=== PATIENT | female | born 1990 | race Caucasian/White ===

== ENCOUNTER 2018-02-03 13:56 | Emergency (ER) | payer SELFPAY ==
--- NOTE | 2018-02-03 15:24 | ER ---
Nurse's Notes [facility] Name: Teetee Hannah Age: 27 yrs Sex: Female : 1990 Arrival Date: 02/03/2018 Time: 13:58 Bed Waiting Private MD: Diagnosis: Presentation: 02/03 14:40 Presenting complaint: Patient states: Sent by PCP for BGL >400. Pt reports "I feel hb fine, I just need clearance to go back to work.". Transition of care: patient was not received from another setting of care. Onset of symptoms was February 03, 2018. Risk Assessment: Do you want to hurt yourself or someone else? Patient reports no desire to harm self or others. 14:40 Method Of Arrival: Ambulatory hb 14:40 Acuity: LO 3 hb Historical: - Allergies: 14:42 Humalog; hb - Home Meds: 14:42 Latuda 40 mg Oral tab 1 tab once daily for Depression associated with Bipolar Disorder hb [Active]; Trintellix oral oral [Active]; Novolog 100 unit/mL Sub-Q soln [Active]; - PMHx: 14:42 Bipolar disorder; Depression; Diabetes - IDDM; hb - PSHx: 14:42 None; hb - Immunization history:: Adult Immunizations up to date. - Social history:: Smoking status: Patient/guardian denies using tobacco. - Ebola Screening: : No symptoms or risks identified at this time. Vital Signs: 14:40 BP 123 / 88; Pulse 105; Resp 16; Temp 98.4; Pulse Ox 100% on R/A; Weight 91.63 kg; hb Height 5 ft. 9 in. (175.26 cm); Pain 0/10; 14:40 Body Mass Index 29.83 (91.63 kg, 175.26 cm) hb ED Course: 13:58 Patient arrived in ED. sb2 14:41 Triage completed. hb 14:42 Arm band placed on right wrist. hb Administered Medications: No medications were administered Point of Care Testing: Blood Glucose: 14:40 Blood Glucose: 73 mg/dL; hb Ranges: Outcome: 15:23 Patient left the ED. hb Signatures: Naila Chavarria RN RN Marybeth Magaña sb2
[2018-02-03 16:35] VITALS: BP 123/88; TEMP 98.4; O2SAT 100
== END 2018-02-03 15:23 | disposition left against medical advice (07) ==
LOC: ER 13:56
DX: Z53.21 Procedure and treatment not carried out due to patient leaving prior to being seen by health care provider (principal)
CPT/HCPCS: 82962; 99281

== ENCOUNTER 2018-03-03 07:02 | Emergency (ER) | payer OTHER, SELFPAY ==
[2018-03-03] MEDS ORDERED: NA CHLORIDE 0.9% 1,000 ML ONE ×2 (07:27→09:53)
[2018-03-03] MEDS ORDERED: ONDANSETRON 4 MG/2 ML VIAL ONE (07:27)
[2018-03-03 07:31] LABS: Urine Blood NEGATIVE (NEG); Urine Glucose 2+ (NEG); Urine Protein NEGATIVE (NEG); Urine Specific Gravity 1.025 (1.005-1.030); Urine pH 5.5 (5.0-7.0)
[2018-03-03 07:56] LABS: Absolute Lymphocytes (CBC) 0.8 K/uL (0.7-4.9); Absolute Monocytes 0.5 K/uL (0.1-1.3); Absolute Neutrophil 5.3 K/uL (1.8-8.0); Basophils % 0.2 % (0-1.3); Eosinophils % 0.3 % (0-4.4); Hematocrit 40.3 % (36.0-45.0); Lymphocytes % 12.3 % (15.3-44.8); MPV 9.9 fL (7.6-11.3); RBC Red Blood Cell Count 4.25 M/uL (3.86-4.86)
[2018-03-03 08:03] LABS: Urine Bacteria <20 /HPF (<20); Urine Culture Reflex Order NOT NEEDED; Urine RBC <5 /HPF (NONE SEEN)
[2018-03-03 08:11] LABS: Albumin 3.1 g/dL (3.4-5.0); Bilirubin Direct 0.3 mg/dL (0-0.2); Bilirubin Total 1.1 mg/dL (0.2-1.0); Potassium 4.7 mmol/L (3.5-5.1)
[2018-03-03] MEDS ORDERED: INSULIN -REGULAR HUMAN 50 UNIT/0.5 ML ML ONE (08:52)
[2018-03-03 10:12] LABS: Potassium 4.7 mmol/L (3.5-5.1)
--- NOTE | 2018-03-03 11:20 | EDPHYS ---
Physician Documentation [facility] Name: Teetee Hannah Age: 27 yrs Sex: Female : 1990 Arrival Date: 03/03/2018 Time: 07:03 Bed 7 Private MD: Yaakov Goins H ED Physician Keshawn Sousa HPI: 03/03 07:21 This 27 yrs old Female presents to ER via EMS with complaints of High Blood kdr Sugar. 07:21 This 27 yrs old Female presents to ER via EMS with complaints of High Blood kdr Sugar \T\ vomiting. 07:21 The patient states that she changed her insulin site last night and then this morning, kdr she began to have vomiting. She took her BS and noted it to be 416. She feels like she may be becoming debhydrated.. Onset: The symptoms/episode began/occurred gradually, just prior to arrival, this morning. Severity of symptoms: At their worst the symptoms were mild in the emergency department the symptoms have improved mildly. The patient has experienced similar episodes in the past, a few times. The patient has not recently seen a physician. Historical: - Allergies: 07:06 Humalog; ak1 - Home Meds: 07:06 Latuda 40 mg Oral tab 1 tab once daily for Depression associated with Bipolar Disorder ak1 [Active]; Novolog 100 unit/mL Sub-Q soln [Active]; Trintellix Oral [Active]; Wellbutrin XL 80mg Oral 1 tab once daily for Depression associated with Bipolar Disorder [Active]; - PMHx: 07:06 Bipolar disorder; Depression; Diabetes - IDDM; ak1 - PSHx: 07:06 None; ak1 - Immunization history:: Adult Immunizations unknown. - Social history:: Smoking status: unknown. - Ebola Screening: : No symptoms or risks identified at this time. ROS: 07:21 Constitutional: Negative for fever, chills, and weight loss, Eyes: Negative for injury, kdr pain, redness, and discharge, ENT: Negative for injury, pain, and discharge, Neck: Negative for injury, pain, and swelling, Cardiovascular: Negative for palpitations, and edema - she did have chest pain when she was vomiting Respiratory: Negative for shortness of breath, cough, wheezing, and pleuritic chest pain, Abdomen/GI: Negative for abdominal pain, nausea, vomiting, diarrhea, and constipation, Back: Negative for injury and pain, : Negative for injury, bleeding, discharge, and swelling, MS/Extremity: Negative for injury and deformity, Skin: Negative for injury, rash, and discoloration, Neuro: Negative for headache, weakness, numbness, tingling, and seizure activity. Psych: Negative for depression, anxiety, suicide ideation, homicidal ideation, and hallucinations, Allergy/Immunology: Negative for hives, rash, and allergies, Hematologic/Lymphatic: Negative for swollen nodes, abnormal bleeding, and unusual bruising. 07:21 Endocrine: Positive for Increased vomiting and feeling of dehydration. Exam: 07:21 Constitutional: This is a well developed, well nourished patient who is awake, alert, kdr and in no acute distress. Head/Face: Normocephalic, atraumatic. Eyes: Pupils equal round and reactive to light, extra-ocular motions intact. Lids and lashes normal. Conjunctiva and sclera are non-icteric and not injected. Cornea within normal limits. Periorbital areas with no swelling, redness, or edema. Neck: Trachea midline, no thyromegaly or masses palpated, and no cervical lymphadenopathy. Supple, full range of motion without nuchal rigidity, or vertebral point tenderness. No Meningismus. Chest/axilla: Normal chest wall appearance and motion. Nontender with no deformity. No lesions are appreciated. Cardiovascular: Regular rate and rhythm with a normal S1 and S2. No gallops, murmurs, or rubs. Normal PMI, no JVD. No pulse deficits. Respiratory: Lungs have equal breath sounds bilaterally, clear to auscultation and percussion. No rales, rhonchi or wheezes noted. No increased work of breathing, no retractions or nasal flaring. Abdomen/GI: Soft, non-tender, with normal bowel sounds. No distension or tympany. No guarding or rebound. No evidence of tenderness throughout - Insulin oump location LLQ Back: No spinal tenderness. No costovertebral tenderness. Full range of motion. Skin: Warm, dry with normal turgor. Normal color with no rashes, no lesions, and no evidence of cellulitis. MS/ Extremity: Pulses equal, no cyanosis. Neurovascular intact. Full, normal range of motion. Neuro: Awake and alert, GCS 15, oriented to person, place, time, and situation. Cranial nerves II-XII grossly intact. Motor strength 5/5 in all extremities. Sensory grossly intact. Cerebellar exam normal. Normal gait. Psych: Awake, alert, with orientation to person, place and time. Behavior, mood, and affect are within normal limits. Vital Signs: 07:03 BP 123 / 82; Pulse 83; Resp 18; Temp 97.6(O); Pulse Ox 100% on R/A; Weight 90.72 kg ak1 (R); Height 5 ft. 9 in. (175.26 cm) (R); Pain 2/10; 08:00 BP 112 / 62; Pulse 70; Resp 17; Pulse Ox 99% on R/A; Pain 0/10; sg 09:00 BP 115 / 64; Pulse 72; Resp 17; Pulse Ox 100% on R/A; Pain 0/10; sg 07:03 Body Mass Index 29.53 (90.72 kg, 175.26 cm) ak1 MDM: 11:19 Patient medically screened. kdr 15:34 Data reviewed: vital signs, lab test result(s), EKG, radiologic studies. Counseling: I kdr had a detailed discussion with the patient and/or guardian regarding: the historical points, exam findings, and any diagnostic results supporting the discharge/admit diagnosis, lab results, radiology results, the need for outpatient follow up. Special discussion: I discussed with the patient/guardian in detail that at this point there is no indication for admission to the hospital. It is understood, however, that if the symptoms persist or worsen the patient needs to return immediately for re-evaluation. 03/03 07:10 Order name: FSBG - FOR PT WITH NO ID 03/03 07:13 Order name: Urine Dipstick--Ancillary (enter results); Complete Time: 07:56 eb 03/03 07:13 Order name: Urine --Ancillary (enter results); Complete Time: 07:56 eb 03/03 07:21 Order name: Basic Metabolic Panel; Complete Time: 08:52 kdr 03/03 07:21 Order name: CBC with Diff; Complete Time: 08:52 kdr 03/03 07:21 Order name: Creatinine for Radiology; Complete Time: 08:52 kdr 03/03 07:21 Order name: Hepatic Function; Complete Time: 08:52 kdr 03/03 07:21 Order name: Lipase; Complete Time: 08:52 kdr 07 07:21 Order name: Urine Microscopic Only; Complete Time: 08:52 kdr 03/03 08:09 Order name: Glucose, Ancillary Testing; Complete Time: 08:52 EDMS 03/03 09:44 Order name: Chem 7 kdr 03/03 07:21 Order name: Misc. Order: Ice Chips; Complete Time: 09:14 kdr 03/03 07:21 Order name: IV Saline Lock; Complete Time: 07:41 kdr 03/03 07:21 Order name: Labs collected and sent; Complete Time: 07:41 kdr 03/03 07:21 Order name: Urine Dipstick-Ancillary (obtain specimen); Complete Time: :41 kdr Administered Medications: 07:30 Drug: NS 0.9% 1000 ml Route: IV; Rate: 1 bolus; Site: right antecubital; sg 08:00 Follow up: Response: No adverse reaction; IV Status: Completed infusion; IV Intake: sg 990ml 07:30 Drug: Zofran 4 mg Route: IVP; Site: right antecubital; sg 09:00 Follow up: Response: No adverse reaction; Nausea is decreased sg 08:40 Drug: Insulin Regular Human 4 units {Co-Signature: hb (Naila Chavarria RN).} Route: IVP; sg Site: right antecubital; 09:35 Follow up: Response: No adverse reaction; Blood sugar is lowered sg 10:05 Drug: NS 0.9% 1000 ml Route: IV; Rate: 1 bolus; Site: right antecubital; Point of Care Testing: Blood Glucose: 09:38 Blood Glucose: 199 mg/dL; sg 10:01 Blood Glucose: 187 mg/dL; hb Ranges: Critical Glucose Levels:Adult <50 mg/dl or >400 mg/dl <40 mg/dl or >180 mg/dl Disposition: 03/03/18 11:19 Discharged to Home. Impression: Hyperglycemia, unspecified, Mild/early DKA. - Condition is Stable. - Discharge Instructions: Hyperglycemia, [id number]. - Work release form, Medication Reconciliation Form, Thank You Letter form. - Follow up: Yaakov Goins DO; When: 2 - 3 days; Reason: If symptoms return, Further diagnostic work-up, Recheck today's complaints, Continuance of care, Re-evaluation by your physician. - Problem is an acute exacerbation. - Symptoms have improved. Signatures: Dispatcher [employer] EDDaren Kerr, RN RN sg Keshawn Sousa MD MD [facility] Yokasta Hernandez RN RN Savannah Quinones RN RN ak1 Naila Chavarria RN Corrections: (The following items were deleted from the chart) 11:28 11:19 03/03/2018 11:19 Discharged to Home. Impression: Hyperglycemia, unspecified; sg Mild/early DKA. Condition is Stable. Forms are Work release form, Medication Reconciliation Form, Thank You Letter, Antibiotic Education, Prescription Opioid Use. Follow up: Yaakov Goins; When: 2 - 3 days; Reason: If symptoms return, Further diagnostic work-up, Recheck today's complaints, Continuance of care, Re-evaluation by your physician. Problem is an acute exacerbation. Symptoms have improved. kdr
--- NOTE | 2018-03-03 11:20 | ER ---
Nurse's Notes [facility] Name: Teetee Hannah Age: 27 yrs Sex: Female : 1990 Arrival Date: 03/03/2018 Time: 07:03 Bed 7 Private MD: Yaakov Goins H Diagnosis: Hyperglycemia, unspecified;Mild/early DKA Presentation: 03/03 07:04 Presenting complaint: EMS states: pt with FSBG 443 due to insulin pump fail. pt changed ak1 her pump site this morning and bolused insulin. pt c/o "slight chest discomfort.". Transition of care: patient was not received from another setting of care. Onset of symptoms was March 03, 2018. Risk Assessment: Do you want to hurt yourself or someone else? Patient reports no desire to harm self or others. Initial Sepsis Screen: Does the patient meet any 2 criteria? No. Patient's initial sepsis screen is negative. Does the patient have a suspected source of infection? No. Patient's initial sepsis screen is negative. Care prior to arrival: None. 07:04 Method Of Arrival: EMS: [facility] ak1 07:04 Acuity: LO 3 ak1 Historical: - Allergies: 07:06 Humalog; ak1 - Home Meds: 07:06 Latuda 40 mg Oral tab 1 tab once daily for Depression associated with Bipolar Disorder ak1 [Active]; Novolog 100 unit/mL Sub-Q soln [Active]; Trintellix Oral [Active]; Wellbutrin XL 80mg Oral 1 tab once daily for Depression associated with Bipolar Disorder [Active]; - PMHx: 07:06 Bipolar disorder; Depression; Diabetes - IDDM; ak1 - PSHx: 07:06 None; ak1 - Immunization history:: Adult Immunizations unknown. - Social history:: Smoking status: unknown. - Ebola Screening: : No symptoms or risks identified at this time. Screenin:07 Abuse screen: Denies threats or abuse. Denies injuries from another. Nutritional ak1 screening: No deficits noted. Tuberculosis screening: No symptoms or risk factors identified. Fall Risk None identified. Assessment: 07:12 General: Appears in no apparent distress. comfortable, well groomed, well developed, sg well nourished, Behavior is calm, cooperative, appropriate for age. Pain: Complains of pain in chest and abdomen Quality of pain is described as aching, "discomfort". Neuro: Level of Consciousness is awake, alert, obeys commands, Oriented to person, place, time, situation, Negotiations Director are equal bilaterally Moves all extremities. Full function Gait is steady, Speech is normal, Facial symmetry appears normal. Cardiovascular: Heart tones S1 S2 present Capillary refill is brisk in bilateral fingers Patient's skin is warm and dry. Chest pain quality is "discomfort, aching.". Respiratory: Airway is patent Respiratory effort is even, unlabored, Respiratory pattern is regular, symmetrical. GI: Abdomen is flat, non-distended, Reports vomiting, Patient currently denies constipation, diarrhea, nausea. : No signs and/or symptoms were reported regarding the genitourinary system. EENT: No signs and/or symptoms were reported regarding the EENT system. Derm: Skin is intact, is healthy with good turgor, Skin is dry, Skin is pink, warm \\T\\ dry. Skin temperature is warm. Musculoskeletal: No signs and/or symptoms reported regarding the musculoskeletal system. 07:15 Reassessment: at bedside evaluating pt at this time, awaiting orders. sg 09:38 Reassessment: Patient appears in no apparent distress at this time. Patient and/or sg family updated on plan of care and expected duration. Pain level reassessed. Patient is alert, oriented x 3, equal unlabored respirations, skin warm/dry/pink. reports ready to be d/c, notified of pt status and request to go home, no new orders received at this time, will continue to monitor Patient denies pain at this time. Patient states feeling better. Vital Signs: 07:03 BP 123 / 82; Pulse 83; Resp 18; Temp 97.6(O); Pulse Ox 100% on R/A; Weight 90.72 kg ak1 (R); Height 5 ft. 9 in. (175.26 cm) (R); Pain 2/10; 08:00 BP 112 / 62; Pulse 70; Resp 17; Pulse Ox 99% on R/A; Pain 0/10; sg 09:00 BP 115 / 64; Pulse 72; Resp 17; Pulse Ox 100% on R/A; Pain 0/10; sg 07:03 Body Mass Index 29.53 (90.72 kg, 175.26 cm) ak1 ED Course: 07:03 Patient arrived in ED. ak1 07:03 Keshawn Sousa MD is Attending Physician. kdr 07:03 Arm band placed on Patient placed in an exam room, on a stretcher, Patient notified of ak1 wait time. 07:05 Triage completed. ak1 07:07 Patient has correct armband on for positive identification. Bed in low position. Call ak1 light in reach. Side rails up X 1. Pulse ox on. NIBP on. 07:09 Daren Dinh, JOSE is Primary Nurse. sg 07:11 Yaakov Goins DO is Private Physician. sg 07:30 Initial lab(s) drawn, by ks, sent to lab. Urine collected: clean catch specimen. sg Inserted saline lock: 20 gauge in right antecubital area, using aseptic technique. Blood collected. 08:21 Notified primary nurse of glucose-441. sv 08:30 Diet: Patient given ice chips. sg 09:15 Diet: Tolerated well. sg 11:17 Yaakov Goins DO is Referral Physician. kdr Administered Medications: 07:30 Drug: NS 0.9% 1000 ml Route: IV; Rate: 1 bolus; Site: right antecubital; sg 08:00 Follow up: Response: No adverse reaction; IV Status: Completed infusion; IV Intake: sg 990ml 07:30 Drug: Zofran 4 mg Route: IVP; Site: right antecubital; sg 09:00 Follow up: Response: No adverse reaction; Nausea is decreased sg 08:40 Drug: Insulin Regular Human 4 units {Co-Signature: hb (Naila Chavarria RN).} Route: IVP; sg Site: right antecubital; 09:35 Follow up: Response: No adverse reaction; Blood sugar is lowered sg 10:05 Drug: NS 0.9% 1000 ml Route: IV; Rate: 1 bolus; Site: right antecubital; Point of Care Testing: Blood Glucose: 09:38 Blood Glucose: 199 mg/dL; sg 10:01 Blood Glucose: 187 mg/dL; hb Ranges: Intake: 08:00 IV: 990ml; Total: 990ml. sg Outcome: 11:19 Discharge ordered by . kdr 11:28 Patient left the ED. sg Signatures: Negrita Jacome, RN RN sv Daren Dinh, RN RN sg Keshawn Sousa MD MD [facility] Yokasta Hernandez RN RN iw Savannah Quinones RN RN ak1 Naila Chavarria RN RN hb Naila Chavarria RN hb Corrections: (The following items were deleted from the chart) 09:13 09:10 Insulin Regular Human 4 units IVP in right antecubital [facility]
[2018-03-03 11:31] VITALS: TEMP 97.6
[2018-03-03 11:34] VITALS: BP 115/64; O2SAT 100
== END 2018-03-03 11:28 | disposition home or self-care (01) ==
LOC: ER 07:02
DX: E10.10 Type 1 diabetes mellitus with ketoacidosis without coma (principal); F31.9 Bipolar disorder, unspecified; Z96.41 Presence of insulin pump (external) (internal)
CPT/HCPCS: 36415; 80048; 80076; 81003; 81015; 81025; 82962; 83690; 85025; 96374; 96375; 99284; J2405; J7030

== ENCOUNTER 2018-03-12 13:18 | Inpatient (IN) | payer OTHER ==
[2018-03-12] MEDS ORDERED: NA CHLORIDE 0.9% 2,000 ML ONE (14:10)
[2018-03-12 14:41] LABS: Absolute Lymphocytes (CBC) 1.1 K/uL (0.7-4.9); Absolute Monocytes 0.7 K/uL (0.1-1.3); Absolute Neutrophil 7.2 K/uL (1.8-8.0); Basophils % 0.6 % (0-1.3); Hematocrit 45.2 % (36.0-45.0); Lymphocytes % 12.5 % (15.3-44.8); MCH 30.7 pg (27.0-35.0); MCV 92.1 fL (80-100); MPV 9.7 fL (7.6-11.3); Monocytes % 7.8 % (3.3-12.3); RBC Red Blood Cell Count 4.91 M/uL (3.86-4.86)
--- NOTE | 2018-03-12 15:12 | RAD REPORT ---
EXAM DESCRIPTION: RAD - Chest Single View - 03/12/2018 2:20 pm CLINICAL HISTORY: Chest pain COMPARISON: September 10 TECHNIQUE: AP portable chest image was obtained 1416 hours . FINDINGS: Lungs are clear. Heart and vasculature are normal. No measurable pleural effusion and no p neumothorax. No gross bony abnormality seen. No acute aortic findings suspected. IMPRESSION: No acute cardiopulmonary process. No significant interval change.
[2018-03-12 15:44] LABS: BUN Blood Urea Nitrogen 11 mg/dL (7-18); Glucose Level 159 mg/dL (74-106); Potassium 4.9 mmol/L (3.5-5.1); Sodium Level 136 mmol/L (136-145)
[2018-03-12 15:46] LABS: Bicarbonate 14 mmol/L (21-32)
[2018-03-12 16:49] LABS: Potassium 4.9 mmol/L (3.5-5.1)
[2018-03-12] MEDS ORDERED: NA BICARB IV SCH (17:00)
[2018-03-12] MEDS ORDERED: D5W IV SCH (17:00)
[2018-03-12 17:12] LABS: Arterial Blood Carboxyhemoglob 1.1 % (0-1.5); Blood Gas Oxyhemoglobin 95.7 % (94-97); Blood O2 Saturation 97.8 % (92-98.5)
[2018-03-12 17:27] LABS: Urine Blood 1+ (NEG); Urine Glucose NEGATIVE (NEG); Urine Protein 2+ (NEG); Urine Specific Gravity >1.030 (1.005-1.030)
--- NOTE | 2018-03-12 17:37 | ER ---
Nurse's Notes [facility] Name: Teetee Hannah Age: 27 yrs Sex: Female : 1990 Arrival Date: 03/12/2018 Time: 13:20 Bed 5 Private MD: Out, [facility] Diagnosis: Type 1 diabetes mellitus with ketoacidosis Presentation: 03/12 13:47 Presenting complaint: Patient states: " I want to make sure I'm not in DKA, I checked ph my sugar this morning and it was 433, I checked my ketones and they were "large" and I've been throwing up acidic stuff." Pt reports taking 8 units of Novolog, last BGL 214, denies pain, fever, SOB or diarrhea. Transition of care: patient was not received from another setting of care. Onset of symptoms was March 12, 2018. Risk Assessment: Do you want to hurt yourself or someone else? Patient reports no desire to harm self or others. Initial Sepsis Screen: Does the patient meet any 2 criteria? No. Patient's initial sepsis screen is negative. Does the patient have a suspected source of infection? No. Patient's initial sepsis screen is negative. Care prior to arrival: Medication(s) given: Novolog. 13:47 Method Of Arrival: Ambulatory ph 13:47 Acuity: LO 2 ph Historical: - Allergies: 13:51 Humalog; ph - Home Meds: 13:51 Latuda 40 mg Oral tab 1 tab once daily for Depression associated with Bipolar Disorder ph [Active]; Novolog 100 unit/mL Sub-Q soln [Active]; Trintellix Oral [Active]; Wellbutrin XL 80mg Oral 1 tab once daily for Depression associated with Bipolar Disorder [Active]; - PMHx: 13:51 Bipolar disorder; Depression; Diabetes - IDDM; ph 13:52 insulin pump; ph - PSHx: 13:51 gastric sleeve; ph - Immunization history:: Adult Immunizations unknown. - Social history:: Smoking status: unknown. - Ebola Screening: : No symptoms or risks identified at this time. Screenin:10 Abuse screen: Denies threats or abuse. Denies injuries from another. Nutritional sg screening: No deficits noted. Tuberculosis screening: No symptoms or risk factors identified. Never had TB. Fall Risk None identified. Assessment: 14:10 General: Appears in no apparent distress. comfortable, well groomed, well developed, sg well nourished, Behavior is calm, cooperative, appropriate for age. Pain: Denies pain. Neuro: No deficits noted. Cardiovascular: Capillary refill is brisk in bilateral fingers Patient's skin is warm and dry. Respiratory: Airway is patent Respiratory effort is even, unlabored, Respiratory pattern is regular, symmetrical, GI: Reports nausea, vomiting. : No signs and/or symptoms were reported regarding the genitourinary system. EENT: No signs and/or symptoms were reported regarding the EENT system. Derm: Skin is pink, warm \\T\\ dry. Musculoskeletal: No deficits noted. No signs and/or symptoms reported regarding the musculoskeletal system. 16:20 Reassessment: Eugenio WOO at bedside updating pt on results and POC, need for sg admission, pt stated understanding, awaiting admission orders at this time. 17:54 Reassessment: at bedside evaluating pt at this time, awaiting IV Insulin drip sg from pharmacy at this time, pt stated understanding, pt mother to return to ED after running errands, will continue to monitor. Vital Signs: 13:50 BP 113 / 107; Pulse 113; Resp 22; Temp 98.0; Pulse Ox 98% on R/A; Weight 84.82 kg; ph Height 5 ft. 9 in. (175.26 cm); Pain 0/10; 16:53 BP 141 / 86; Pulse 99; Resp 17 S; Pulse Ox 99% on R/A; Pain 0/10; sg 19:06 BP 129 / 82; Pulse 96; Resp 18; Pulse Ox 100% ; Pain 0/10; ak1 20:00 BP 117 / 76; Pulse 94; Resp 18; Pulse Ox 100% on R/A; Pain 0/10; oe 13:50 Body Mass Index 27.61 (84.82 kg, 175.26 cm) ph ED Course: 13:20 Patient arrived in ED. sb2 13:21 Out, of Town is Private Physician. sb2 13:46 Daren Dinh, RN is Primary Nurse. sg 13:50 Triage completed. ph 13:52 Arm band placed on. ph 13:59 Maricruz Schulz FNP-C [facility]. snw 13:59 Farrukh Manuel MD is Attending Physician. snw 14:18 X-ray completed. Portable x-ray completed in exam room. Patient tolerated procedure la2 well. 14:18 Chest Single View XRAY In Process Unspecified. EDMS 14:28 Initial lab(s) drawn, by me, sent to lab. First set of blood cultures drawn by me. dh3 Inserted saline lock: 20 gauge in right antecubital area, using aseptic technique. Blood collected. 14:46 EKG done, by technical account manager. reviewed by Maricruz JOLLEY. 3 17:36 Mar Baeza MD is Hospitalizing Provider. snw 19:08 Report given to Savannah GARCIA. sv 19:52 Patient has correct armband on for positive identification. Bed in low position. Call ak1 light in reach. Side rails up X 1. pt refused gown. chart clerk on. Pulse ox on. NIBP on. 19:53 No provider procedures requiring assistance completed. ak1 19:53 Patient admitted, IV remains in place. ak1 Administered Medications: Discontinued: D5W 1000 ml, Sodium Bicarbonate 100 mEq IV at 200 ml/hr continuous 14:18 Drug: NS 0.9% (30 ml/kg) 30 ml/kg Route: IV; Rate: bolus; Site: right antecubital; sg 16:31 Follow up: Response: No adverse reaction; IV Status: Completed infusion; IV Intake: sg 2000ml 20:17 Follow up: IV Status: Order to discontinue infusion ak1 17:10 Drug: D5W 1000 ml, Sodium Bicarbonate 100 mEq Route: IV; Rate: 200 ml/hr; Site: right sg antecubital; 17:52 Drug: D5W 1000 ml Route: IV; Rate: 100 ml/hr; Site: right antecubital; sg 19:55 Follow up: IV Status: Infusion continued upon admission ak1 18:20 Drug: Insulin Drip - (Insulin Regular Human 100 units, NS 0.9% 100 ml) {Co-Signature: [facility] (Negrita Jacome RN).} Route: IV; Rate: 2 units/hr; Site: right antecubital; 19:54 Follow up: IV Status: Infusion continued upon admission ak1 Point of Care Testing: Blood Glucose: 13:52 Blood Glucose: 158 mg/dL; dh3 19:00 Blood Glucose: 145 mg/dL; sv 20:00 Blood Glucose: 129 mg/dL; oe Ranges: Intake: 16:31 IV: 2000ml; Total: 2000ml. sg Outcome: 17:37 Decision to Hospitalize by Provider. snw 19:53 Condition: stable ak1 19:53 Instructed on the need for admit. 20:16 Admitted to ICU accompanied by nurse, via wheelchair, room ICU2, on monitor, with ak1 chart, Report called to Sheryl 20:17 Patient left the ED. ak1 Signatures: Dispatcher [employer] EDNegrita Giron, RN RN sv Daren Dinh RN RN sg Maricruz Schulz, STRENGTH AND CONDITIONING COACH-C STRENGTH AND CONDITIONING COACH-Csnw Savannah Quinones RN RN ak1 Niecy Bailey RN RN Leo Hercules, Sudha 3 Mariaelena Bay la2 Marybeth Sarmiento2 Shanthi Vu 3 Negrita Jacome RN sv Corrections: (The following items were deleted from the chart) 13:53 13:47 Acuity: LO 3 ph ph 14:46 14:45 EKG done, by technical account manager. reviewed by Farrukh Manuel MD sm3 sm3
--- NOTE | 2018-03-12 17:37 | EDPHYS ---
Physician Documentation [facility] Name: Teetee Hannah Age: 27 yrs Sex: Female : 1990 Arrival Date: 03/12/2018 Time: 13:20 Bed 5 Private MD: Out, of [facility] [address], [facility] [address] ED Physician Farrukh Manuel HPI: 03/12 14:32 This 27 yrs old Female presents to ER via Ambulatory with complaints of DKA. snw 14:32 Onset: The symptoms/episode began/occurred gradually, and became persistent yesterday, snw and improved 1 hours ago. Associated signs and symptoms: Pertinent positives: vomiting. Modifying factors: The patient symptoms are alleviated by nothing. The patient has experienced similar episodes in the past. It is unknown whether or not the patient has recently seen a physician. no changes to insulin pump or dose. Historical: - Allergies: 13:51 Humalog; ph - Home Meds: 13:51 Latuda 40 mg Oral tab 1 tab once daily for Depression associated with Bipolar Disorder ph [Active]; Novolog 100 unit/mL Sub-Q soln [Active]; Trintellix Oral [Active]; Wellbutrin XL 80mg Oral 1 tab once daily for Depression associated with Bipolar Disorder [Active]; - PMHx: 13:51 Bipolar disorder; Depression; Diabetes - IDDM; ph 13:52 insulin pump; ph - PSHx: 13:51 gastric sleeve; ph - Immunization history:: Adult Immunizations unknown. - Social history:: Smoking status: unknown. - Ebola Screening: : No symptoms or risks identified at this time. ROS: 14:31 Constitutional: Negative for fever, chills, and weight loss, Eyes: Negative for injury, snw pain, redness, and discharge, ENT: Negative for injury, pain, and discharge, Neck: Negative for injury, pain, and swelling, Cardiovascular: Negative for chest pain, palpitations, and edema, Respiratory: Negative for shortness of breath, cough, wheezing, and pleuritic chest pain, Back: Negative for injury and pain, : Negative for injury, bleeding, discharge, and swelling, MS/Extremity: Negative for injury and deformity, Skin: Negative for injury, rash, and discoloration, Neuro: Negative for headache, weakness, numbness, tingling, and seizure. 14:31 Abdomen/GI: Positive for nausea and vomiting, anorexia, large ketones and fsbs in the 300's, DKA 2 times in the past 2 weeks. Exam: 14:31 Constitutional: This is a well developed, well nourished patient who is awake, alert, snw and in no acute distress. Head/Face: Normocephalic, atraumatic. Eyes: Pupils equal round and reactive to light, extra-ocular motions intact. Lids and lashes normal. Conjunctiva and sclera are non-icteric and not injected. Cornea within normal limits. Periorbital areas with no swelling, redness, or edema. ENT: Nares patent. No nasal discharge, no septal abnormalities noted. Tympanic membranes are normal and external auditory canals are clear. Oropharynx with no redness, swelling, or masses, exudates, or evidence of obstruction, uvula midline. Mucous membranes moist. Neck: Trachea midline, no thyromegaly or masses palpated, and no cervical lymphadenopathy. Supple, full range of motion without nuchal rigidity, or vertebral point tenderness. No Meningismus. Chest/axilla: Normal chest wall appearance and motion. Nontender with no deformity. No lesions are appreciated. Cardiovascular: Regular rate and rhythm with a normal S1 and S2. No gallops, murmurs, or rubs. Normal PMI, no JVD. No pulse deficits. Respiratory: Lungs have equal breath sounds bilaterally, clear to auscultation and percussion. No rales, rhonchi or wheezes noted. No increased work of breathing, no retractions or nasal flaring. Abdomen/GI: Soft, non-tender, with normal bowel sounds. No distension or tympany. No guarding or rebound. No evidence of tenderness throughout. Back: No spinal tenderness. No costovertebral tenderness. Full range of motion. Skin: Warm, dry with normal turgor. Normal color with no rashes, no lesions, and no evidence of cellulitis. MS/ Extremity: Pulses equal, no cyanosis. Neurovascular intact. Full, normal range of motion. Neuro: Awake and alert, GCS 15, oriented to person, place, time, and situation. Cranial nerves II-XII grossly intact. Motor strength 5/5 in all extremities. Sensory grossly intact. Cerebellar exam normal. Normal gait. Vital Signs: 13:50 BP 113 / 107; Pulse 113; Resp 22; Temp 98.0; Pulse Ox 98% on R/A; Weight 84.82 kg; ph Height 5 ft. 9 in. (175.26 cm); Pain 0/10; 16:53 BP 141 / 86; Pulse 99; Resp 17 S; Pulse Ox 99% on R/A; Pain 0/10; sg 19:06 BP 129 / 82; Pulse 96; Resp 18; Pulse Ox 100% ; Pain 0/10; ak1 20:00 BP 117 / 76; Pulse 94; Resp 18; Pulse Ox 100% on R/A; Pain 0/10; oe 13:50 Body Mass Index 27.61 (84.82 kg, 175.26 cm) ph MDM: 14:18 Patient medically screened. snw 16:57 Data reviewed: vital signs, nurses notes. Data interpreted: Pulse oximetry: on room snw air. Response to treatment: acidosis, will get ABG and continue ivf. 17:37 Physician consultation: Mar Baeza MD was called at 17:37, was contacted at 17:37, snw regarding admission, to the ICU. 03/12 14:03 Order name: Basic Metabolic Panel; Complete Time: 15:50 snw 03/12 14:03 Order name: Blood Culture Adult (2) snw 03/12 14:03 Order name: CBC with Diff; Complete Time: 14:48 snw 03/12 14:03 Order name: Test, Serum; Complete Time: 15:50 snw 03/12 14:24 Order name: Glucose, Ancillary Testing; Complete Time: 14:31 EDPR 03/12 16:13 Order name: Chem 7; Complete Time: 16:52 snw 03/12 14:03 Order name: Chest Single View XRAY; Complete Time: 15:13 snw 03/12 16:57 Order name: ABG; Complete Time: 17:32 snw 03/12 17:19 Order name: Urine Dipstick--Ancillary (enter results); Complete Time: 17:32 bd 03/12 17:28 Order name: ARTERIAL BLOOD GAS EDPR 03/12 17:40 Order name: Acetone Level EDPR 03/12 18:59 Order name: Basic Metabolic Panel EDPR 03/12 19:15 Order name: Osmolality, Serum EDPR 03/12 14:03 Order name: Accucheck; Complete Time: 14:21 snw 03/12 14:03 Order name: Cardiac monitoring; Complete Time: 14:22 03/12 14:03 Order name: EKG - Nurse/Tech; Complete Time: 14:32 03/12 14:03 Order name: IV Saline Lock - Large Bore; Complete Time: 14:22 03/12 14:03 Order name: Labs collected and sent; Complete Time: 14:22 03/12 14:03 Order name: O2 Per Protocol; Complete Time: 14:22 03/12 14:03 Order name: O2 Sat Monitoring; Complete Time: 14:22 03/12 14:03 Order name: Urine Dipstick-Ancillary (obtain specimen); Complete Time: 16:31 snw Administered Medications: Discontinued: D5W 1000 ml, Sodium Bicarbonate 100 mEq IV at 200 ml/hr continuous 14:18 Drug: NS 0.9% (30 ml/kg) 30 ml/kg Route: IV; Rate: bolus; Site: right antecubital; sg 16:31 Follow up: Response: No adverse reaction; IV Status: Completed infusion; IV Intake: sg 2000ml 20:17 Follow up: IV Status: Order to discontinue infusion ak1 17:10 Drug: D5W 1000 ml, Sodium Bicarbonate 100 mEq Route: IV; Rate: 200 ml/hr; Site: right sg antecubital; 17:52 Drug: D5W 1000 ml Route: IV; Rate: 100 ml/hr; Site: right antecubital; sg 19:55 Follow up: IV Status: Infusion continued upon admission ak1 18:20 Drug: Insulin Drip - (Insulin Regular Human 100 units, NS 0.9% 100 ml) {Co-Signature: sv (Negrita Jacome RN).} Route: IV; Rate: 2 units/hr; Site: right antecubital; 19:54 Follow up: IV Status: Infusion continued upon admission ak1 Point of Care Testing: Blood Glucose: 13:52 Blood Glucose: 158 mg/dL; dh3 19:00 Blood Glucose: 145 mg/dL; sv 20:00 Blood Glucose: 129 mg/dL; oe Ranges: Critical Glucose Levels:Adult <50 mg/dl or >400 mg/dl <40 mg/dl or >180 mg/dl Disposition: 03/12/18 17:37 Hospitalization ordered by Mar Baeza for Inpatient Admission. Preliminary diagnosis is Type 1 diabetes mellitus with ketoacidosis. - Bed requested for Intensive Care Unit. - Status is Inpatient Admission. ak1 - Condition is Stable. - Problem is an acute exacerbation. - Symptoms have worsened. UTI on Admission? No Critical care time excluding procedures: 17:37 Critical care time: Bedside Care: 10 minutes, Consultation: 15 minutes, Family snw Intervention: 15 minutes. Total time: 40 minutes Addendum: 03/14/2018 20:00 Co-signature as Attending Physician, Farrukh Manuel MD I agree with the assessment and w a plan of care. Signatures: Dispatcher [employer] EDMS Chelsie Goldsmith RN JOSE Daren iDnh RN RN Maricruz Schulz, SUPERVISOR DETASSELING CREW-C SUPERVISOR DETASSELING CREW-Csnw Savannah Quinones RN RN ak Niecy Bailey RN RN Farrukh Manuel MD MD il Negrita Jacome RN Corrections: (The following items were deleted from the chart) 03/12 19:45 17:37 Hospitalization Ordered by Mar Baeza MD for Inpatient Admission. Preliminary diagnosis is Type 1 diabetes mellitus with ketoacidosis. Bed requested for Intensive Care Unit. Status is Inpatient Admission. Condition is Stable. Problem is an acute exacerbation. Symptoms have worsened. UTI on Admission? No. snw 20:17 19:45 03/12/2018 17:37 Hospitalization Ordered by Mar Baeza MD for Inpatient ak1 Admission. Preliminary diagnosis is Type 1 diabetes mellitus with ketoacidosis. Bed requested for Intensive Care Unit. Status is Inpatient Admission. Condition is Stable. Problem is an acute exacerbation. Symptoms have worsened. UTI on Admission? No. mw
[2018-03-12] MEDS ORDERED: D5W 1,000 ML IV ONE (17:39)
[2018-03-12] MEDS ORDERED: NA CHLORIDE 0.9% 1,000 ML IV ONE (17:40)
[2018-03-12] MEDS ORDERED: ONDANSETRON 4 MG/2 ML VIAL IV PRN (17:40)
[2018-03-12] MEDS ORDERED: INSULIN -REGULAR HUMAN 100 UNIT in NA CHLORIDE 0.9% 100 ML IV SCH (17:45)
[2018-03-12] MEDS: D5 0.45 NS 1,000 ML IV SCH ×2 (18:00→21:04)
--- NOTE | 2018-03-12 18:13 | P.HP ---
Certification for Inpatient Patient admitted to: Inpatient Practitioner: I am a practitioner with admitting privileges, knowledge of patient current condition, hospital course, and medical plan of care. Services: Services provided to patient in accordance with Admission requirements found in Title 42 Section 412.3 of the Code of Federal Regulations Patient History Date of Service: 03/12/18 Reason for admission: DKA History of Present Illness: Patient is a 27-year-old female with past medical history of diabetes who was recently admitted to the hospital and February for DKA. Patient comes in with intractable nausea and vomiting with a blood sugar level of 426. Patient took 16 units with through her insulin pump repeat level was 230s and she took another 8 units. Patient has ketones strips and check treat urine which was positive for ketones. Patient denies any dysuria fever chills. Patient's pop is functioning properly. Patient does see endocrinology and has an appointment tomorrow afternoon at 2:00 p.m. in [place]. Patient came into the ER for further evaluation upon arrival her blood glucose level was 159 however her gap was elevated at 19 ABG showed pH of 7.24. Patient was given 1 L normal saline bolus x2 Patient was referred for admission for DKA. When seen in the ER the patient was awake alert oriented x3 not in any acute distress. Allergies insulin lispro [From Humalog] Allergy (Unverified 04/10/17 01:27) Unknown No Known Drug Allergies Allergy (Verified 01/09/15 21:03) Unknown Humalog U-100 Insul Allergy (Uncoded 03/03/18 11:31) Unknown Home medications list reviewed: Yes Home Medications: Insulin Aspart [Novolog*] 0 units IV SEECOM 01/09/15 Lurasidone HCl [Latuda] 40 mg PO BEDTIME 09/11/17 Metformin HCl [Metformin HCl ER] 500 mg PO DAILY 09/11/17 buPROPion HCl [Bupropion HCl] 100 mg PO DAILY 09/11/17 - Past Medical/Surgical History Diabetic: Yes -: IDDM -: depression -: suicidal ideation -: intentional drug overdose -: Gastric sleeve - Family History Family History: Reviewed- Non-Contributory - Family History Mother -: Other (see notes) Notes: ETOH abuse Brother -: Other (see notes) Notes: Drug Addict Father -: Heart disease, Hypertension - Social History Smoking Status: Current some day smoker Counseled patient to stop smoking for: less than 10 minutes Alcohol use: Yes CD- Drugs: No Caffeine use: Yes Place of Residence: Home Review of Systems 10-point ROS is otherwise unremarkable Gastrointestinal: As per HPI Physical Examination - Vital Signs Temperature: 98 F Blood Pressure: 113/107 Pulse: 113 Respirations: 22 Pulse Ox (%): 98 - Physical Exam General: Alert, In no apparent distress, Oriented x3 HEENT: Atraumatic, PERRLA, Other (Dry mucous membranes), EOMI, Sclerae nonicteric Neck: Supple, 2+ carotid pulse no bruit, No LAD, Without JVD or thyroid abnormality Respiratory: Clear to auscultation bilaterally, Normal air movement, Other (No wheezing) Cardiovascular: No edema, Normal pulses, Regular rate/rhythm, Normal S1 S2 Gastrointestinal: Normal bowel sounds, Soft and benign, Non-distended, No tenderness Musculoskeletal: No clubbing, No tenderness Integumentary: No rashes, No cyanosis Neurological: Normal gait, Normal speech, Normal strength at 5/5 x4 extr, Normal tone, Normal affect - Studies Laboratory Data (last 24 hrs) 03/12/18 16:18: Sodium 139, Potassium 4.9, BUN 9, Creatinine 1.00, Glucose 139 H 03/12/18 14:28: WBC 9.1 D, Hgb 15.0, Hct 45.2 H, Plt Count 351 D 03/12/18 14:28: Sodium 136, Potassium 4.9, BUN 11, Creatinine 1.20, Glucose 159 H Imagings Data: CHEST X-RAY SHOWS NO ACUTE CARDIOPULMONARY PROCESS Assessment and Plan - Problems (Diagnosis) (1) DKA (diabetic ketoacidoses) Onset Date: 09/11/17 Current Visit: No Status: Acute Qualifiers: Diabetes mellitus type: type 1 Diabetes mellitus complication detail: without coma Qualified Code(s): E10.10 - Type 1 diabetes mellitus with ketoacidosis without coma Discharge Plan: Home - Advance Directives Does patient have a Living Will: No Does patient have a Durable POA for Healthcare: No
[2018-03-12 18:58] LABS: Potassium 4.3 mmol/L (3.5-5.1)
[2018-03-12] MEDS ORDERED: ONDANSETRON 4 MG/2 ML VIAL ONE (19:40)
[2018-03-12] MEDS ORDERED: ENOXAPARIN 40 MG/0.4 ML SQ SCH (21:00)
[2018-03-12 21:51] LABS: Potassium 4.4 mmol/L (3.5-5.1)
[2018-03-13 02:18] LABS: Potassium 4.1 mmol/L (3.5-5.1)
[2018-03-13] MEDS: D5 0.45 NS 1,000 ML IV SCH ×2 (03:24→07:20)
[2018-03-13 05:04] VITALS: BMI 28.4
[2018-03-13 05:44] LABS: Absolute Lymphocytes (CBC) 2.1 K/uL (0.7-4.9); Absolute Monocytes 0.6 K/uL (0.1-1.3); Absolute Neutrophil 3.2 K/uL (1.8-8.0); Basophils % 0.3 % (0-1.3); Eosinophils % 0.4 % (0-4.4); Hematocrit 36.2 % (36.0-45.0); Lymphocytes % 35.1 % (15.3-44.8); MCH 31.1 pg (27.0-35.0); MCV 92.3 fL (80-100); MPV 9.6 fL (7.6-11.3); RBC Red Blood Cell Count 3.93 M/uL (3.86-4.86)
[2018-03-13 05:45] LABS: Magnesium 1.9 mg/dL (1.8-2.4); Potassium 3.8 mmol/L (3.5-5.1)
[2018-03-13] MEDS ORDERED: KCL 20 MEQ/100 mL IVPB 20 MEQ/100 ML BAG IV SCH (06:00)
[2018-03-13] MEDS ORDERED: POTASSIUM CL SA 10 MEQ TAB PO ONE (07:22)
[2018-03-13 09:25] VITALS: O2SAT 98
[2018-03-13 13:12] VITALS: BP 101/59; TEMP 97.8
--- NOTE | 2018-03-13 13:55 | EKG ---
Test Date: 2018-03-12 Test Time: 14:26:19 Sql Bi Developer: DASHAWN MEASUREMENT RESULTS: Intervals: Rate: 107 OR: 132 QRSD: 78 QT: 334 QTc: 445 [place]: P: 38 OR: 132 QRS: -26 T: 26 INTERPRETIVE STATEMENTS: Sinus tachycardia Minimal voltage criteria for LVH, may be normal variant Borderline ECG Compared to ECG 07/02/2015 06:18:46 Left ventricular hypertrophy now present Sinus rhythm no longer present Sinus arrhythmia no longer present Electronically Signed On 03-13-18 13:52:12 CDT by Franck Brown
--- NOTE | 2018-03-13 15:43 | P.DS ---
Admission Date: 03/12/18 Discharge Date: 03/13/18 Disposition: ROUTINE DISCHARGE Discharge Condition: GOOD Reason for Admission: DKA - Problems (1) DKA (diabetic ketoacidoses) Onset Date: 09/11/17 Status: Acute Qualifiers: Diabetes mellitus type: type 1 Diabetes mellitus complication detail: without coma Qualified Code(s): E10.10 - Type 1 diabetes mellitus with ketoacidosis without coma Brief History of Present Illness: Patient is a 27-year-old female with past medical history of diabetes who was recently admitted to the hospital and February for DKA. Patient comes in with intractable nausea and vomiting with a blood sugar level of 426. Patient took 16 units with through her insulin pump repeat level was 230s and she took another 8 units. Patient has ketones strips and check treat urine which was positive for ketones. Patient denies any dysuria fever chills. Patient's pop is functioning properly. Patient does see endocrinology and has an appointment tomorrow afternoon at 2:00 p.m. in [place]. Patient came into the ER for further evaluation upon arrival her blood glucose level was 159 however her gap was elevated at 19 ABG showed pH of 7.24. Patient was given 1 L normal saline bolus x2 Patient was referred for admission for DKA. When seen in the ER the patient was awake alert oriented x3 not in any acute distress. Hospital Course: Patient is a 27-year-old female with past medical history of type 1 diabetes with insulin pump old came in with the DKA. Patient was started on insulin drip her anion gap was elevated at 19. Patient was given IV normal saline bolus times 3. Patient's condition improved she was no longer having any nausea or vomiting. Patient had improvement in her anion gap which closed. Patient initially had blood glucose in the for 0s at home and took 16 units and she checked her ketones in the urine which were positive. Patient did not have any malfunction of her insulin pump. Patient said to have appointment with rooms director today at 2:00 p.m.. Patient was taken off of insulin drip. She was placed back on the insulin pump her sugars remained stable. Her anion gap closed. She was no longer having any nausea or vomiting. Able to tolerate her diet. Patient was then cleared for discharge and sent home in a stable condition. Vital Signs/Physical Exam: Temp Pulse Resp BP Pulse Ox 97.8 F 83 17 101/59 L 99 03/13/18 08:00 03/13/18 12:00 03/13/18 12:00 03/13/18 10:00 03/13/18 10:00 General: Alert, In no apparent distress, Oriented x3 HEENT: Atraumatic, PERRLA, EOMI Neck: Supple, JVD not distended Respiratory: Clear to auscultation bilaterally, Normal air movement Cardiovascular: No edema, Normal pulses, Regular rate/rhythm, Normal S1 S2 Gastrointestinal: Normal bowel sounds, Soft and benign, Non-distended, No tenderness Musculoskeletal: No clubbing, No tenderness Integumentary: No rashes Neurological: Normal speech, Normal tone, Normal affect Laboratory Data at Discharge: WBC 5.9 K/uL (4.3-10.9) D 03/13/18 04:54 Hgb 12.2 g/dL (12.0-15.0) D 03/13/18 04:54 Hct 36.2 % (36.0-45.0) D 03/13/18 04:54 Plt Count 242 K/uL (152-406) D 03/13/18 04:54 Sodium 140 mmol/L (136-145) 03/13/18 04:54 Potassium 3.8 mmol/L (3.5-5.1) 03/13/18 04:54 BUN 5 mg/dL (7-18) L 03/13/18 04:54 Creatinine 1.00 mg/dL (0.55-1.3) 03/13/18 04:54 Glucose 192 mg/dL (74-106) H 03/13/18 04:54 Magnesium Cancelled 03/13/18 05:00 Home Medications: Insulin Aspart [Novolog*] 0 units IM SEECOM 01/09/15 Lurasidone HCl [Latuda] 40 mg PO BEDTIME 09/11/17 Vortioxetine Hydrobromide [Trintellix] 10 mg PO BEDTIME 03/12/18 Patient Discharge Instructions: f/up w PCP in 2-3 days. f/up w rooms director today at 2pm in [place] as scheduled. Return to ER for worsening condition Diet: ADA Activity: Ad rima Time spent managing pt's care (in minutes): 34
== END 2018-03-13 12:00 | disposition home or self-care (01) | DRG 639 ==
LOC: ER 13:18 → ERHOLD 17:40 → 3RD-ICU 19:55
PROVIDERS: ADMIT Family Medicine; ATTEND Family Medicine
DX: E10.10 Type 1 diabetes mellitus with ketoacidosis without coma (principal); F31.9 Bipolar disorder, unspecified; Z96.41 Presence of insulin pump (external) (internal); F17.200 Nicotine dependence, unspecified, uncomplicated; Z98.84 Bariatric surgery status
CPT/HCPCS: 36415; 71045; 80048; 81003; 82010; 82805; 82962; 83735; 83930; 84703; 85025; 87040; 93005; 96365; 96366; 96367; 96375; 99285; J1650; J2405; J7030

== ENCOUNTER 2018-08-04 02:47 | Inpatient (IN) | payer OTHER ==
[2018-08-04] MEDS ORDERED: NA CHLORIDE 0.9% 1,000 ML ONE ×3 (03:05→07:08)
[2018-08-04] MEDS ORDERED: ONDANSETRON 4 MG/2 ML VIAL ONE ×2 (03:05→14:29)
[2018-08-04 03:34] LABS: Absolute Monocytes 0.8 K/uL (0.1-1.3); Absolute Neutrophil 12.3 K/uL (1.8-8.0); Basophils % 0.3 % (0-1.3); Hematocrit 44.6 % (36.0-45.0); MCH 30.4 pg (27.0-35.0); MCV 96.4 fL (80-100); MPV 9.8 fL (7.6-11.3); Monocytes % 5.6 % (3.3-12.3); RBC Red Blood Cell Count 4.63 M/uL (3.86-4.86)
[2018-08-04 04:18] LABS: ALT/SGPT 14 U/L (12-78); AST/SGOT 8 U/L (15-37); Albumin 3.5 g/dL (3.4-5.0); Alkaline Phosphatase 132 U/L (45-117); BUN Blood Urea Nitrogen 17 mg/dL (7-18); Bilirubin Direct 0.2 mg/dL (0-0.2); Bilirubin Total 0.6 mg/dL (0.2-1.0); Lipase 35 U/L (73-393); Protein, Total 7.2 g/dL (6.4-8.2); Sodium Level 136 mmol/L (136-145)
[2018-08-04 04:29] LABS: Bicarbonate 9 mmol/L (21-32); Glucose Level 425 mg/dL (74-106)
--- NOTE | 2018-08-04 04:42 | EDPHYS ---
Physician Documentation [facility] Name: Teetee Hannah Age: 27 yrs Sex: Female : 1990 Arrival Date: 08/04/2018 Time: 02:47 Bed 6 Private MD: ED Physician Rigo Grier HPI: 08/04 05:06 This 27 yrs old Female presents to ER via Ambulatory with complaints of tw4 Vomiting, High Blood Sugar. 05:06 The patient presents to the emergency department with nausea, that is moderate, tw4 vomiting, 3 times since the onset of symptoms. Onset: The symptoms/episode began/occurred just prior to arrival, today. Possible causes: unknown. The symptoms are aggravated by nothing. The symptoms are alleviated by nothing. Associated signs and symptoms: The patient has no apparent associated signs or symptoms. Severity of symptoms: At their worst the symptoms were moderate in the emergency department the symptoms are unchanged. The patient has experienced similar episodes in the past, several times, and the symptoms today are exactly the same, to when the patient was apparently diagnosed with DKA. 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 - Social history:: Smoking status: Patient/guardian denies using tobacco. - Ebola Screening: : No symptoms or risks identified at this time. ROS: 05:06 Constitutional: Negative for fever, chills, and weight loss, Cardiovascular: Negative tw4 for chest pain, palpitations, and edema, Respiratory: Negative for shortness of breath, cough, wheezing, and pleuritic chest pain. 05:06 MS/Extremity: Negative for injury and deformity, Skin: Negative for injury, rash, and discoloration, Neuro: Negative for headache, weakness, numbness, tingling, and seizure. 05:06 Abdomen/GI: Positive for nausea and vomiting, nausea, vomiting, and diarrhea, nausea, vomiting, Negative for abdominal pain, constipation, abdominal cramps, abdominal distension, black/tarry stool, rectal pain. 05:06 Endocrine: Exam: 05:06 Head/Face: Normocephalic, atraumatic. Chest/axilla: Normal chest wall appearance and tw4 motion. Nontender with no deformity. No lesions are appreciated. Cardiovascular: Regular rate and rhythm with a normal S1 and S2. No gallops, murmurs, or rubs. Normal PMI, no JVD. No pulse deficits. Respiratory: Lungs have equal breath sounds bilaterally, clear to auscultation and percussion. No rales, rhonchi or wheezes noted. No increased work of breathing, no retractions or nasal flaring. Skin: Warm, dry with normal turgor. Normal color with no rashes, no lesions, and no evidence of cellulitis. MS/ Extremity: Pulses equal, no cyanosis. Neurovascular intact. Full, normal range of motion. Neuro: Awake and alert, GCS 15, oriented to person, place, time, and situation. Cranial nerves II-XII grossly intact. Motor strength 5/5 in all extremities. Sensory grossly intact. Cerebellar exam normal. Normal gait. 05:06 Constitutional: The patient appears in obvious distress, mildly distressed. 05:06 Constitutional: The patient appears pale. 05:06 Abdomen/GI: Inspection: abdomen appears normal, Bowel sounds: diminished, Palpation: mild abdominal tenderness, in the epigastric area. Vital Signs: 03:03 BP 112 / 78; Pulse 114; Resp 18; Temp 97.5; Pulse Ox 100% on R/A; Weight 83.01 kg; aa1 Height 5 ft. 9 in. (175.26 cm); Pain 0/10; 03:30 BP 111 / 59; Pulse 121; Resp 25; Pulse Ox 100% ; rr5 03:50 BP 111 / 59; Pulse 120; Resp 20; Pulse Ox 100% on R/A; rr5 04:00 BP 107 / 57; Pulse 134; Resp 26; Pulse Ox 100% on R/A; rr5 04:30 BP 103 / 57; Pulse 124; Resp 28; Pulse Ox 100% ; rr5 05:00 BP 122 / 59; Pulse 135; Resp 22; Pulse Ox 100% ; rr5 06:00 BP 126 / 67; Pulse 118; Resp 23; Temp 98.5; Pulse Ox 100% ; rr5 07:00 BP 103 / 69; Pulse 126; Resp 22; Pulse Ox 100% ; rr5 07:15 BP 120 / 70; Pulse 124; Resp 19; Pulse Ox 96% ; sv 08:00 BP 104 / 57; Pulse 112 MON; Resp 20; Pulse Ox 99% on R/A; sv 03:03 Body Mass Index 27.02 (83.01 kg, 175.26 cm) aa1 08:00 Sinus tachycardia sv [place] Coma Score: 03:05 Eye Response: spontaneous(4). Verbal Response: oriented(5). Motor Response: obeys rr5 commands(6). Total: 15. 06:00 Eye Response: spontaneous(4). Verbal Response: oriented(5). Motor Response: obeys rr5 commands(6). Total: 15. MDM: 02:48 Patient medically screened. tw4 05:06 Differential diagnosis: Nonspecific abd pain, gastritis, cholecystitis, pancreatitis, tw4 appendicitis, diverticulitis, viral gastroenteritis, gastroenteritis. Data reviewed: vital signs, nurses notes. Data interpreted: Pulse oximetry: Interpretation: normal. Counseling: I had a detailed discussion with the patient and/or guardian regarding: the historical points, exam findings, and any diagnostic results supporting the discharge/admit diagnosis. Medication response: morphine partially relieved the patient's pain. Response to treatment: the patient's symptoms have mildly improved after treatment, and as a result, I will admit patient. Physician consultation: Dov Rodriguez MD regarding admission, to the ICU, and will see patient in inpatient room. 08/04 02:49 Order name: Basic Metabolic Panel; Complete Time: 04:38 tw4 08/04 04:38 Interpretation: Normal except: CRE 1.40; GLUC 425; CO2 9; K 6.0; GFR 45. tw4 08/04 02:49 Order name: CBC with Diff tw4 08/04 04:13 Interpretation: Normal except: WBC 14.2; MCV 96.4; MCHC 31.5; PLT 409; MAYELIN% 87.1; LYM% tw4 7.0; NEUT A 12.3. 08/04 02:49 Order name: Creatinine for Radiology; Complete Time: 04:29 tw4 08/04 04:29 Interpretation: Normal except: CRE 1.60; GFR 38. tw4 08/04 02:49 Order name: Hepatic Function; Complete Time: 04:38 tw4 08/04 02:49 Order name: Lipase; Complete Time: 04:38 tw4 08/04 02:49 Order name: Ketone, Serum; Complete Time: 04:38 tw4 08/04 04:12 Interpretation: Abnormal. tw4 08/04 03:57 Order name: Manual Differential EDMS 08/04 05:10 Order name: Urine Dipstick--Ancillary (enter results) ag4 08/04 05:10 Order name: Urine --Ancillary (enter results) ag4 08/04 05:40 Order name: Acetone Level EDMS 08/04 05:40 Order name: Acetone Level EDMS 08/04 05:40 Order name: Acetone Level EDMS 08/04 05:40 Order name: Basic Metabolic Panel EDMS 08/04 05:40 Order name: Basic Metabolic Panel EDMS 08/04 05:40 Order name: Basic Metabolic Panel EDMS 08/04 05:40 Order name: CBC with Automated Diff EDMS 08/04 05:40 Order name: CBC with Automated Diff EDMS 08/04 05:40 Order name: CBC with Automated Diff EDMS 08/04 05:40 Order name: Magnesium EDMS 08/04 05:40 Order name: Magnesium EDMS 08/04 05:40 Order name: Magnesium EDMS 08/04 05:40 Order name: Phosphorus EDMS 08/04 05:40 Order name: Phosphorus EDMS 08/04 05:40 Order name: Phosphorus EDMS 08/04 05:41 Order name: Basic Metabolic Panel EDMS 08/04 05:41 Order name: Basic Metabolic Panel EDMS 08/04 05:41 Order name: Magnesium EDMS 08/04 05:41 Order name: Phosphorus EDMS 08/04 07:10 Order name: Basic Metabolic Panel EDMS 08/04 08:01 Order name: Acetone Level EDMS 08/04 02:49 Order name: IV Saline Lock; Complete Time: 03:17 tw4 08/04 02:49 Order name: Labs collected and sent; Complete Time: 03:17 tw4 08/04 05:40 Order name: CONS Pharmacy Consult EDMS 08/04 05:40 Order name: NPO EDMS 08/04 08:10 Order name: Glucose, Ancillary Testing EDMS 08/04 08:10 Order name: Glucose, Ancillary Testing EDMS 08/04 08:10 Order name: Glucose, Ancillary Testing EDMS 08/04 08:10 Order name: Glucose, Ancillary Testing EDMS 08/04 08:10 Order name: Glucose, Ancillary Testing EDMS 08/04 09:16 Order name: Basic Metabolic Panel EDMS 08/04 11:00 Order name: Glucose, Ancillary Testing EDMS 08/04 11:00 Order name: Glucose, Ancillary Testing EDMS 08/04 11:00 Order name: Glucose, Ancillary Testing EDMS 08/04 11:59 Order name: Basic Metabolic Panel EDMS 08/04 11:59 Order name: Phosphorus EDMS 08/04 11:59 Order name: Magnesium EDMS 08/04 15:10 Order name: Glucose, Ancillary Testing EDMS Administered Medications: 03:10 Drug: NS 0.9% 1000 ml Route: IV; Rate: 1 bolus; Site: right antecubital; rr5 04:10 Follow up: Response: No adverse reaction; IV Status: Completed infusion; IV Intake: rr5 1000ml 04:51 Follow up: Response: No adverse reaction; IV Status: Completed infusion; IV Intake: rr5 1000ml 03:12 Drug: Zofran 4 mg Route: IVP; Site: right antecubital; rr5 05:39 Follow up: Response: No adverse reaction rr5 04:50 Drug: Insulin Regular Human 10 units {Co-Signature: rr5 (Jose Pa RN).} Route: cc3 IVP; Site: right antecubital; 06:14 Follow up: Response: No adverse reaction; Blood sugar is lowered cc3 04:55 Drug: morphine 2 mg Route: IVP; Site: right antecubital; cc3 05:39 Follow up: Response: No adverse reaction rr5 04:55 Drug: NS 0.9% 1000 ml Route: IV; Rate: 1 bolus; Site: right antecubital; cc3 06:12 Follow up: Response: No adverse reaction; IV Status: Completed infusion; IV Intake: cc3 1000ml 05:00 Drug: Insulin Drip - (Insulin Regular Human 100 units, NS 0.9% 100 ml) {Co-Signature: rr5 aa1 (Zulma Ramos RN).} {Note: started at 8.3ml/hr cbg-433mg/dl.} Route: IV; Rate: calculated rate; Site: right antecubital; 06:00 Follow up: IV Status: Infusion continued; IV Intake: 8.3ml rr5 07:00 Follow up: IV Status: Infusion continued; IV Intake: 8.3ml rr5 08:00 Follow up: Response: No adverse reaction; Rate change 4.1 calculated rate sv 07:00 Drug: NS 0.9% 1000 ml Route: IV; Rate: 1 bolus; Site: right antecubital; rr5 08:05 Follow up: Response: No adverse reaction; IV Status: Completed infusion; IV Intake: sv 1000ml 08:05 Drug: D5-1/2 NS 1000 ml Route: IV; Rate: 200 ml/hr; Site: right antecubital; sv 15:17 Follow up: Response: No adverse reaction; IV Status: Infusion continued upon admission sv Point of Care Testing: Blood Glucose: 03:05 Blood Glucose: 364 mg/dL; aa1 05:00 Blood Glucose: 433 mg/dL; rr5 06:00 Blood Glucose: 344 mg/dL; rr5 07:00 Blood Glucose: 271 mg/dL; rr5 08:00 Blood Glucose: 198 mg/dL; sv Ranges: Critical Glucose Levels:Adult <50 mg/dl or >400 mg/dl <40 mg/dl or >180 mg/dl Disposition: 08/04/18 04:41 Hospitalization ordered by Dov Rodriguez for Inpatient Admission. Preliminary diagnosis are Type 1 diabetes mellitus with ketoacidosis without coma, Hyperkalemia, Acute kidney failure, unspecified, Dehydration. - Bed requested for Intensive Care Unit. - Status is Inpatient Admission. sv - Condition is Serious. - Problem is new. - Symptoms are unchanged. UTI on Admission? No Critical care time excluding procedures: 05:51 Critical care time: Bedside Care: 20 minutes, Consultation: 10 minutes. Total time: 30 tw4 minutes Signatures: Dispatcher [employer] Negrita Merritt RN RN sv Woody, Diana, RN RN Zulma Ramos RN RN aa1 Rigo Grier MD MD tw4 Mariela Mcgee Charlene 3 Jose Pa RN RN rr5 Zulma Ramos RN aa1 Jose Pa RN rr5 Corrections: (The following items were deleted from the chart) 04:27 04:13 Abnormal. tw4 tw4 04:38 04:13 OrderId: [id number] PrecursorText: InterpretationText: tw4 tw4 07:26 04:41 Hospitalization Ordered by Dov Rodriguez MD for Inpatient Admission. Preliminary eb diagnosis is Type 1 diabetes mellitus with ketoacidosis without coma; Hyperkalemia; Acute kidney failure, unspecified; Dehydration. Bed requested for Intensive Care Unit. Status is Inpatient Admission. Condition is Serious. Problem is new. Symptoms are unchanged. UTI on Admission? No. tw4 13:41 07:26 08/04/2018 04:41 Hospitalization Ordered by Dov Rodriguez MD for Inpatient dw Admission. Preliminary diagnosis is Type 1 diabetes mellitus with ketoacidosis without coma; Hyperkalemia; Acute kidney failure, unspecified; Dehydration. Bed requested for [facility] ER HOLD. Status is Inpatient Admission. Condition is Serious. Problem is new. Symptoms are unchanged. UTI on Admission? No. eb 15:17 13:41 08/04/2018 04:41 Hospitalization Ordered by Dov Rodriguez MD for Inpatient sv Admission. Preliminary diagnosis is Type 1 diabetes mellitus with ketoacidosis without coma; Hyperkalemia; Acute kidney failure, unspecified; Dehydration. Bed requested for Intensive Care Unit. Status is Inpatient Admission. Condition is Serious. Problem is new. Symptoms are unchanged. UTI on Admission? No. dw
--- NOTE | 2018-08-04 04:42 | ER ---
Nurse's Notes [facility] Name: Teetee Hannah Age: 27 yrs Sex: Female : 1990 Arrival Date: 08/04/2018 Time: 02:47 Bed 6 Private MD: Diagnosis: Type 1 diabetes mellitus with ketoacidosis without coma;Hyperkalemia;Acute kidney failure, unspecified;Dehydration Presentation: 08/04 02:58 Presenting complaint: Patient states: she believes she may be in DKA. C/O N/V since aa1 last night and BGL of approx 400 around [place]. Transition of care: patient was not received from another setting of care. Onset of symptoms was August 04, 2018. Risk Assessment: Do you want to hurt yourself or someone else? Patient reports no desire to harm self or others. Initial Sepsis Screen: Does the patient meet any 2 criteria? HR > 90 bpm. Does the patient have a suspected source of infection? No. Patient's initial sepsis screen is negative. Care prior to arrival: None. 02:58 Method Of Arrival: Ambulatory aa1 02:58 Acuity: LO 2 aa1 Triage Assessment: 03:03 General: Appears in no apparent distress. comfortable, Behavior is calm, cooperative, aa1 appropriate for age. 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 - Social history:: Smoking status: Patient/guardian denies using tobacco. - Ebola Screening: : No symptoms or risks identified at this time. Screenin:30 Abuse screen: Denies threats or abuse. Denies injuries from another. Nutritional rr5 screening: No deficits noted. Tuberculosis screening: No symptoms or risk factors identified. Fall Risk IV access (20 points). Gait- Normal/Bed Rest/Wheelchair (0 pts). Assessment: 03:30 General: Appears in no apparent distress. uncomfortable, ill, Behavior is calm, rr5 cooperative, appropriate for age. Pain: Denies pain. Neuro: Level of Consciousness is awake, alert, obeys commands, Oriented to person, place, time, situation. Cardiovascular: Capillary refill < 3 seconds Patient's skin is warm and dry. Respiratory: Airway is patent Respiratory effort is even, unlabored, Respiratory pattern is regular, symmetrical. GI: Abdomen is round Reports nausea, vomiting, with insulin pump at right lower quadrant area. : No signs and/or symptoms were reported regarding the genitourinary system. EENT: No signs and/or symptoms were reported regarding the EENT system. Derm: No signs and/or symptoms reported regarding the dermatologic system. Musculoskeletal: No signs and/or symptoms reported regarding the musculoskeletal system. 03:50 Reassessment: Patient appears in no apparent distress at this time. asleep on bed. no rr5 complaints made. negative for vomiting. 04:40 Reassessment: Patient appears in no apparent distress at this time. review done glucose rr5 above normal on laboratory report ED provider with order made and carried out. 05:30 Reassessment: Patient appears in no apparent distress at this time. Patient and/or cc3 family updated on plan of care and expected duration. Pain level reassessed. Patient is alert, oriented x 3, equal unlabored respirations, skin warm/dry/pink. 06:44 Reassessment: Patient appears in no apparent distress at this time. Patient and/or cc3 family updated on plan of care and expected duration. Pain level reassessed. Patient is alert, oriented x 3, equal unlabored respirations, skin warm/dry/pink. 07:00 Reassessment: Patient appears in no apparent distress at this time. dr. garvey came rr5 examined the patient with order made and carried out. 07:45 General: Appears in no apparent distress. comfortable, Behavior is calm, cooperative, sv appropriate for age. Pain: Denies pain. Neuro: Level of Consciousness is awake, alert, obeys commands, Oriented to person, place, time, situation, Moves all extremities. Full function. Respiratory: Respiratory effort is even, unlabored, Respiratory pattern is regular, symmetrical. Derm: Skin is normal. 08:03 Reassessment: Repeat basic sent to the outside lab. sv Vital Signs: 03:03 BP 112 / 78; Pulse 114; Resp 18; Temp 97.5; Pulse Ox 100% on R/A; Weight 83.01 kg; aa1 Height 5 ft. 9 in. (175.26 cm); Pain 0/10; 03:30 BP 111 / 59; Pulse 121; Resp 25; Pulse Ox 100% ; rr5 03:50 BP 111 / 59; Pulse 120; Resp 20; Pulse Ox 100% on R/A; rr5 04:00 BP 107 / 57; Pulse 134; Resp 26; Pulse Ox 100% on R/A; rr5 04:30 BP 103 / 57; Pulse 124; Resp 28; Pulse Ox 100% ; rr5 05:00 BP 122 / 59; Pulse 135; Resp 22; Pulse Ox 100% ; rr5 06:00 BP 126 / 67; Pulse 118; Resp 23; Temp 98.5; Pulse Ox 100% ; rr5 07:00 BP 103 / 69; Pulse 126; Resp 22; Pulse Ox 100% ; rr5 07:15 BP 120 / 70; Pulse 124; Resp 19; Pulse Ox 96% ; sv 08:00 BP 104 / 57; Pulse 112 MON; Resp 20; Pulse Ox 99% on R/A; sv 03:03 Body Mass Index 27.02 (83.01 kg, 175.26 cm) aa1 08:00 Sinus tachycardia sv [place] Coma Score: 03:05 Eye Response: spontaneous(4). Verbal Response: oriented(5). Motor Response: obeys rr5 commands(6). Total: 15. 06:00 Eye Response: spontaneous(4). Verbal Response: oriented(5). Motor Response: obeys rr5 commands(6). Total: 15. ED Course: 02:47 Patient arrived in ED. ds1 02:48 Rigo Grier MD is Attending Physician. tw4 03:00 Triage completed. aa1 03:03 Arm band placed on right wrist. Patient placed in an exam room. aa1 03:10 Patient has correct armband on for positive identification. Bed in low position. Call rr5 light in reach. Pulse ox on. NIBP on. 03:10 Door closed. Lights dimmed. Warm blanket given. rr5 03:15 Jose Pa RN is Primary Nurse. rr5 03:15 Inserted saline lock: 20 gauge in right antecubital area, using aseptic technique. rr5 Blood collected. 04:29 Notified ED physician of a critical lab result(s). potassium of 6.0, Bicarbonate 9, bb Glucose 425. Dr Grier notified. 04:39 Dov Garvey MD is Hospitalizing Provider. tw4 06:30 Inserted saline lock: 20 gauge in left antecubital area, using aseptic technique. Blood cc3 collected. 07:31 Primary Nurse role handed off by Jose Pa, JOSE sv 07:31 Negrita Jacome RN is Primary Nurse. sv 09:00 No provider procedures requiring assistance completed. Patient admitted, IV remains in sv place. intact. Administered Medications: 03:10 Drug: NS 0.9% 1000 ml Route: IV; Rate: 1 bolus; Site: right antecubital; rr5 04:10 Follow up: Response: No adverse reaction; IV Status: Completed infusion; IV Intake: rr5 1000ml 04:51 Follow up: Response: No adverse reaction; IV Status: Completed infusion; IV Intake: rr5 1000ml 03:12 Drug: Zofran 4 mg Route: IVP; Site: right antecubital; rr5 05:39 Follow up: Response: No adverse reaction rr5 04:50 Drug: Insulin Regular Human 10 units {Co-Signature: rr5 (Jose Pa RN).} Route: cc3 IVP; Site: right antecubital; 06:14 Follow up: Response: No adverse reaction; Blood sugar is lowered cc3 04:55 Drug: morphine 2 mg Route: IVP; Site: right antecubital; cc3 05:39 Follow up: Response: No adverse reaction rr5 04:55 Drug: NS 0.9% 1000 ml Route: IV; Rate: 1 bolus; Site: right antecubital; cc3 06:12 Follow up: Response: No adverse reaction; IV Status: Completed infusion; IV Intake: cc3 1000ml 05:00 Drug: Insulin Drip - (Insulin Regular Human 100 units, NS 0.9% 100 ml) {Co-Signature: rr5 aa1 (Zulma Ramos RN).} {Note: started at 8.3ml/hr cbg-433mg/dl.} Route: IV; Rate: calculated rate; Site: right antecubital; 06:00 Follow up: IV Status: Infusion continued; IV Intake: 8.3ml rr5 07:00 Follow up: IV Status: Infusion continued; IV Intake: 8.3ml rr5 08:00 Follow up: Response: No adverse reaction; Rate change 4.1 calculated rate sv 07:00 Drug: NS 0.9% 1000 ml Route: IV; Rate: 1 bolus; Site: right antecubital; rr5 08:05 Follow up: Response: No adverse reaction; IV Status: Completed infusion; IV Intake: sv 1000ml 08:05 Drug: D5-1/2 NS 1000 ml Route: IV; Rate: 200 ml/hr; Site: right antecubital; sv 15:17 Follow up: Response: No adverse reaction; IV Status: Infusion continued upon admission sv Point of Care Testing: Blood Glucose: 03:05 Blood Glucose: 364 mg/dL; aa1 05:00 Blood Glucose: 433 mg/dL; rr5 06:00 Blood Glucose: 344 mg/dL; rr5 07:00 Blood Glucose: 271 mg/dL; rr5 08:00 Blood Glucose: 198 mg/dL; sv Ranges: Intake: 04:10 IV: 1000ml; Total: 1000ml. rr5 04:51 IV: 1000ml; Total: 2000ml. rr5 06:00 IV: 8ml; Total: 2008ml. rr5 06:12 IV: 1000ml; Total: 3008ml. cc3 07:00 IV: 8ml; Total: 3017ml. rr5 08:05 IV: 1000ml; Total: 4017ml. sv Outcome: 04:41 Decision to Hospitalize by Provider. tw4 09:00 Admitted to ER Hold. Please see [facility] for further documentation. sv 09:00 Condition: stable 09:00 Instructed on the need for admit. 15:17 Patient left the ED. sv Signatures: Negrita Jacome RN JOSE sv Zulma Ramos RN RN aa1 Clover Frausto ds1 Britt Small RN RN bb Rigo Grier MD MD tw4 Danielle Lunsford cc3 Jose Pa RN RN rr5 Zulma Ramos RN aa1 Jose Pa RN rr5
[2018-08-04] MEDS ORDERED: INSULIN -REGULAR HUMAN 50 UNIT/0.5 ML ML ONE ×2 (05:00→05:04)
[2018-08-04] MEDS ORDERED: MORPHINE 2 MG/ML SYR ONE (05:00)
[2018-08-04] MEDS ORDERED: NA CHLORIDE 0.9% 100 ML IV ONE (05:04)
[2018-08-04 05:11] LABS: Blood Morphology Comment NOT SEEN (NOT SEEN); Platelet Estimate ADEQ
[2018-08-04] MEDS ORDERED: ONDANSETRON 4 MG/2 ML VIAL IV PRN (05:34)
[2018-08-04] MEDS ORDERED: INSULIN -REGULAR HUMAN 100 UNIT in NA CHLORIDE 0.9% 100 ML IV SCH (05:45)
[2018-08-04] MEDS ORDERED: NACHLORIDE 0.45% 1,000 ML IV SCH (06:00)
[2018-08-04 07:06] LABS: Magnesium 2.2 mg/dL (1.8-2.4); Phosphorus 4.5 mg/dL (2.5-4.9); Potassium 5.4 mmol/L (3.5-5.1)
[2018-08-04] MEDS ORDERED: D5 0.45 NS 1,000 ML IV ONE ×2 (07:08→13:06)
[2018-08-04] MEDS: D5 0.45 NS 1,000 ML IV SCH ×2 (08:00→13:00)
[2018-08-04] MEDS: ENOXAPARIN 40 MG/0.4 ML SQ SCH (09:00)
[2018-08-04] MEDS ORDERED: ENOXAPARIN 40 MG/0.4 ML SQ ONE (09:06)
--- NOTE | 2018-08-04 09:08 | P.HP ---
Certification for Inpatient Patient admitted to: Inpatient With expected LOS: >2 Midnights Patient will require the following post-hospital care: None Practitioner: I am a practitioner with admitting privileges, knowledge of patient current condition, hospital course, and medical plan of care. Services: Services provided to patient in accordance with Admission requirements found in Title 42 Section 412.3 of the Code of Federal Regulations Patient History Date of Service: 08/04/18 Reason for admission: Diabetic ketoacidosis History of Present Illness: Patient is a 19-year-old female who is treatment insulin pump. Patient has a history of type 1 the 80s. She recently had a gastric sleeve and since then she has been having issues with episodes of diabetic ketoacidosis. She has had 4 episodes of DKA since the gastric sleeve. She has been following up with her director of operations for therapy and adjusting her insulin pump. They have been unsuccessful in keeping her blood sugars controlled. She has multiple episodes of hypoglycemia up. She will be admitted to the hospital for further evaluation. Allergies insulin lispro [From Humalog] Allergy (Verified 03/12/18 22:11) Hives/Rash Humalog U-100 Insul Allergy (Uncoded 03/12/18 20:56) Hives/Rash Humalog U-100 Insulin Allergy (Uncoded 03/12/18 20:56) Hives/Rash Home Medications: Insulin Aspart [Novolog*] 0 units IM SEECOM 01/09/15 Lurasidone HCl [Latuda] 40 mg PO BEDTIME 09/11/17 Vortioxetine Hydrobromide [Trintellix] 10 mg PO BEDTIME 03/12/18 - Past Medical/Surgical History Diabetic: Yes -: IDDM -: depression -: suicidal ideation - drug OD -: bipolar -: Gastric sleeve - Family History Mother Medical History: Other (see notes) Notes: ETOH abuse Brother Medical History: Other (see notes) Notes: Drug Addict Father Medical History: Heart disease, Hypertension - Social History Smoking Status: Never smoker Alcohol use: Yes CD- Drugs: No Caffeine use: No Review of Systems 10-point ROS is otherwise unremarkable Physical Examination - Vital Signs Temperature: 98 F Blood Pressure: 130/70 Pulse: 88 Respirations: 16 Pulse Ox (%): 98 - Physical Exam General: Alert, In no apparent distress, Oriented x3 HEENT: Atraumatic, PERRLA, Mucous membr. moist/pink, EOMI, Sclerae nonicteric Neck: Supple, 2+ carotid pulse no bruit, No LAD, Without JVD or thyroid abnormality Respiratory: Clear to auscultation bilaterally, Normal air movement Cardiovascular: Regular rate/rhythm, Normal S1 S2, No murmurs Gastrointestinal: Normal bowel sounds, Soft and benign, Non-distended, No tenderness, No rebound, No guarding Musculoskeletal: No clubbing, No swelling, No tenderness Integumentary: No rashes Neurological: Normal gait, Normal speech, Normal strength at 5/5 x4 extr, Normal tone, Sensation intact, Cranial nerves 3-12 intact, Normal affect Lymphatics: No axilla or inguinal lymphadenopathy - Studies Laboratory Data (last 24 hrs) 08/04/18 03:10: Creatinine 1.60 H 08/04/18 03:10: WBC 14.2 H, Hgb 14.1, Hct 44.6, Plt Count 409 H 08/04/18 03:10: Sodium 136, Potassium 6.0 H*, BUN 17, Creatinine 1.40 H, Glucose 425 H*, Total Bilirubin 0.6, AST 8 L, ALT 14, Alkaline Phosphatase 132 H , Lipase 35 L Assessment & Plan - Problems (Diagnosis) (1) DKA (diabetic ketoacidoses) Onset Date: 09/11/17 Current Visit: No Status: Acute Qualifiers: - Plan 1. IV hydration 2. Insulin drip 3. Accu-Cheks q1h 4. Measure anion gap every 2 hrs 5. Resume diet once anion gap is closed and will resume insulin pump 6. Diabetic education 7. GI and DVT prophylaxis Discharge Plan: Home Plan to discharge in: Greater than 2 days - Advance Directives Does patient have a Living Will: No Does patient have a Durable POA for Healthcare: No - Code Status/Comfort Care Code Status Assessed: Yes Code Status: Full Code Critical Care: No Time Spent Managing PTS Care (In Minutes): 50
[2018-08-04 09:14] LABS: Potassium 5.3 mmol/L (3.5-5.1)
[2018-08-04] MEDS ORDERED: INFLUENZA VACCINE (for 3y+) 0.5 ML DOSE IMVAC ONE (11:00)
[2018-08-04 11:56] LABS: Potassium 5.2 mmol/L (3.5-5.1)
[2018-08-04 12:52] LABS: Urine Blood TRACE (NEG); Urine Glucose 2+ (NEG); Urine Protein TRACE (NEG); Urine Specific Gravity 1.025 (1.005-1.030)
[2018-08-04 16:07] VITALS: O2SAT 100
[2018-08-04 16:16] LABS: BUN Blood Urea Nitrogen 10 mg/dL (7-18); Glucose Level 297 mg/dL (74-106); Potassium 4.7 mmol/L (3.5-5.1); Sodium Level 140 mmol/L (136-145)
[2018-08-04 16:25] LABS: Bicarbonate 12 mmol/L (21-32)
--- NOTE | 2018-08-04 16:37 | RAD REPORT ---
EXAM DESCRIPTION: RAD - Chest Single View - 08/04/2018 4:30 pm CLINICAL HISTORY: Sepsis protocol Chest pain. COMPARISON: Chest Single View dated 03/12/2018; Chest Single View dated 09/10/2017; CHEST SINGLE VIEW dated 07/02/2015; CHEST SINGLE VIEW dated 01/17/2015 FINDINGS: Portable technique limits examination quality. The lungs are grossly clear. The heart is normal in size. No displaced fractures. IMPRESSION: No acute intrathoracic process suspected.
[2018-08-04] MEDS ORDERED: PNEUMOCOCCAL VACCINE 0.5 ML IMVAC ONE (18:00)
[2018-08-04 20:25] LABS: BUN Blood Urea Nitrogen 9 mg/dL (7-18); Bicarbonate 18 mmol/L (21-32); Glucose Level 193 mg/dL (74-106); Potassium 4.6 mmol/L (3.5-5.1); Sodium Level 141 mmol/L (136-145)
[2018-08-04 23:44] LABS: BUN Blood Urea Nitrogen 8 mg/dL (7-18); Bicarbonate 18 mmol/L (21-32); Glucose Level 128 mg/dL (74-106); Potassium 4.2 mmol/L (3.5-5.1); Sodium Level 144 mmol/L (136-145)
[2018-08-05] MEDS: D5 0.45 NS 1,000 ML IV SCH ×2 (00:14→06:27)
[2018-08-05 04:11] LABS: BUN Blood Urea Nitrogen 7 mg/dL (7-18); Bicarbonate 21 mmol/L (21-32); Glucose Level 97 mg/dL (74-106); Potassium 3.9 mmol/L (3.5-5.1); Sodium Level 144 mmol/L (136-145)
[2018-08-05 07:33] VITALS: BMI 25.9
[2018-08-05 07:43] LABS: BUN Blood Urea Nitrogen 7 mg/dL (7-18); Bicarbonate 20 mmol/L (21-32); Glucose Level 140 mg/dL (74-106); Potassium 3.8 mmol/L (3.5-5.1); Sodium Level 142 mmol/L (136-145)
[2018-08-05 08:21] LABS: Magnesium 1.8 mg/dL (1.8-2.4); Phosphorus 2.8 mg/dL (2.5-4.9)
[2018-08-05] MEDS: ENOXAPARIN 40 MG/0.4 ML SQ SCH (08:37)
[2018-08-05] MEDS ORDERED: MAGNESIUM SULFATE 1 gm IVPB 1 GM/100 ML BAG IV ONE (08:45)
[2018-08-05] MEDS ORDERED: POTASSIUM 25 MEQ EFFERV TAB PO ONE (08:46)
[2018-08-05 12:28] LABS: Absolute Lymphocytes (CBC) 1.4 K/uL (0.7-4.9); Absolute Monocytes 0.6 K/uL (0.1-1.3); Absolute Neutrophil 9.3 K/uL (1.8-8.0); Basophils % 0.2 % (0-1.3); Eosinophils % 0.2 % (0-4.4); Lymphocytes % 12.1 % (15.3-44.8); MCH 30.4 pg (27.0-35.0); MCV 93.1 fL (80-100); MPV 9.8 fL (7.6-11.3); Monocytes % 5.4 % (3.3-12.3)
[2018-08-05 14:07] VITALS: BP 110/75
--- NOTE | 2018-08-05 14:30 | P.DS ---
Admission Date: 08/04/18 Discharge Date: 08/05/18 Primary Care Provider: [facility]-Negrita Rivero NP; Endocrine-Dr. Rodriguez; [facility] -Jimi Disposition: ROUTINE DISCHARGE Discharge Condition: GOOD Reason for Admission: Diabetic ketoacidosis Consultations: None Procedures: Chest x-ray: No pneumonia identified Medical problem list: Diabetic ketoacidosis with history of type 1 diabetes Bipolar disorder Brief History of Present Illness: 27-year-old female presented emergency room with diabetic ketoacidosis. Patient with type 1 diabetes. Patient uses insulin pump. Patient recently moved to a new location. Patient was without medication. Patient also reports a history of gastric bypass. Medications have been adjusted by Endocrinology for better control. Patient reported nausea, vomiting with labile blood sugars. Patient was admitted for treatment. Hospital Course: Patient presented with diabetic ketoacidosis. Patient with history of type 1 diabetes on insulin pump. Patient was treated in the hospital. Her anion gap closed. DKA resolved. At discharge she was placed back on her insulin pump at 1.6 units/hour. She will continue with this. She will decrease the rate at night by half. She will maintain blood sugars between 100-200. Patient plans to follow up with her construction economist here soon. Endocrinology has been recently adjusting her medication due to her recent gastric bypass and episodes of hypoglycemia. Patient will also continue with bolus insulin based on her oral intake. Recommendation is to follow up with Endocrinology this week to follow up this hospitalization and continue her care. Patient has bipolar disorder. She will continue with her medication including Trintellix 10 mg daily and Latuda 40 mg daily. Recommendation to follow up with psychiatry as directed. Vital Signs/Physical Exam: Temp Pulse Resp BP Pulse Ox 98.4 F 99 H 14 110/75 100 08/05/18 04:00 08/05/18 14:00 08/05/18 14:00 08/05/18 14:00 08/05/18 14:00 General: Alert, In no apparent distress, Oriented x3, Cooperative HEENT: Atraumatic, Mucous membr. moist/pink Neck: Supple Respiratory: Clear to auscultation bilaterally, Normal air movement Cardiovascular: Normal pulses, Regular rate/rhythm Gastrointestinal: Normal bowel sounds, Soft and benign, Non-distended, No tenderness, No masses, No rebound, No guarding Musculoskeletal: No erythema, No tenderness, No warmth Integumentary: No tenderness/swelling, No erythema, No warmth, No cyanosis Neurological: Normal speech, Normal strength at 5/5 x4 extr, Normal tone, Normal affect Lymphatics: No axilla or inguinal lymphadenopathy Laboratory Data at Discharge: WBC 11.3 K/uL (4.3-10.9) H D 08/05/18 10:58 Hgb 13.1 g/dL (12.0-15.0) 08/05/18 10:58 Hct 40.0 % (36.0-45.0) 08/05/18 10:58 Plt Count 322 K/uL (152-406) D 08/05/18 10:58 Sodium 142 mmol/L (136-145) 08/05/18 07:00 Potassium 3.8 mmol/L (3.5-5.1) 08/05/18 07:00 BUN 7 mg/dL (7-18) 08/05/18 07:00 Creatinine 0.90 mg/dL (0.55-1.3) 08/05/18 07:00 Glucose 140 mg/dL (74-106) H 08/05/18 07:00 Phosphorus 2.8 mg/dL (2.5-4.9) 08/05/18 07:00 Magnesium 1.8 mg/dL (1.8-2.4) 08/05/18 07:00 Total Bilirubin 0.6 mg/dL (0.2-1.0) 08/04/18 03:10 AST 8 U/L (15-37) L 08/04/18 03:10 ALT 14 U/L (12-78) 08/04/18 03:10 Alkaline Phosphatase 132 U/L (45-117) H 08/04/18 03:10 Lipase 35 U/L (73-393) L 08/04/18 03:10 Home Medications: Insulin Aspart [Novolog*] 0 units IM SEECOM 01/09/15 Lurasidone HCl [Latuda] 40 mg PO BEDTIME 09/11/17 Vortioxetine Hydrobromide [Trintellix] 10 mg PO BEDTIME 03/12/18 Patient Discharge Instructions: 1. Patient will need to follow up the PCP in 1 week to follow up this hospitalization. 2. Patient presented with diabetic ketoacidosis. Patient with history of type 1 diabetes on insulin pump. Patient was treated in the hospital. Her anion gap closed. DKA resolved. At discharge she was placed back on her insulin pump at 1.6 units/hour. She will continue with this. She will decrease the rate at night by half. She will maintain blood sugars between 100-200. Patient plans to follow up with her construction economist here soon. Endocrinology has been recently adjusting her medication due to her recent gastric bypass and episodes of hypoglycemia. Patient will also continue with bolus insulin based on her oral intake. Recommendation is to follow up with Endocrinology this week to follow up this hospitalization and continue her care. 3. Patient has bipolar disorder. She will continue with her medication including Trintellix 10 mg daily and Latuda 40 mg daily. Recommendation to follow up with psychiatry as directed. Diet: ADA Activity: Ad rima Time spent managing pt's care (in minutes): 55
[2018-08-05] MEDS ORDERED: INFLUENZA VACCINE (for 3y+) 0.5 ML DOSE IMVAC ONE (15:00)
[2018-08-05] MEDS ORDERED: PNEUMOCOCCAL VACCINE 0.5 ML IMVAC ONE (15:00)
[2018-08-05 15:19] VITALS: TEMP 97.7
== END 2018-08-05 15:05 | disposition home or self-care (01) | DRG 639 ==
LOC: ER 02:47 → ERHOLD 05:35 → 3RD-ICU 14:10
PROVIDERS: ADMIT Hospitalist; ATTEND Family Medicine
DX: E10.10 Type 1 diabetes mellitus with ketoacidosis without coma (principal); Z79.4 Long term (current) use of insulin; Z96.41 Presence of insulin pump (external) (internal); F31.9 Bipolar disorder, unspecified; Z98.84 Bariatric surgery status
CPT/HCPCS: 36415; 71045; 80048; 80076; 81003; 81025; 82010; 82962; 83605; 83690; 83735; 84100; 85025; 87040; 87086; 87088; 90670; 96361; 96365; 96375; 99285; G0008; G0009; J1650; J2270; J2405; J3475; J7030; Q2035

== ENCOUNTER 2019-09-23 18:19 | Emergency (ER) | payer OTHER ==
--- OUTSIDE RECORDS SUMMARY | 2019-09-23 18:22 | XMS REPORT | Summary of Care ---
:1990 Author Organization [facility] - Health Address [address] [place] [address] Care Team Providers Name Role Phone Negrita Rivero Primary Care Provider Encounter Details Date Type Department Care Team Description 04/28/2019 Orders Only [facility] Doctor Unassigned, No 301 [facility] Name [place] [id number] Allergies Active Allergy Reactions Severity Noted Date Comments Insulin Lispro Hives 01/15/2017 documented as of this encounter (statuses as of 04/28/2019) Medications Medication Sig Dispensed Refills Start Date End Date Status blood sugar Use as directed, 6-8 750 Strip 3 01/29/2017 Active diagnostic (ONETOUCH times daily, pt on VERIO) strip insulin pump, DX: E10.9 LATUDA 40 mg tablet Take 40 mg by mouth 0 07/28/2017 Active daily. flash glucose 1 Each daily. 1 Each 1 07/09/2018 Active scanning reader (FREESTYLE ROSS 10 DAY READER) MiscIndications: Type 1 diabetes mellitus without complication, Hypoglycemia, Insulin pump titration flash glucose sensor 1 Each every 10 9 Kit 3 07/09/2018 Active (FREESTYLE ROSS 10 (ten) days. DAY SENSOR) KitIndications: Type 1 diabetes mellitus without complication, Hypoglycemia, Insulin pump titration TRINTELLIX 10 mg Tab Take 1 tablet by 0 06/20/2018 Active mouth daily. Insulin [place], Use as directed. 1 Box 1 09/09/2018 Active Disposable, (KARISHMA Once daily PEN NEEDLE) 32 gauge x 5/32" NdleIndications: Type 1 diabetes mellitus with hyperglycemia Insulin Glargine inject 18 Units 33 mL 1 10/01/2018 Active (LANTUS SOLOSTAR under the skin 2 U-100 INSULIN) 100 (two) times daily. unit/mL (3 mL) injectionIndications : Type 1 diabetes mellitus with hyperglycemia insulin aspart RAPID Use up to 100 units 90 mL 1 02/17/2019 Active (NOVOLOG U-100 daily in insulin INSULIN ASPART) 100 pump. Novolog unit/mL medically necessary injectionIndications : Type 1 diabetes mellitus without complication, Insulin pump titration glucagon (GLUCAGON 1 mg by 3 Each 1 02/17/2019 Active EMERGENCY KIT, Intramuscular route HUMAN,) 1 mg as needed injectionIndications (Hypoglycemia). 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 documented as of this encounter Last Filed Vital Signs Not on filedocumented in this encounter Plan of Treatment Date Type Specialty Care Team Description 04/28/2019 Office Visit Endocrinology Diabetes & Harris, MD [facility] [address] [place] [address] [phone] Health Maintenance Due Date Last Done Comments PNEUMOCOCCAL 0-64 YEARS COMBINED 1995 SERIES (1 of 1 - PPSV23) EYE EXAM 1999 LDL-C 1999 URINE MICROALBUMIN 1999 VARICELLA VACCINES (1 of 2 - 13+ 2002 2-dose series) DTaP,Tdap,and Td Vaccines (1 - 2008 Tdap) PAP SMEAR 2010 INFLUENZA VACCINE (#1) 2019 HgA1C 05/14/2019 11/11/2018, 07/09/2018, 07/30/2017, Additional history exists CREATININE (SERUM) 09/09/2019 09/09/2018, 09/16/2017, 07/30/2017 FOOT EXAM 09/09/2019 09/09/2018, 09/09/2018, 08/25/2018, Additional history exists documented as of this encounter Procedures Procedure Name Priority Date/Time Associated Diagnosis Comments NO SHOW OR MISSED Routine 04/28/2019 2:55 PM APPOINTMENT POLICY CDT ACKNOWLEDGEMENT documented in this encounter Results Not on filedocumented in this encounter Insurance Payer Benefit Plan / Group Subscriber ID Effective Dates Phone Address Type CIGDIVYA CIGDIVYA II [id number] 2017-Present HMO/PPO/POS documented as of this encounter
--- OUTSIDE RECORDS SUMMARY | 2019-09-23 18:22 | XMS REPORT | Summary of Care ---
:1990 Author Organization [facility] - Health Address [address] [place] [address] Care Team Providers Name Role Phone Negrita Rivero Primary Care Provider Encounter Details Date Type Department Care Team Description 03/20/2019 Orders Only [facility] Doctor Unassigned, No 301 [facility] Name [place] [phone] Allergies Active Allergy Reactions Severity Noted Date Comments Insulin Lispro Hives 01/15/2017 documented as of this encounter (statuses as of 03/26/2019) Medications Medication Sig Dispensed Refills Start Date [...] by 0 06/20/2018 Active mouth daily. Insulin [place], Use as directed. 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 Counseling for insulin pump 01/15/2017 documented as of this encounter (statuses as of 03/26/2019) Social History Tobacco Use Types Packs/Day Years [...] Diabetes & Harris, MD [facility] [address] [place] [address] [phone] Health Maintenance Due Date Last Done Comments PNEUMOCOCCAL 0-64 YEARS COMBINED 1995 SERIES (1 of 1 - PPSV23) EYE EXAM 1999 LDL-C 1999 URINE MICROALBUMIN 1999 VARICELLA VACCINES (1 of 2 - 13+ 2002 2-dose series) DTaP,Tdap,and Td Vaccines (1 - 2008 Tdap) PAP SMEAR 2010 INFLUENZA VACCINE 04/26/2019 HgA1C 05/14/2019 11/11/2018, 07/09/2018, 07/30/2017, Additional history exists CREATININE (SERUM) 09/09/2019 09/09/2018, 09/16/2017, 07/30/2017 FOOT EXAM 09/09/2019 09/09/2018, 09/09/2018, 08/25/2018, Additional history exists documented as of this encounter Procedures Procedure Name Priority Date/Time Associated Diagnosis Comments INSURANCE CORRESPONDENCE Routine 03/20/2019 12:01 AM CDT documented in this encounter Results Not on filedocumented in this encounter Insurance Payer Benefit Plan / Group Subscriber ID Effective Dates Phone Address Type MAEGAN ISSA II [id number] 2017-Present HMO/PPO/POS documented as of this encounter
--- OUTSIDE RECORDS SUMMARY | 2019-09-23 18:22 | XMS REPORT ---
:1990 Author Organization [facility] Address [address] [place] [address] Dr. Petersen [address] [place] [address] Care Team Providers Name Role Phone Unavailable Unavailable Unavailable Problems This patient has no known problems. Allergies, Adverse Reactions, Alerts This patient has no known allergies or adverse reactions. Medications This patient has no known medications.
--- OUTSIDE RECORDS SUMMARY | 2019-09-23 18:22 | XMS REPORT | Summary of Care ---
:1990 Author Organization [facility] Address [address] [place] [address] Care Team Providers Name Role Phone RiveroJan montes de ocahanie Rosemary Primary Care Provider Reason for Visit Reason Comments Talk To Nurse Encounter Details Date Type Department Care Team Description 03/17/2019 Telephone [facility] Endocrinology- Christina Harris MD Talk To Nurse [address] Professional Office [address] [phone] [place] [address] Dr. [address] [place] [address] Allergies Active Allergy Reactions Severity Noted Date Comments Insulin Lispro Hives 01/15/2017 documented as of this encounter (statuses as of 03/24/2019) Medications Medication Sig Dispensed Refills Start Date End Date Status blood sugar Use as directed, 6-8 750 Strip 3 01/29/2017 Active diagnostic (ONETOUCH times daily, pt on VERIO) strip insulin pump, DX: E10.9 LATUDA 40 mg tablet Take 40 mg by mouth 0 07/28/2017 Active daily. flash glucose 1 Each daily. 1 Each 1 07/09/2018 Active scanning reader ([place]STYLE ROSS 10 DAY READER) MiscIndications: Type 1 diabetes mellitus without complication, Hypoglycemia, Insulin pump titration flash glucose sensor 1 Each every 10 9 Kit 3 07/09/2018 Active (FREESTYLE ROSS 10 (ten) days. DAY SENSOR) KitIndications: Type 1 diabetes mellitus without complication, Hypoglycemia, Insulin pump titration TRINTELLIX 10 mg Tab Take 1 tablet by 0 06/20/2018 Active mouth daily. Insulin [place], Use as directed. 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
--- OUTSIDE RECORDS SUMMARY | 2019-09-23 18:22 | XMS REPORT | Summary of Care ---
:1990 Author Organization [facility] [[email or web address]] - Health Address [address] [place] [address] Care Team Providers Name Role Phone Negrita Rivero Primary Care Provider Encounter Details Date Type Department Care Team Description 04/03/2019 Orders Only [facility] [[email or web address]] Doctor Unassigned, No 301 [facility] Name [place] [phone] Allergies Active Allergy Reactions Severity Noted Date Comments Insulin Lispro Hives 01/15/2017 documented as of this encounter (statuses as of 04/19/2019) Medications Medication Sig Dispensed Refills Start Date [...] by 0 06/20/2018 Active mouth daily. Insulin [place], Use as directed. 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 Counseling for insulin pump 01/15/2017 documented as of this encounter (statuses as of 04/19/2019) Social History Tobacco Use Types Packs/Day Years [...] Diabetes & Harris, MD [facility] [address] [place] [address] [phone] Health Maintenance Due Date Last Done Comments PNEUMOCOCCAL 0-64 YEARS COMBINED 1995 SERIES (1 of 1 - PPSV23) EYE EXAM 1999 LDL-C 1999 URINE MICROALBUMIN 1999 VARICELLA VACCINES (1 of 2 - 13+ 2002 2-dose series) DTaP,Tdap,and Td Vaccines (1 - 2008 Tdap) PAP SMEAR 2010 INFLUENZA VACCINE (Retired 04/26/2019 version) HgA1C 05/14/2019 11/11/2018, 07/09/2018, 07/30/2017, Additional history exists CREATININE (SERUM) 09/09/2019 09/09/2018, 09/16/2017, 07/30/2017 FOOT EXAM 09/09/2019 09/09/2018, 09/09/2018, 08/25/2018, Additional history exists documented as of this encounter Procedures Procedure Name Priority Date/Time Associated Diagnosis Comments DME/SUPPLY JUSTIFICATION Routine 04/03/2019 12:01 AM CDT documented in this encounter Results Not on filedocumented in this encounter Insurance Payer Benefit Plan / Group Subscriber ID Effective Dates Phone Address Type MAEGAN ISSA II [id number] 2017-Present HMO/PPO/POS documented as of this encounter
--- OUTSIDE RECORDS SUMMARY | 2019-09-23 18:23 | XMS REPORT | Summary of Care ---
:1990 Author Organization [facility] Address [address] [place] [id number] Care Team Providers Name Role Phone RiveroJan fairNegrita A Primary Care Provider Reason for Visit Reason Comments Diabetes Mellitus I Follow-up Encounter Details Date Type Department Care Team Description 04[facility] 1 diabetes mellitus with hyperglycemia (Primary Dx); Endocrinology- [facility] Proliferative diabetic retinopathy of both eyes associated with type 1 diabetes mellitus, unspecified proliferative retinopathy type; [facility] Hypoglycemia; Professional Office [place], [place] Insulin pump titration Building [address] [place] [address] [address] [place], [place] (Fax) [phone] Allergies Active Allergy Reactions Severity Noted [...] by 0 06/20/2018 Active mouth daily. Insulin [place], Use as directed. 1 Box 1 09/09/2018 [...] of this encounter Last Filed Vital Signs Vital Sign Reading Time Taken Comments Blood Pressure 126/87 04/28/2019 3:10 PM CDT Pulse 105 04/28/2019 3:10 PM CDT Temperature - - Respiratory Rate 18 04/28/2019 3:10 PM CDT Oxygen Saturation - - Inhaled Oxygen Concentration - - Weight 85.7 kg (189 lb) 04/28/2019 3:10 PM CDT Height 175.3 cm (5' 9") 04/28/2019 3:10 PM CDT Body Mass Index 27.91 04/28/2019 3:10 PM CDT documented in this encounter Patient Instructions Patient InstructionsChristina Harris MD - 04/28/2019 3:00 PM CDTChange infusion set every 3 days Enter carbohydrate amount with each meal documented in this encounter Progress Notes Christina Harris MD - 04/28/2019 3:00 PM CDT chief complaint: Type 1 diabetes mellitus- follow up HPI Patient is a 28 year old /White female who is here today for Diabetes Mellitus Type 1. Initial visit: Type 1 diabetes mellitus at age 2. Patient has been on various pumps, [place] when 16 y/o, Medtronic, Omnipod ( most recent- was too big)- H/o DKA's in past. PHUC AB negative, C peptide undetectable Initial visit: Toujeo 80 units daily and Novolog based on ICR 1:10 gram. Patient restarted insulin pump 10/02/2018 ( Tandem with DEXCOM- download reviewed. GAYLE was in 10/2018 with A1C at 7.8. Reports compliance with pump/CGM most time except suspending pump during sleep. She also entering less carbs with concerns for hypoglycemia after bolus Patient Brought glucose log 2-4 times daily plus CGM. Average glucose at 190+/-88 Hypoglycemia early AM about 4% of time Diet: Changes as patient works night shifts 5 PM- 5 am ( eats 11 PM meal) alternating with 5am-5PM. Normal IGF-1 and random cortisol. Saliva and urine cortisol ordered in past however patient did not complete 09/2017: Gastric sleeve in [place]. Lost about 90 Lb DIABETIC HEALTH MAINTENANCE Last Ophthalmology visit was 03/2019, + retinopathy, [facility] Patient on CARLOS/ARB therapy - No Patient on ASA therapy - No. Patient on Statin/Fibrate therapy - No. Last flu shot: Refused Patient instructed about daily feet exams, last sensation exam was 06/2018 Patient has received Nutrition/Diet/Diabetes Education on 12/2018 HISTORY Past Medical History: Diagnosis Date Depression DKA (diabetic ketoacidoses) Type 1 diabetes mellitus Past Surgical History: Procedure Laterality Date LAPAROSCOPIC GASTRIC SLEEVE (SHX) 09/2017 OTHER Family History Problem Relation Age of Onset Diabetes Father type 2 diabetes Social History Socioeconomic History Marital status: Spouse name: Not on file Number of children: Not on file Years of education: Not on file Highest education level: Not on file Occupational History Not on file Social Needs Financial resource strain: Not on file Food insecurity: Worry: Not on file Inability: Not on file Transportation needs: Medical: Not on file Non-medical: Not on file Tobacco Use Smoking status: Never Smoker Smokeless tobacco: Never Used Substance and Sexual Activity Alcohol use: Not on file Drug use: Not on file Sexual activity: Not on file Lifestyle Physical activity: Days per week: Not on file Minutes per session: Not on file Stress: Not on file Relationships Social connections: Talks on phone: Not on file Gets together: Not on file Attends zoroastrian service: Not on file Active member of club or organization: Not on file Attends meetings of clubs or organizations: Not on file Relationship status: Not on file Intimate partner violence: Fear of current or ex partner: Not on file Emotionally abused: Not on file Physically abused: Not on file Forced sexual activity: Not on file Other Topics Concern Not on file Social History Narrative Not on file REVIEW OF SYSTEMS Constitutional: denies weight change, denies fatigue and hair loss Eyes: +blurry vision, denies diplopia and denies pain. Neck: denies pain, denies swollen glands Cardiovascular: denies chest pain , denies irregular pulse and denies palpitations. Respiratory: denies dyspnea on exertion and denies shortness of breath. Gastrointestinal: denies abdominal pain, denies constipation and denies diarrhea. Genitourinary: denies burning and denies dysuria. Musculoskeletal: denies back pain, denies muscle pain and denies weakness. Skin: denies dry skin and denies hair changes. Neuro: denies numbness , denies tingling and denies tremor. Psych: negative. Endocrine: denies goiter, denies hair loss, denies intolerance to cold, denies intolerance to heat, denies polydipsia, denies polyphagia and denies polyuria. PHYSICAL EXAM No results found for: POCGLU CREATININE-Q (mg/dL) Date Value 09/09/2018 0.81 POCT HBA1C (%) Date Value 11/11/2018 7.7 (A) 07/09/2018 8.7 (A) BP 126/87 | Pulse 105 | Resp 18 | Ht 5' 9" (1.753 m) | Wt 189 lb (85.7 kg) | BMI 27.91 kg/m General: alert, oriented times three, no apparent distress, appearing age appropriate. Skin: skin color and turgor are normal Head: normocephalic, no masses, lesions, tenderness or abnormalities. Eyes: anicteric sclera, pupils are equally round and reactive to light. Neck: no acanthosis nigricans Thyroid: normal size and consistency to palaption Lungs: good diaphragmatic excursion, lungs clear to auscultation bilaterally. Heart: regular rate and rhythm, no murmurs, gallops or rubs. Abdomen: abdomen soft, non-tender, normal active bowel sounds, Neuro: unremarkable without focal findings. Extremities/Musculoskeletal: no cyanosis, no edema . 11/2016 A1C 11.2 TC 161, TG 105, HDL 43, LDL 97 TSH 1.87 CMP OK B 12 normal Microalb negative Component Latest Ref Rng & Units 07/30/2017 07/30/2017 12:03 PM 12:03 PM GLUTAMIC ACID DECARBOXYLASE 65 AB-Q <5 IU/mL <5 C-PEPTIDE-Q 0.80 - 3.85 ng/mL <0.10 (L) Component Latest Ref Rng & Units 07/30/2017 07/30/2017 07/30/2017 12:03 PM 12:03 PM 12:03 PM IGF I, ECL-Q 63 - 373 ng/mL 127 Z SCORE (FEMALE)-Q -2.0 - 2 SD -0.6 TSH, 3RD GENERATION-Q mIU/L T-4, FREE-Q 0.8 - 1.8 ng/dL THYROID PEROXIDASE$ANTIBODIES-Q <9 IU/mL <1 CORTISOL, P.M.-Q mcg/dL 13.6 Component Latest Ref Rng & Units 07/30/2017 07/30/2017 12:03 PM 12:03 PM IGF I, ECL-Q 63 - 373 ng/mL Z SCORE (FEMALE)-Q -2.0 - 2 SD TSH, 3RD GENERATION-Q mIU/L 1.58 T-4, FREE-Q 0.8 - 1.8 ng/dL 1.2 THYROID PEROXIDASE$ANTIBODIES-Q <9 IU/mL Labs in 07/2018 Received WBC and neutrophils high + urine and serum ketones No BMP suggesting acidosis available Outside lab 03/2019 A1C=6.6 CMP/CBC and UA was normal GE=771/TG=50/HDL=73/LDL=67 ASSESSMENT Type 1 diabetes mellitus without complication (primary encounter diagnosis) Hypoglycemia Insulin pump titration -A1C (target=6-7%): 7.7 (3/)-->6.6(8/) improved from previous -glucose range: CGM AVG BG 293+/- 76 BG readings 3.2/day sensor AVG 191+/88 Wear duration 13/14 days % time CGM active 93% Glucose stat very high 0% high 54% in Target range 40% low 5% very low 1% I spent 30 minutes to download and review CGM with patient - hypoglycemia in early AM -complication: retinopathy -diet: low carbs per patient -exercise: active Plan - reinterated compliance with pump/CGM -urged compliance with diet/exercise -Pump downloaded AVG BG 293+/- 76 AVG BG reading 3.2 /day AVG daily carbs 36+/- 37 AVg daily insulin 51.9+/-10 AVg basal 28.8U 55% AVg bolus 23.1U 45% current basal setting 0:00 1.4 6:00 1.5 bolus CHO 0:00 5.0 sensitivity 30 active time 4 hr target 0:00 120-120 with hyperglycemia in 6am-12pm New basal setting 0:00 1.3 6:00 1.7 12:00 1.5 entering less carbs with concerns for hypoglycemia after bolus New bolus CHO 0:00 10 Proliferative diabetic retinopathy of both eyes associated with type 1 diabetes mellitus, unspecified proliferative retinopathy type New finding this month She has follow up with ophthalmology Hypoglycemia Comment:Prevention and treatment discussed Plan: Continue glucagon (GLUCAGON EMERGENCY KIT, HUMAN,) 1 mg injection Thuy Downs RN - 04/28/2019 3:00 PM CDT Teetee Hannah is a 28 year old female seen for a follow up visit for diabetes; Patient Active Problem List Diagnosis Type 1 diabetes mellitus without complication Blurry vision, bilateral Thyromegaly Cushingoid facies Counseling for insulin pump Insulin pump titration Hypoglycemia Current Outpatient Medications on File Prior to Visit Medication Sig Dispense Refill glucagon (GLUCAGON EMERGENCY KIT, HUMAN,) 1 mg injection 1 mg by Intramuscular route as needed (Hypoglycemia). 3 Each 1 insulin aspart RAPID (NOVOLOG U-100 INSULIN ASPART) 100 unit/mL injection Use up to 100 units daily in insulin pump. Novolog medically necessary 90 mL 1 Insulin Glargine (LANTUS SOLOSTAR U-100 INSULIN) 100 unit/mL (3 mL) injection inject 18 Units under the skin 2 (two) times daily. 33 mL 1 Insulin [place], Disposable, (KARISHMA PEN NEEDLE) 32 gauge x 5/32" Ndle Use as directed. Once daily1 Box 1 TRINTELLIX 10 mg Tab Take 1 tablet by mouth daily. 0 flash glucose scanning reader (FREESTYLE ROSS 10 DAY READER) Misc 1 Each daily. 1 Each 1 flash glucose sensor (FREESTYLE ROSS 10 DAY SENSOR) Kit 1 Each every 10 ( ten) days. 9 Kit 3 LATUDA 40 mg tablet Take 40 mg by mouth daily. blood sugar diagnostic (ONETOUCH VERIO) strip Use as directed, 6-8 times daily, pt on insulin pump, DX: E10.9 750 Strip 3 No current facility-administered medications on file prior to visit. Level of pain is zero Location of pain n/a Appearance: healthy,alert,cooperative. This patient is accompanied in the office by her self. Medications and allergies reviewed with patient by JOSE Ng. Patient will demonstrate three measures of preventative foot care: avoid going shoeless, daily cleaning and check, proper care of toe nails and proper foot wear. Met documented in this encounter Plan of Treatment Date Type Specialty Care Team Description 09/08/2019 Office Visit Endocrinology Diabetes & Harris, MD [facility] [address] [place] [address] Health Maintenance Due Date Last Done Comments [...] Results Not on filedocumented in this encounter Visit Diagnoses Diagnosis Type 1 diabetes mellitus with hyperglycemia - Primary Type I (juvenile type) diabetes mellitus without mention of complication, not stated as uncontrolled Proliferative diabetic retinopathy of both eyes associated with type 1 diabetes mellitus, unspecified proliferative retinopathy type Hypoglycemia Hypoglycemia, unspecified Insulin pump titration Fitting and adjustment of insulin pump documented in this encounter documented as of this encounter
--- OUTSIDE RECORDS SUMMARY | 2019-09-23 18:23 | XMS REPORT | Summary of Care ---
:1990 Author Organization [facility] Address [address] [place] [id number] Care Team Providers Name Role Phone RiveroJan fairNegrita A Primary Care Provider Reason for Visit Reason Comments Diabetes Mellitus I Follow-up Encounter Details Date Type Department Care Team Description 04/28[facility] 1 diabetes mellitus with hyperglycemia (Primary Dx); [facility]- [facility] Proliferative diabetic retinopathy of both eyes associated with type 1 diabetes mellitus, unspecified proliferative retinopathy type; [facility] Hypoglycemia; Professional Office [place], [place] Insulin pump titration Building [address] [place] [address] [address] [place], [place] (Fax) [phone] Allergies Active Allergy Reactions [...] by 0 06/20/2018 Active mouth daily. Insulin [place], Use as directed. 1 Box 1 09/09/2018 [...] 3. Patient has been on various pumps, [place] when 16 y/o, Medtronic, Omnipod ( most [...] did not complete 09/2017: Gastric sleeve in [place]. Lost about 90 Lb DIABETIC HEALTH MAINTENANCE [...] file Gets together: Not on file Attends [employer] service: Not on file Active member of [...] 03/2019 A1C=6.6 CMP/CBC and UA was normal XO=888/TG=50/HDL=73/LDL=67 ASSESSMENT Type 1 diabetes mellitus without complication [...] (two) times daily. 33 mL 1 Insulin [place], Disposable, (KARISHMA PEN NEEDLE) 32 gauge x [...] Diabetes & Harris, MD [facility] [address] [place] [address] Health Maintenance Due Date Last [...]
[2019-09-23 19:32] LABS: Absolute Lymphocytes (CBC) 0.7 K/uL (0.7-4.9); Basophils % 0.2 % (0-1.3); Hematocrit 41.2 % (36.0-45.0); Lymphocytes % 4.9 % (15.3-44.8); MPV 8.7 fL (7.6-11.3); RBC Red Blood Cell Count 4.96 M/uL (3.86-4.86)
[2019-09-23 19:33] LABS: Protime INR 1.01
[2019-09-23 19:57] LABS: Platelet Estimate ADEQ; Urine White Blood Cell Casts OK
[2019-09-23 19:58] LABS: Anisocytosis 1+; Blood Morphology Comment NOTED (NOT SEEN)
[2019-09-23 20:09] LABS: ALT/SGPT 13 U/L (12-78); AST/SGOT 8 U/L (15-37); Albumin 3.6 g/dL (3.4-5.0); Alkaline Phosphatase 72 U/L (45-117); BUN Blood Urea Nitrogen 7 mg/dL (7-18); Bicarbonate 26 mmol/L (21-32); Bilirubin Direct 0.3 mg/dL (0-0.2); Glucose Level 107 mg/dL (74-106); Magnesium 1.8 mg/dL (1.8-2.4); NT PRO-BNP 31 pg/mL (<125); Potassium 4.3 mmol/L (3.5-5.1); Protein, Total 7.4 g/dL (6.4-8.2); Sodium Level 138 mmol/L (136-145); Troponin (Emerg Dept Use Only) < 0.02 ng/mL (0.0-0.045)
--- NOTE | 2019-09-23 20:12 | RAD REPORT ---
EXAM DESCRIPTION: RAD - Chest Single View - 09/23/2019 7:41 pm CLINICAL HISTORY: Chest pain;Dyspnea Chest pain. COMPARISON: Chest Single View dated 08/04/2018; Chest Single View dated 03/12/2018; Chest Single View dated 09/10/2017; CHEST SINGLE VIEW dated 07/02/2015 FINDINGS: Portable technique limits examination quality. The lungs are grossly clear. The heart is normal in size. No displaced fractures. IMPRESSION: No acute intrathoracic process suspected.
[2019-09-23] MEDS ORDERED: NA CHLORIDE 0.9% 1,000 ML ONE (22:18)
[2019-09-23] MEDS ORDERED: METOPROLOL TARTRATE 5 MG/5 ML INJ IV ONE (22:18)
--- NOTE | 2019-09-23 22:20 | ER ---
Nurse's Notes [facility] Name: Teetee Hannah Age: 28 yrs Sex: Female : 1990 Arrival Date: 09/23/2019 Time: 18:20 Bed 13 Private MD: Diagnosis: Chest pain, unspecified;Tachycardia, unspecified Presentation: 09/23 18:25 Presenting complaint: Patient states: I have really bad chest pain, it feels real jl7 tight, started yesterday afternoon. I had an injection of Ozempic for the first time yesterday, it's for weight loss for diabetics, 3-4 hours prior to having this feeling. Transition of care: patient was not received from another setting of care. Onset of symptoms was September 22, 2019 at 20:00. Risk Assessment: Do you want to hurt yourself or someone else? Patient reports no desire to harm self or others. Initial Sepsis Screen: Does the patient meet any 2 criteria? No. Patient's initial sepsis screen is negative. Does the patient have a suspected source of infection? No. Patient's initial sepsis screen is negative. Care prior to arrival: None. 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 - Coronavirus screen:: The patient has NOT traveled to [place], [place], or [place] in the past 14 days. Proceed with normal triage process as indicated. - Social history:: Smoking status: Patient reports the use of cigarette tobacco products, 2 cigarettes/day. - Ebola Screening: : No symptoms or risks identified at this time. Screenin:00 Abuse screen: Denies threats or abuse. Nutritional screening: No deficits noted. jb4 Tuberculosis screening: No symptoms or risk factors identified. Fall Risk None identified. Assessment: 19:00 General: Appears in no apparent distress. uncomfortable, Behavior is calm, cooperative, jb4 appropriate for age. Pain: Complains of pain in mid-sternal area Pain radiates to back Pain currently is 8 out of 10 on a pain scale. Quality of pain is described as pressure, Pain began 1 day ago. Neuro: Level of Consciousness is awake, alert, obeys commands, Oriented to person, place, time, situation. Cardiovascular: Patient's skin is warm and dry. Respiratory: Airway is patent Respiratory effort is even, unlabored, Respiratory pattern is regular, symmetrical. GI: No signs and/or symptoms were reported involving the gastrointestinal system. : No signs and/or symptoms were reported regarding the genitourinary system. EENT: No signs and/or symptoms were reported regarding the EENT system. Derm: Skin is intact, Skin is pink, warm \T\ dry. Musculoskeletal: Circulation, motion, and sensation intact. Range of motion: intact in all extremities. 20:15 Reassessment: Patient appears in no apparent distress at this time. Patient and/or jb4 family updated on plan of care and expected duration. Pain level reassessed. Patient is alert, oriented x 3, equal unlabored respirations, skin warm/dry/pink. 21:14 Reassessment: Patient appears in no apparent distress at this time. Patient and/or jb4 family updated on plan of care and expected duration. Pain level reassessed. Patient is alert, oriented x 3, equal unlabored respirations, skin warm/dry/pink. 22:55 Reassessment: Patient appears in no apparent distress at this time. Patient and/or jb4 family updated on plan of care and expected duration. Pain level reassessed. Patient is alert, oriented x 3, equal unlabored respirations, skin warm/dry/pink. Vital Signs: 18:29 BP 113 / 82; Pulse 127; Resp 19 S; Temp 98.7(O); Pulse Ox 100% on R/A; Weight 90.26 kg jl7 (R); Height 5 ft. 9 in. (175.26 cm) (R); Pain 8/10; 20:24 BP 130 / 84; Pulse 103; Resp 18; Pulse Ox 100% on R/A; ds4 21:13 BP 132 / 80; Pulse 104; Resp 16; Pulse Ox 100% on R/A; jb4 22:45 BP 132 / 91; Pulse 100; Resp 16; Pulse Ox 100% on R/A; jb4 18:29 Body Mass Index 29.39 (90.26 kg, 175.26 cm) jl7 ED Course: 18:20 Patient arrived in ED. as 18:28 Triage completed. jl7 18:29 Arm band placed on right wrist. jl7 18:40 EKG done, by ED staff, reviewed by Demetris DONG. 3 19:00 Patient has correct armband on for positive identification. Placed in gown. Bed in low jb4 position. Call light in reach. Side rails up X 1. outreach and education social worker on. Pulse ox on. NIBP on. 19:00 Patient maintains SpO2 saturation greater than 95% on room air. jb4 19:03 Og Meyer, RN is Primary Nurse. jb4 19:04 Demetris Onofre PA is PHCP. jr8 19:04 Frankie Mills MD is Attending Physician. jr8 19:15 Inserted saline lock: 20 gauge in right antecubital area, using aseptic technique. ds4 Blood collected. 19:42 XRAY Chest (1 view) In Process Unspecified. EDMS 22:56 No provider procedures requiring assistance completed. IV discontinued, intact, jb4 bleeding controlled, No redness/swelling at site. Pressure dressing applied. Administered Medications: 20:37 Drug: NS 0.9% 1000 ml Route: IV; Rate: 1000 ml; Site: right antecubital; jb4 22:30 Drug: Lopressor 5 mg Route: IVP; Site: right antecubital; jb4 22:57 Follow up: Response: No adverse reaction; No adverse reaction, heart rate decreased. jb4 Point of Care Testing: Blood Glucose: 18:40 Blood Glucose: 92 mg/dL; jl7 Ranges: Outcome: 22:20 Discharge ordered by . jr8 22:57 Patient left the ED. jb4 Signatures: Dispatcher [employer] EDMS Lisa Rodriguez Josh, PA PA jr8 Morgan Contreras ds4 Og Meyer, JOSE GARCIA jb4 Azra Goznalez RN RN jl7 Sudha Palomares 3
--- NOTE | 2019-09-23 22:20 | EDPHYS ---
Physician Documentation [facility] Name: Teetee Hannah Age: 28 yrs Sex: Female : 1990 Arrival Date: 09/23/2019 Time: 18:20 Bed 13 Private MD: ED Physician Frankie Mills HPI: 09/23 20:38 This 28 yrs old Female presents to ER via Ambulatory with complaints of Chest jr8 Pain, Headache. 20:38 The patient or guardian reports chest pain that is located primarily in the substernal jr8 area. The pain radiates to back. Associated signs and symptoms: Pertinent positives: headache. The chest pain is described as clutching. Duration: The patient or guardian reports a single episode, that is still ongoing. Modifying factors: The symptoms are alleviated by nothing. the symptoms are aggravated by nothing. Severity of pain: At its worst the pain was mild in the emergency department the pain is unchanged. The patient has not experienced similar symptoms in the past. The patient has not recently seen a physician. Stated that she just started on Ozempic for diabetes and weight loss. Stated that shortly after taking the medication yesterday started to have chest tightness that continues through today. 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 - Coronavirus screen:: The patient has NOT traveled to [place], [place], or [place] in the past 14 days. Proceed with normal triage process as indicated. - Social history:: Smoking status: Patient reports the use of cigarette tobacco products, 2 cigarettes/day. - Ebola Screening: : No symptoms or risks identified at this time. ROS: 20:38 Eyes: Negative for injury, pain, redness, and discharge, ENT: Negative for injury, jr8 pain, and discharge, Neck: Negative for injury, pain, and swelling, Respiratory: Negative for shortness of breath, cough, wheezing, and pleuritic chest pain, Abdomen/GI: Negative for abdominal pain, nausea, vomiting, diarrhea, and constipation, Back: Negative for injury and pain, MS/Extremity: Negative for injury and deformity, Skin: Negative for injury, rash, and discoloration. 20:38 Cardiovascular: Positive for chest pain, Negative for edema, orthopnea, palpitations, paroxysmal nocturnal dyspnea. 20:38 Neuro: Positive for headache. Exam: 20:38 Eyes: Pupils equal round and reactive to light, extra-ocular motions intact. Lids and jr8 lashes normal. Conjunctiva and sclera are non-icteric and not injected. Cornea within normal limits. Periorbital areas with no swelling, redness, or edema. ENT: Nares patent. No nasal discharge, no septal abnormalities noted. Tympanic membranes are normal and external auditory canals are clear. Oropharynx with no redness, swelling, or masses, exudates, or evidence of obstruction, uvula midline. Mucous membranes moist. Neck: Trachea midline, no thyromegaly or masses palpated, and no cervical lymphadenopathy. Supple, full range of motion without nuchal rigidity, or vertebral point tenderness. No Meningismus. Respiratory: Lungs have equal breath sounds bilaterally, clear to auscultation and percussion. No rales, rhonchi or wheezes noted. No increased work of breathing, no retractions or nasal flaring. Abdomen/GI: Soft, non-tender, with normal bowel sounds. No distension or tympany. No guarding or rebound. No evidence of tenderness throughout. Back: No spinal tenderness. No costovertebral tenderness. Full range of motion. Skin: Warm, dry with normal turgor. Normal color with no rashes, no lesions, and no evidence of cellulitis. MS/ Extremity: Pulses equal, no cyanosis. Neurovascular intact. Full, normal range of motion. Neuro: Awake and alert, GCS 15, oriented to person, place, time, and situation. Cranial nerves II-XII grossly intact. Motor strength 5/5 in all extremities. Sensory grossly intact. Cerebellar exam normal. Normal gait. 20:38 Cardiovascular: Rate: tachycardic, Rhythm: regular, Pulses: Pulses are 2+ in right radial artery and left radial artery. Heart sounds: normal, no S3 or S4, no murmur, no rub, no gallop, Edema: is not appreciated, JVD: is not appreciated. Vital Signs: 18:29 BP 113 / 82; Pulse 127; Resp 19 S; Temp 98.7(O); Pulse Ox 100% on R/A; Weight 90.26 kg jl7 (R); Height 5 ft. 9 in. (175.26 cm) (R); Pain 8/10; 20:24 BP 130 / 84; Pulse 103; Resp 18; Pulse Ox 100% on R/A; ds4 21:13 BP 132 / 80; Pulse 104; Resp 16; Pulse Ox 100% on R/A; jb4 22:45 BP 132 / 91; Pulse 100; Resp 16; Pulse Ox 100% on R/A; jb4 18:29 Body Mass Index 29.39 (90.26 kg, 175.26 cm) jl7 MDM: 19:11 Patient medically screened. jr8 20:40 Data reviewed: vital signs, nurses notes, lab test result(s), EKG, radiologic studies, jr8 plain films. Data interpreted: Pulse oximetry: on room air is 100 %. Interpretation: normal. Counseling: I had a detailed discussion with the patient and/or guardian regarding: the historical points, exam findings, and any diagnostic results supporting the discharge/admit diagnosis, lab results, radiology results, the need for outpatient follow up, a family practitioner, to return to the emergency department if symptoms worsen or persist or if there are any questions or concerns that arise at home. 22:17 ED course: Patient doing better. HR decreasing. Denies drug abuse. Normal labs and CXR. jr8 Negative cardiac enzymes and DD. Most likely new medication that caused this since it was only a couple hours post injection when symptoms started. Recommended f/u with PCP and d/c of that medication. Return precautions given. Patient happy and good with recommendations and plan . 09/23 18:51 Order name: Glucose, Ancillary Testing; Complete Time: 19:06 EDMS 09/23 19:06 Order name: Basic Metabolic Panel; Complete Time: 20: 8 09/23 19:06 Order name: CBC with Diff; Complete Time: 20: 8 09/23 19:06 Order name: LFT's; Complete Time: 20: 8 09/23 19:06 Order name: Magnesium; Complete Time: 20: 8 09/23 19:06 Order name: NT PRO-BNP; Complete Time: 20:27 09/23 19:06 Order name: PT-INR; Complete Time: 19:48 09/23 19:06 Order name: Troponin (emerg Dept Use Only); Complete Time: 20:27 09/23 19:06 Order name: XRAY Chest (1 view); Complete Time: 20:27 09/23 19:06 Order name: EKG; Complete Time: 19:06 09/23 19:37 Order name: DD; Complete Time: 20:27 09/23 19:58 Order name: CBC Smear Scan; Complete Time: 20:27 [facility] 09/23 19:06 Order name: Cardiac monitoring; Complete Time: 19:47 09/23 19:06 Order name: EKG - Nurse/Tech; Complete Time: 19:47 09/23 19:06 Order name: IV Saline Lock; Complete Time: 19:47 09/23 19:06 Order name: Labs collected and sent; Complete Time: 19:47 09/23 19:06 Order name: O2 Per Protocol; Complete Time: 19:47 09/23 19:06 Order name: O2 Sat Monitoring; Complete Time: 19:48 09/23 20:29 Order name: Cardiac monitoring; Complete Time: 20:38 jr8 Administered Medications: 20:37 Drug: NS 0.9% 1000 ml Route: IV; Rate: 1000 ml; Site: right antecubital; jb4 22:30 Drug: Lopressor 5 mg Route: IVP; Site: right antecubital; jb4 22:57 Follow up: Response: No adverse reaction; No adverse reaction, heart rate decreased. jb4 Point of Care Testing: Blood Glucose: 18:40 Blood Glucose: 92 mg/dL; jl7 Ranges: Critical Glucose Levels:Adult <50 mg/dl or >400 mg/dl <40 mg/dl or >180 mg/dl Disposition: 09/24 07:34 Co-signature as Attending Physician, Frankie Mills MD I agree with the assessment and nima plan of care. Disposition: 09/23/19 22:20 Discharged to Home. Impression: Chest pain, unspecified, Tachycardia, unspecified. - Condition is Stable. - Discharge Instructions: Nonspecific Chest Pain, Holter Monitoring, Sinus Tachycardia. - Medication Reconciliation Form, Thank You Letter, Antibiotic Education, Prescription Opioid Use form. - Follow up: Private Physician; When: 2 - 3 days; Reason: Recheck today's complaints, Continuance of care, Re-evaluation by your physician. - Problem is new. - Symptoms have improved. Signatures: Dispatcher [employer] EDMS Frankie Mills MD MD cha Roszak, Josh, PA PA jr8 Og Meyer, RN RN jb4 Azra Gonzalez RN RN jl7 Corrections: (The following items were deleted from the chart) 09/23 22:57 22:20 09/23/2019 22:20 Discharged to Home. Impression: Chest pain, unspecified; jb4 Tachycardia, unspecified. Condition is Stable. Forms are Medication Reconciliation Form, Thank You Letter, Antibiotic Education, Prescription Opioid Use. Follow up: Private Physician; When: 2 - 3 days; Reason: Recheck today's complaints, Continuance of care, Re-evaluation by your physician. Problem is new. Symptoms have improved. jr8
--- NOTE | 2019-09-24 06:46 | EKG ---
Test Date: 2019-09-23 Test Time: 18:40:20 Class 1 Owner Operator: BIJAL MEASUREMENT RESULTS: Intervals: Rate: 116 NE: 132 QRSD: 66 QT: 304 QTc: 422 Crane: P: 40 NE: 132 QRS: -17 T: 44 INTERPRETIVE STATEMENTS: Sinus tachycardia Otherwise normal ECG Compared to ECG 03/12/2018 14:26:19 Left ventricular hypertrophy no longer present Electronically Signed On 09-24-19 06:46:02 STOCKKEEPER by Ricco Keller
[2019-09-24 11:48] VITALS: TEMP 98.7; O2SAT 100
[2019-09-24 13:13] VITALS: BP 132/91
== END 2019-09-23 22:57 | disposition home or self-care (01) ==
LOC: ER 18:19
DX: R00.0 Tachycardia, unspecified (principal); F31.9 Bipolar disorder, unspecified; E11.9 Type 2 diabetes mellitus without complications; Z72.0 Tobacco use; Z79.4 Long term (current) use of insulin; Z88.8 Allergy status to other drugs, medicaments and biological substances; Z96.41 Presence of insulin pump (external) (internal)
CPT/HCPCS: 93005; 85025; 80048; 36415; 83735; 85610; 82947; 85379; 80076; 84484; 83880; 71045; 96374; 99285; J7030

== ENCOUNTER 2020-04-17 14:48 | Inpatient (IN) | payer OTHER, SELFPAY ==
--- OUTSIDE RECORDS SUMMARY | 2020-04-17 14:49 | XMS REPORT | Summary of Care ---
:1990 Author Organization [facility] Address [address] [place] [address] Care Team Providers Name Role Phone MatRosemary Primary Care Provider Reason for Visit Reason Comments Orders Encounter Details Date Type Department Care Team Description 01/20/2020 Telephone [facility] Endocrinology- Christina Harris MD Orders [address] Professional Office [place], [place] [id number] [place] [address] [address]. [address] [place] [address] Allergies Active Allergy Reactions Severity Noted Date Comments Insulin Lispro Hives 01/15/2017 documented as of this encounter (statuses as of 01/20/2020) Medications Medication Sig Dispensed Refills Start Date End Date Status blood sugar Use as directed, 6-8 750 Strip 3 01/29/2017 Active diagnostic (ONETOUCH times daily, pt on VERIO) strip insulin pump, DX: E10.9 LATUDA 40 mg tablet Take 40 mg by mouth 0 07/28/2017 Active daily. flash glucose 1 Each daily. 1 Each 1 07/09/2018 A ctive scanning reader (FREESTYLE ROSS 10 DAY READER) MiscIndications: Type 1 diabetes mellitus without complication, Hypoglycemia, Insulin pump titration flash glucose sensor 1 Each every 10 9 Kit 3 07/09/2018 Active (FREESTYLE ROSS 10 (ten) days. DAY SENSOR) KitIndications: Type 1 diabetes mellitus without complication, Hypoglycemia, Insulin pump titration TRINTELLIX 10 mg Tab Take 1 tablet by 0 06/20/2018 Active mouth daily. Insulin [place], Use as directed. 1 Box 1 09/09/2018 Active Disposable, (KARISHMA Once daily PEN NEEDLE) 32 gauge x 5/32" NdleIndications: Type 1 diabetes mellitus with hyperglycemia Insulin Glargine inject 18 Units 33 mL 1 10/01/2018 Active (LANTUS SOLOSTAR under the skin 2 U-100 INSULIN) 100 (two) times daily. unit/mL (3 mL) injectionIndications : Type 1 diabetes mellitus with hyperglycemia glucagon (GLUCAGON 1 mg by 3 Each 1 02/17/2019 Active EMERGENCY KIT, Intramuscular route HUMAN,) 1 mg as needed injectionIndications (Hypoglycemia). : Type 1 diabetes mellitus without complication, Hypoglycemia semaglutide inject 0.5 mg under 3 mL 3 09/22/2019 Active (OZEMPIC) 0.25 mg or the skin weekly. 0.5 mg(2 mg/1.5 mL) PnIjIndications: Type 1 diabetes mellitus without complication insulin aspart RAPID Use up to 100 units 90 mL 0 0 Active (NOVOLOG U-100 daily in insulin INSULIN ASPART) 100 pump. 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 Counseling for insulin pump 01/15/2017 documented as of this encounter (statuses as of 01/20/2020) Social History Tobacco Use Types Packs/Day Years [...] Treatment Date Type Specialty Care Team Description 01/20/2020 Office Visit Endocrinology Diabetes & Gopi Harirs MD Metabolism [facility] [place] [address] [phone] Health Maintenance Due Date Last Done Comments VARICELLA VACCINES (1 of 2 - 1990 2-dose childhood series) PNEUMOCOCCAL 0-64 YEARS COMBINED 1995 SERIES (1 of 1 - PPSV23) EYE EXAM 1999 LDL-C 1999 URINE MICROALBUMIN 1999 DTaP,Tdap,and Td Vaccines (1 - 2000 Tdap) PAP SMEAR 2010 CREATININE (SERUM) 09/09/2019 09/09/2018, 09/16/2017, 07/30/2017 HgA1C 03/22/2020 09/22/2019, 11/11/2018, 07/09/2018, Additional history exists INFLUENZA VACCINE (Season Ended) 2020 FOOT EXAM 09/22/2020 09/22/2019, 09/22/2019, 09/09/2018, Additional history exists documented as of this encounter Results Not on filedocumented in this encounter
--- OUTSIDE RECORDS SUMMARY | 2020-04-17 14:49 | XMS REPORT | Continuity of Care Document ---
:1990 Author Organization [facility] t Address [address] [place] [address] Care Team Providers Name Role Phone Steven MCKAY Attending Clinician Nurse, Endo/Diab Attending Clinician Unavailable Doctor Unassigned, Name Attending Clinician Unavailable Giovanni MCKAY Attending Clinician Alanna MCKAY, S Attending Clinician Problems This patient has no known problems. Allergies, Adverse Reactions, Alerts This patient has no known allergies or adverse reactions. Medications This patient has no known medications. Procedures This patient has no known procedures. Encounters Start End Encounter Admission Attending Care Care Encounter Source Date/Time Date/Time Type Type Clinicians Facility Department ID 2020-02-25 2020-02-25 Refill LISETH Harris [id number] 00:00:00 00:00:00 Christina Duncan [id number] [place] [id number] Professio [phone] [facility] [address] [facility] 2020-02-17 2020-02-17 Telephone LISETH Harris [id number] 00:00:00 00:00:00 Christina Duncan [id number] [place] [id number] Professio [phone] [facility] [address] [facility] 2020-02-11 2020-02-11 Nurse Benito Minaya [id number] 08:28:20 08:58:20 Visit Endo/Diab Selah [id number] [place] [id number] Professio [phone] [address] 2020-02-11 2020-02-11 Orders Doctor JOIE [id number] 00:00:00 00:00:00 Only Unassigned, BERTA [id number] [place] [facility] [id number] [id number] 2020-02-11 2020-02-11 Telephone Harris, RUST [id number] 00:00:00 00:00:00 Scarlettong [place] [id number] [place] [id number] Professio [phone] [address] 2020-02-09 2020-02-09 Telephone Harris, RUST [id number] 00:00:00 00:00:00 [place]ong [place] [id number] [place] [id number] Professio [phone] [address] 2020-02-05 2020-02-05 Refill Steven, RUST [id number] 00:00:00 00:00:00 [place]ong [place] [id number] [place] [id number] Professio [phone] [address] 2020-01-31 2020-01-31 Emergency Thai Davila RUST [id number] 17:31:47 20:25:00 Shar Mondragon [place] [id number] [place] [id number] [place] [phone] [id number] 2020-01-28 2020-01-28 Telephone Harris, RUST [id number] 00:00:00 00:00:00 Scarlettong [place] [id number] [place] [id number] Professio [phone] [address] 2020-01-20 2020-01-20 Telephone Harris, RUST [id number] 00:00:00 00:00:00 Christina [place] [id number] [place] [id number] Professio [phone] [address] 2020-01-12 2020-01-12 Telephone Harris, RUST [id number] 00:00:00 00:00:00 Christina [place] [id number] [place] [id number] Professio [phone] [address] 2019-12-29 2019-12-29 Telemedici Harris, RUST [id number] 08:07:36 08:37:36 ne Visit Christina Belloton [id number] [place] [id number] Professio [phone] [address] 2019-10-27 2019-10-27 Telephone [facility], RUST [id number] 00:00:00 00:00:00 Christina Selah [id number] [place] [id number] Professio [phone] [address] 2019-10-23 2019-10-23 [facility] [id number] 00:00:00 00:00:00 Christina Belloton [id number] [place] [id number] Professio [phone] [address] 2019-09-22 2019-09-22 Office Harris, RUST [id number] 10:59:01 11:59:40 Visit Christina Belloton [id number] [place] [id number] Professio [phone] [address] Results This patient has no known results.
--- OUTSIDE RECORDS SUMMARY | 2020-04-17 14:50 | XMS REPORT | Summary of Care ---
:1990 Author Organization [facility] Address [address] [place] [address] Care Team Providers Name Role Phone MatRosemary Primary Care Provider Reason for Visit Reason Comments Diabetic Education Follow Up Pump Download Encounter Details Date Type Department Care Team Description 02/11/2020 Nurse Visit [facility] Christina Harris MD [address] [place], [place] [id number] Type 1 diabetes Endocrinology- Nurse, Benito Endo/Diab mellitus without [place] complication ([address]) [facility], [address] [place] [address] Allergies Active Allergy Reactions Severity Noted Date Comments Insulin Lispro Hives 01/15/2017 documented as of this encounter (statuses as of 02/11/2020) Medications Medication Sig Dispensed Refills Start Date [...] by 0 06/20/2018 Active mouth daily. Insulin [place], Use as directed. 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 COVID-19 Exposure Response Date Recorded In the last month, have you been in contact with No / Unsure 02/11/2020 8:27 AM CDT someone who was confirmed or suspected to have Coronavirus / COVID-19? documented as of this encounter Last Filed Vital Signs Vital Sign Reading Time Taken Comments Blood Pressure - - Pulse - - Temperature 37.1 C (98.8 F) 02/11/2020 8:55 AM CDT Respiratory Rate - - Oxygen Saturation - - Inhaled Oxygen Concentration - - Weight - - Height - - Body Mass Index - - documented in this encounter Progress Notes Juju Mace LVN - 02/11/2020 9:00 AM CDTTandem pump download scanned to chart for provider review Andria Ulrichectronically signed by Juju Mace LVN at 02/11/2020 9:11 AM CDTdocumented in this encounter Plan of Treatment Date Type Specialty Care Team Description 04/20/2020 Office Visit Endocrinology Diabetes & Gopi Harris MD Metabolism [address] [place] [address] Health Maintenance Due Date Last Done Comments VARICELLA VACCINES (1 of 2 - 1990 2-dose childhood series) PNEUMOCOCCAL 0-64 YEARS COMBINED 1995 SERIES (1 of 1 - PPSV23) EYE EXAM 1999 LDL-C 1999 URINE MICROALBUMIN 1999 DTaP,Tdap,and Td Vaccines (1 - 2000 Tdap) Depression Screening 2001 PAP SMEAR 2010 HgA1C 03/22/2020 09/22/2019, 11/11/2018, 07/09/2018, Additional history exists INFLUENZA VACCINE (Season Ended) 2020 FOOT EXAM 09/22/2020 09/22/2019, 09/22/2019, 09/09/2018, Additional history exists CREATININE (SERUM) 01/30/2021 01/31/2020, 09/09/2018, 09/16/2017, Additional history exists documented as of this encounter Results Not on filedocumented in this encounter Visit Diagnoses Diagnosis Type 1 diabetes mellitus without complic ation - Primary Type I (juvenile type) diabetes mellitus without mention of complication, not stated as uncontrolled documented in this encounter Insurance Payer Benefit Plan / Subscriber ID Effective Dates Phone Addre ss Type Group HIM [id number] 2019-Present PPO [id number] ACTED RACTED documented as of this encounter
--- OUTSIDE RECORDS SUMMARY | 2020-04-17 14:50 | XMS REPORT | Summary of Care ---
:1990 Author Organization [facility] Address [address] [place] [id number] Care Team Providers Name Role Phone RiveroRosemary Primary Care Provider Reason for Referral Radiology Services (STAT) Status Reason Specialty Diagnoses / Referred By Referred To Procedures Contact Contact New Request Diagnostic Diagnoses Thai Sinha, Radiology Procedures Chest [address] [place] [address] [place] [id number] Reason for Visit Reason Comments Other "blood sugar problems" Auth/Cert Status Reason Specialty Diagnoses / Referred By Referred To Procedures Contact Contact Emergency Medicine [facility] Em ergency Dept [address] [place] [address] Fax: Encounter Details Date Type Department Care Team Description 01/31/2020 Emergency ADC-Emergency Thai Davila MD [address] [place] [address] [place] [address] [phone] Weakness (Primary Dx); Department Shar Mondragon MD [address] [place] [address] [phone] Uncontrolled type 1 diabetes mellitus wi th hyperglycemia; [address] [place] [phone] Allergies Active Allergy Reactions Severity Noted Date Comments Insulin Lispro Hives 01/15/2017 documented as of this encounter (statuses as of 01/31/2020) Medications Medication Sig Dispensed Refills Start Date End Date Status blood sugar Use as directed, 6-8 750 Strip 3 01/29/2017 Active diagnostic (ONETOUCH times daily, pt on VERIO) strip insulin pump, DX: E10.9 LATUDA 40 mg tablet Take 40 mg by mouth 0 07/28/2017 Active daily. flash glucose 1 Each daily. 1 Each 1 07/09/2018 A ctive scanning reader (EtsySTYLE ROSS 10 DAY READER) MiscIndications: Type 1 diabetes mellitus without complication, Hypoglycemia, Insulin pump titration flash glucose sensor 1 Each every 10 9 Kit 3 07/09/2018 Active (FREESTYLE ROSS 10 (ten) days. DAY SENSOR) KitIndications: Type 1 diabetes mellitus without complication, Hypoglycemia, Insulin pump titration TRINTELLIX 10 mg Tab Take 1 tablet by 0 06/20/2018 Active mouth daily. Insulin Troy, Use as directed. 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 documented as of this encounter Last Filed Vital Signs Vital Sign Reading Time Taken Comments Blood Pressure 111/81 01/31/2020 8:01 PM CDT Pulse 96 01/31/2020 8:01 PM CDT Temperature 36.7 C (98.1 F) 01/31/2020 5:41 PM CDT Respiratory Rate 18 01/31/2020 8:00 PM CDT Oxygen Saturation 98% 01/31/2020 8:01 PM CDT Inhaled Oxygen Concentration - - Weight 86.6 kg (191 lb) 01/31/2020 5:41 PM CDT Height 172.7 cm (5' 8") 01/31/2020 5:41 PM CDT Body Mass Index 29.04 01/31/2020 5:41 PM CDT documented in this encounter Discharge Instructions Shar Alcala MD - 01/31/2020 DIAGNOSIS Diagnoses that have been ruled out: None Diagnoses that are still under consideration: None Final diagnoses: Weakness Uncontrolled type 1 diabetes mellitus with hyperglycemia Situational anxiety NO LIFE-THREATENING FINDINGS ON TODAY'S EXAM. PROCEDURES IN THE ER TODAY: Orders Placed This Encounter Procedures Chest 1 View Urinalysis CBC with Differential Basic Metabolic Panel (NA, K, CL, CO2, GLUCOSE, BUN, CREATININE, CA) Hepatic Function Panel (ALB, T.PRO, BILI T, BU/BC, ALT, AST, ALK PHOS) Lipase Serum Troponin I aPTT Prothrombin Time (PT) / INR N-TERMINAL PRO-BNP ADC / LCC - DRUG SCREEN TRIAGE ETHANOL FREE T4 FREE T3 THYROID STIMULATING HORMONE CBC WITH DIFFERENTIAL POCT GLUCOSE (AUTOMATED) MEDICATIONS ADMINISTERED IN THE ER TODAY AND DISCHARGE MEDICATIONS: Orders Placed This Encounter Medications NaCl 0.9% (NS) bolus infusion 1,000 mL FOLLOW-UP RECOMMENDATIONS: RECOMMEND FOLLOW-UP WITH A PRIMARY CARE PROVIDER OR SPECIALIST IN 2-5 DAYS, ESPECIALLY IF NO IMPROVEMENT IN SYMPTOMS. MAY FOLLOW-UP WITH A PROVIDER OF YOUR CHOICE, SUCH : 1. A PHYSICIAN OF YOUR CHOICE 2. [facility], . LOCATIONS IN [facility] 3. [facility], [address], [place]; [phone] OR, IF YOU WISH TO FOLLOW-UP WITHIN THE [facility], MAY TRY THESE OPTIONS (CLINIC APPOINTMENTS AVAILABLE ON [id number] BASIS): 1. SCHEDULE AN APPOINTMENT ONLINE AT [email or web address] 2. OR CALL THE [facility] AT OR 3. OR CALL YOUR [facility] PHYSICIAN'S OFFICE DIRECTLY IF YOU ARE ALREADY AN ESTABLISHED [facility] PATIENT. RETURN TO ER FOR WORSENING OF SYMPTOMS documented in this encounter Plan of Treatment Name Type Priority Associated Diagnoses Date/Ti me Urinalysis LAB STAT Weakness 01/31/2020 7:4 8 PM CDT Name Type Priority Associated Diagnoses Order S chedule Urinalysis LAB STAT Weakness STAT for 1 Occu rrences starting 01/31/2020 unti l 01/31/2020, 1 completed Health Maintenance Due Date Last Done Comments VARICELLA VACCINES (1 of 2 - 1990 2-dose childhood series) PNEUMOCOCCAL 0-64 YEARS COMBINED 1995 SERIES (1 of 1 - PPSV23) EYE EXAM 1999 LDL-C 1999 URINE MICROALBUMIN 1999 DTaP,Tdap,and Td Vaccines (1 - 2000 Tdap) Depression Screening 2001 PAP SMEAR 2010 CREATININE (SERUM) 09/09/2019 09/09/2018, 09/16/2017, 07/30/2017 HgA1C 03/22/2020 09/22/2019, 11/11/2018, 07/09/2018, Additional history exists INFLUENZA VACCINE (Season Ended) 2020 FOOT EXAM 09/22/2020 09/22/2019, 09/22/2019, 09/09/2018, Additional history exists documented as of this encounter Procedures Procedure Name Priority Date/Time Associated Comments Diagnosis ADC / LCC - DRUG STAT 01/31/2020 7:48 Weakness Results for this SCREEN TRIAGE PM CDT procedure are in the results section. XR CHEST 1 VW STAT 01/31/2020 6:35 Weakness Results fo r this PM CDT procedure are i n the results section. CBC WITH DIFFERENTIAL STAT 01/31/2020 6:31 Weakness Re sults for this PM CDT procedure are i n the results section. FREE T3 STAT 01/31/2020 6:31 Weakness Results for this PM CDT procedure are i n the results section. N-TERMINAL PRO-BNP STAT 01/31/2020 6:31 Weakness Resul ts for this PM CDT procedure are i n the results section. ACTIVATED PARTIAL STAT 01/31/2020 6:31 Weakness Result s for this THRMPLAS GALDINO PM CDT procedure are i n the results section. PROTHROMBIN TIME / STAT 01/31/2020 6:31 Weakness Resul ts for this INR PM CDT procedure are i n the results section. CBC WITH DIFFERENTIAL Routine 01/31/2020 6:31 Weakness Re sults for this PM CDT procedure are i n the results section. ETHANOL STAT 01/31/2020 6:31 Weakness Results for this PM CDT procedure are i n the results section. BASIC METABOLIC PANEL STAT 01/31/2020 6:31 Weakness Re sults for this (NA, K, CL, CO2, PM CDT procedure a re in GLUCOSE, BUN, the results CREATININE, CA) section. HEPATIC FUNCTION STAT 01/31/2020 6:31 Weakness Results for this PANEL (36543) PM CDT procedure are in (ALB,T.PRO,BILI the results T,BU/BC,ALT,AST,ALK section. PHOS) THYROID STIMULATING STAT 01/31/2020 6:31 Weakness Resu lts for this HORMONE PM CDT procedure are i n the results section. FREE T4 STAT 01/31/2020 6:31 Weakness Results for this PM CDT procedure are i n the results section. TROPONIN I STAT 01/31/2020 6:31 Weakness Results for this PM CDT procedure are i n the results section. LIPASE STAT 01/31/2020 6:31 Weakness Results for this PM CDT procedure are i n the results section. POCT GLUCOSE Routine 01/31/2020 5:46 Results for this (AUTOMATED) PM CDT procedure are i n the results section. documented in this encounter Results ADC / LCC - DRUG SCREEN TRIAGE (01/31/2020 7:48 PM CDT) Pathologist Sig nature BENZO U Negative Negative [facility] LYNDON U Negative Negative [facility] AMPHET Negative Negative [facility] THC Negative Negative [facility] METHADONE Negative Negative [facility] Meth U Negative Negative [facility] OPIATES Negative Negative [facility] Cocaine Metabolite Negative Negative [facility] PROPOXY Negative Negative [facility] Tric U Negative Negative [facility] PCP Negative Negative [facility] OXYCOD Negative Negative [facility] Specimen Urine - URINE, CLEAN CATCH Narrative Performed At Urine Drug Cutoff Ranges [facility] Benzodiazepines: 150 ng/mL Barbiturates: 200 ng/mL Amphetamine: 500 ng/mL Cannabinoids: 50 ng/mL Methadone: 200 ng/mL Methamphetamine: 500 ng/mL Opiates: 100 ng/mL or 2000 ng/mL Cocaine: 150 ng/mL Propoxyphene: 300 ng/mL Tricyclics: 300 ng/mL Oxycodone: 100 ng/mL PCP: 25 ng/mL The results are to be used only for medical (i.e., treatment) purposes. Unconfirmed screening results must not be used for non-medical purposes (e.g., employment testing, legal testing). Performing Organization Address City/State/Zipcode Phone Number [facility] CLIA: [id number], [address] [place], [place] [address] Chest 1 View (01/31/2020 6:35 PM CDT) Specimen Impressions Performed At PACS/VR/DOSE No acute intrathoracic abnormality. Preliminary Report Dictated by Resident: Dominic Chapa MD., have review ed this study and agree with the above report. Narrative Performed At PROCEDURE: XR CHEST 1 VW PACS/VR/DOSE CLINICAL INDICATION: chest pain COMPARISON: None Technique: Single AP view of the chest. FINDINGS: The lungs are clear. No pleural effusion or pneumothor ax is seen. The heart is normal in size. No acute bony abnormality. Procedure Note [facility], Radiant Results Inft User - 2019 7:20 PM CDT PROCEDURE: XR CHEST 1 VW CLINICAL INDICATION: chest pain COMPARISON: None Technique: Single AP view of the chest. FINDINGS: The lungs are clear. No pleural effusion or pneumothorax is seen. The heart is normal in size. No acute bony abnormality. IMPRESSION No acute intrathoracic abnormality. Preliminary Report Dictated by Resident: Xavier López I, Dominic Dozier MD., have reviewe d this study and agree with the above report. Performing Organization Address City/State/Zipcode Phone Number PACS/VR/DOSE CBC WITH DIFFERENTIAL (01/31/2020 6:31 PM CDT) Pathologist Sig nature WBC 7.49 4.30 - 11.10 [facility] 10*3/L [facility] RBC 4.32 3.93 - 5.25 [facility] 10*6/L [facility] HGB 13.8 11.6 - 15.0 g/dL [facility] HCT 41.2 35.7 - 45.2 % [facility] MCV 95.4 80.6 - 95.5 fL [facility] MCH 31.9 25.9 - 32.8 pg [facility] MCHC 33.5 31.6 - 35.1 g/dL [facility] RDW-SD 45.4 39.0 - 49.9 fL [facility] RDW-CV 12.9 12.0 - 15.5 % [facility] PLT 246 166 - 358 [facility] 10*3/L [facility] MPV 10.6 9.5 - 12.9 fL [facility] NRBC/100 WBC 0.0 0.0 - 10.0 /100 [facility] NRBC x10^3 <0.01 10*3/L [facility] GRAN MAT (NEUT) % 58.8 % [facility] IMM GRAN % 0.40 % [facility] LYMPH % 31.0 % [facility] MONO % 7.5 % [facility] EOS % 2.0 % [facility] BASO % 0.3 % [facility] GRAN MAT x10^3(ANC) 4.41 1.88 - 7.09 [facility] 10*3/uL [facility] IMM GRAN x10^3 0.03 0.00 - 0.06 [facility] 10*3/uL [facility] LYMPH x10^3 2.32 1.32 - 3.29 [facility] 10*3/uL [facility] MONO x10^3 0.56 0.33 - 0.92 [facility] 10*3/uL [facility] EOS x10^3 0.15 0.03 - 0.39 [facility] 10*3/uL [facility] BASO x10^3 <0.03 0.01 - 0.07 [facility] 10*3/uL [facility] Specimen Blood - VENOUS Performing Organization Address [facility] Phone Number [facility] CLIA: [id number], [address] [place] [address] THYROID STIMULATING HORMONE (01/31/2020 6:31 PM CDT) Pathologist Sig nature TSH 0.81 0.45 - 4.70 mIU/L [facility] Specimen Blood - VENOUS Performing Organization Address [facility] Number [facility] CLIA: [id number], [address] [place] [address] FREE T3 (01/31/2020 6:31 PM CDT) Pathologist Sig nature FREE T3 4.21 2.77 - 5.27 pg/mL [facility] Specimen Blood - VENOUS Performing Organization Address [facility] Phone Number [facility] CLIA: [id number], [address] [place] [address] FREE T4 (01/31/2020 6:31 PM CDT) Pathologist Sig nature FREE T4 1.26 0.78 - 2.20 ng/dL [facility] Specimen Blood - VENOUS Performing Organization Address [facility]/Zipcode Phone Number [facility] CLIA: [id number], [address] [place] [address] ETHANOL (01/31/2020 6:31 PM CDT) Pathologist Sig nature ALCOHOL 216 mg/dL [facility] Specimen Blood - VENOUS Narrative Performed At <10 Negative [facility] 50-100 Toxic >100 Depression of WASTE DISPOSAL ATTENDANT >400 Fatalities Reported Performing Organization Address City/[facility] Phone Number [facility] CLIA: [id number], [address] [place] [address] N-TERMINAL PRO-BNP (01/31/2020 6:31 PM CDT) Pathologist Sig nature NT-proBNP 29 <=125 pg/mL [facility] Specimen Blood - VENOUS Narrative Performed At Biotin has been reported to cause a negative [facility] bias, interpret results relative to patient's use of biotin. Performing Organization Address [facility] Phone Number [facility] CLIA: [id number], [address] [place] [address] Prothrombin Time (PT) / INR (01/31/2020 6:31 PM CDT) PROTIME PATIENT 12.4 12.0 - 14.7 [facility] LABORATORY INR 1.0Comment: Normal [facility] INR <1.1; Warfarin [facility] Therapeutic range LABORATORY 2.0 to 3.0 or 2.5 to 3.5, depending upon the indications. Specimen Blood - VENOUS Performing Organization Address [facility] Phone Number [facility] CLIA: [id number], [address] [place] [address] aPTT (01/31/2020 6:31 PM CDT) Pathologist Sig nature APTT Patient 24 23 - 38 Seconds [facility] Specimen Blood - VENOUS Narrative Performed At The [facility] patient population mean normal value [facility] for aPTT is 30 seconds. Performing Organization Address [facility] Phone Number [facility] CLIA: [id number], [address] [place] [address] Troponin I (01/31/2020 6:31 PM CDT) Pathologist [facility] TROPONIN I <0.012 <=0.034 ng/mL [facility] Specimen Blood - VENOUS Narrative Performed At Equal or Less than 0.034 ng/ml---Normal [facility] Note: Cardiac troponin begins to rise 3-4 hours after the onset of ischemia. Repeat in 4-6 hours if the sample was drawn within 3-4 hours of the onset of the symptom and found normal. Between 0.035 and 0.120 ng/mL--- Borderline. Questionable myocardial injury or necros is Note: Serial measurement may be necessary to confirm or exclude the diagnosis of myocardial injury or necrosis; Clinical correlation (symptoms, EKGs, imaging studies, and others) required; Repeat in 4-6 hours if clinically indicated. Equal or Higher than 0.121 ng/mL---Abnormal. Myocardial Injury or Necrosis Likely Biotin has been reported to cause a negative bias, interpret results relative to patient's use of biotin. Performing Organization Address City/[facility] Phone Number [facility] CLIA: [id number], [address] [place] [address] Lipase Serum (01/31/2020 6:31 PM CDT) [facility] LIPASE 32 0 - 220 U/L [facility] Specimen Blood - VENOUS Performing Organization Address [facility] Phone Number [facility] CLIA: [id number], [address] [place] [address] Hepatic Function Panel (ALB, T.PRO, BILI T, BU/BC, ALT, AST, ALK PHOS) (01/31/2020 6:31 PM CDT) Pathologist [facility] TOTAL BILI 0.2 0.1 - 1.1 mg/dL [facility] BILI UNCON 0.3 0.1 - 1.1 mg/dL [facility] BILI CONJ 0.0 0.0 - 0.3 mg/dL [facility] T PROTEIN 7.0 6.3 - 8.2 g/dL [facility] ALBUMIN 4.1 3.5 - 5.0 g/dL [facility] ALK PHOS 70 34 - 122 U/L [facility] ALTv 10 5 - 35 U/L [facility] AST(SGOT) 19 13 - 40 U/L [facility] Specimen Blood - VENOUS Performing Organization Address City/State/Zipcode Phone Number [facility] CLIA: [id number], [address] [place], [place] [address] Basic Metabolic Panel (NA, K, CL, CO2, GLUCOSE, BUN, CREATININE, CA) (01/31/2020 6:31 PM CDT) [facility] NA 138 135 - 145 [facility] mmol/L [facility] K 4.8 3.5 - 5.0 [facility] mmol/L [facility] CL 107 98 - 108 mmol/L [facility] CO2 TOTAL 26 23 - 31 mmol/L [facility] AGAP 5 2 - 16 [facility] BUN 7 7 - 23 mg/dL [facility] GLUCOSE 174 (H) 70 - 110 mg/dL [facility] CREATININE 0.83 0.50 - 1.04 [facility] mg/dL [facility] CALCIUM 9.1 8.6 - 10.6 [facility] mg/dL [facility] eGFR Calculation 80.7 mL/min/1.73m2 [facility] ([facility] eGFR Calculation 97.8 mL/min/1.73m2 [facility] () [facility] Specimen Blood - VENOUS Narrative Performed At Association of Glomerular Filtration Rate (GFR) [facility] and Staging of Kidney Disease* + + +- + | GFR (mL/min/1.73 m2) | With Kidney Damage | Without Kidney Damage + + +- + | >90 | Stage one | Normal + + +- + | 60-89 | Stage two | Decreased GFR + + +- + | 30-59 | Stage three | Stage three + + +- + | 15-29 | Stage four | Stage four + + +- + | <15 (or dialysis) | Stage five | Stage five + + +- + *Each stage assumes the associated GFR level has been in effect for at least three months. Stages 1 to 5, with or without kidney disease, indicate chronic kidney disease. Notes: Determination of stages one and two (with eGFR >59mL/min/1.73 m2) requires estimation of kidney damage for at least three months as defined by structural or functional abnormalities of the kidney, manifested by either: Pathological abnormalities or Markers of kidney damage (including abnormalities in the composition of the blood or urine or abnormalities in imaging tests). Performing Organization Address City/[facility] Phone Number [facility] CLIA: [id number], [address] [place], [place] [address] POCT GLUCOSE (AUTOMATED) (01/31/2020 5:46 PM CDT) [facility] Sig nature POCT GLU 185 (H) 70 - 110 mg/dL [facility] Specimen Blood Performing Organization Address City/[facility] Phone Number [facility] CLIA: [id number], [address] [place], [place] [address] documented in this encounter Visit Diagnoses Diagnosis Weakness - Primary Other malaise and fatigue Uncontrolled type 1 diabetes mellitus wi th hyperglycemia Situational anxiety Other anxiety states documented in this encounter Insurance Payer Benefit Plan / Subscriber ID Effective Dates Phone Addre ss Type Group HIM [id number] 2019-Present PPO [id number] ACTED RACTED documented as of this encounter
--- OUTSIDE RECORDS SUMMARY | 2020-04-17 14:50 | XMS REPORT | Summary of Care ---
:1990 Author Organization [facility] Address [address] [place] [address] Care Team Providers Name Role Phone MatRosemary Primary Care Provider Reason for Visit Reason Comments Refill Request Encounter Details Date Type Department Care Team Description 02/05/[address] [facility] Endocrinology- Christina Harris [place] [address] [address] [place] [address] [phone] Allergies Active Allergy Reactions Severity Noted Date Comments Insulin Lispro Hives 01/15/2017 documented as of this encounter (statuses as of 02/05/2020) Medications Medication Sig Dispensed Refills Start End Date Status Date blood sugar Use as directed, 750 Strip 3 A ctive diagnostic 6-8 times daily, 7 (ONETOUCH VERIO) pt on insulin strip pump, DX: E10.9 LATUDA 40 mg Take 40 mg by 0 Act joseph tablet mouth daily. 7 flash glucose 1 Each daily. 1 Each 1 Ac tive scanning reader 8 (FREESTYLE ROSS 10 DAY READER) MiscIndications: Type 1 diabetes mellitus without complication, Hypoglycemia, Insulin pump titration flash glucose 1 Each every 10 9 Kit 3 Active sensor (FREESTYLE (ten) days. 8 ROSS 10 DAY SENSOR) KitIndications: Type 1 diabetes mellitus without complication, Hypoglycemia, Insulin pump titration TRINTELLIX 10 mg Take 1 tablet by 0 Active Tab mouth daily. 8 Insulin [place], Use as directed. 1 Box 1 Active Disposable, (KARISHMA Once daily 9 PEN NEEDLE) 32 gauge x 5/32" NdleIndications: Type 1 diabetes mellitus with hyperglycemia Insulin Glargine inject 18 Units 33 mL 1 Active (LANTUS SOLOSTAR under the skin 2 9 U-100 INSULIN) (two) times 100 unit/mL (3 daily. mL) injectionIndicati ons: Type 1 diabetes mellitus with hyperglycemia glucagon 1 mg by 3 Each 1 Active (GLUCAGON Intramuscular 9 EMERGENCY KIT, route as needed HUMAN,) 1 mg (Hypoglycemia). injectionIndicati ons: Type 1 diabetes mellitus without complication, Hypoglycemia semaglutide inject 0.5 mg 3 mL 3 Acti ve (OZEMPIC) 0.25 mg under the skin 0 or 0.5 mg(2 weekly. mg/1.5 mL) PnIjIndications: Type 1 diabetes mellitus without complication insulin aspart Use up to 100 90 mL 0 A ctive RAPID (NOVOLOG units daily in 0 U-100 INSULIN insulin pump. ASPART) 100 Novolog medically unit/mL necessary injectionIndicati ons: Type 1 diabetes mellitus without complication, Insulin pump titration insulin aspart Use up to 100 90 mL 0 02/05/20 D iscontinued RAPID (NOVOLOG units daily in 0 20 (Reorder) U-100 INSULIN insulin pump. 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 Counseling for insulin pump 01/15/2017 documented as of this encounter (statuses as of 02/05/2020) Social History Tobacco Use Types Packs/Day Years [...] Description 04/20/2020 Office Visit Endocrinology Diabetes & Steven, Gopi murillo MD Metabolism [address] [place] [address] [phone] Health Maintenance Due Date Last Done Comments [...] Type 1 diabetes mellitus without complic ation Type I (juvenile type) diabetes mellitus without mention of complication, not stated as uncontrolled Insulin pump titration Fitting and adjustment of insulin pump documented in this encounter Insurance Payer Benefit Plan / Subscriber ID Effective Dates Phone Addre ss Type Group HIM [id number] 2019-Present PPO [id number] ACTED RACTED documented as of this encounter
--- OUTSIDE RECORDS SUMMARY | 2020-04-17 14:50 | XMS REPORT | Summary of Care ---
:1990 Author Organization [facility] Address [address] [place] [address] Care Team Providers Name Role Phone RiveroRosemary Primary Care Provider Reason for Visit Reason Comments Orders Encounter Details Date Type Department Care Team Description 01/28/2020 Telephone [facility] Endocrinology- Christina Harris MD Orders [address] [address] [address] [place] [address] [phone] Allergies Active Allergy Reactions Severity Noted Date Comments Insulin Lispro Hives 01/15/2017 documented as of this encounter (statuses as of 01/29/2020) Medications Medication Sig Dispensed Refills Start Date [...] by 0 06/20/2018 Active mouth daily. Insulin [place], Use as directed. 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
--- OUTSIDE RECORDS SUMMARY | 2020-04-17 14:50 | XMS REPORT | Summary of Care ---
:1990 Author Organization [facility] Address [address] [place] [address] Care Team Providers Name Role Phone MatRosemary Primary Care Provider Reason for Visit Reason Comments Forms Encounter Details Date Type Department Care Team Description 02/09/2020 Telephone [facility] Endocrinology- Christina Harris MD Forms [address] [address] [address] [place] [address] [phone] Allergies Active Allergy Reactions Severity Noted Date Comments Insulin Lispro Hives 01/15/2017 documented as of this encounter (statuses as of 02/10/2020) Medications Medication Sig Dispensed Refills Start Date [...] by 0 06/20/2018 Active mouth daily. Insulin [place], Use as directed. 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
--- OUTSIDE RECORDS SUMMARY | 2020-04-17 14:51 | XMS REPORT | Summary of Care ---
:1990 Author Organization [facility] Address [address] [place] [address] Care Team Providers Name Role Phone Mat Rosemary Primary Care Provider Encounter Details Date Type Department Care Team Description 02/11/2020 Orders Only [facility] Doctor Unassigned, No [address] [facility] Name [place] [id number] Allergies Active Allergy Reactions Severity Noted Date [...] by 0 06/20/2018 Active mouth daily. Insulin [place], Use as directed. 1 Box 1 09/09/2018 Active Disposable, (KARISHMA Once daily PEN NEEDLE) 32 gauge x 32" NdleIndications: Type 1 diabetes mellitus with hyperglycemia [...] Diabetes & Gopi Harris MD Metabolism [address] [place] [address] [phone] Health Maintenance Due Date Last Done Comments [...] Procedures Procedure Name Priority Date/Time Associated Diagnosis Comme nts DIABETES TESTING Routine 02/11/2020 12:01 AM CDT REPORTS documented in this encounter Results Not on filedocumented in this encounter Insurance Payer Benefit Plan / Subscriber ID Effective Dates Phone Addre ss Type Group HIM [id number] 2019-Present PPO [id number] ACTED RACTED documented as of this encounter
--- OUTSIDE RECORDS SUMMARY | 2020-04-17 14:51 | XMS REPORT | Summary of Care ---
:1990 Author Organization [facility] Address [address] [place] [address] Care Team Providers Name Role Phone Rosemary Rivero Primary Care Provider Reason for Visit Reason Comments Diabetes Pump Download Encounter Details Date Type Department Care Team Description 02/11/2020 Telephone [facility] Christina Harris MD Diabetes (Pump Download Endocrinology- [address] [place] [address] ) [address], [address] [address] [place], [place] [phone] [address] [phone] Allergies Active Allergy Reactions Severity Noted Date Comments Insulin Lispro Hives 01/15/2017 documented as of this encounter (statuses as of 02/18/2020) Medications Medication Sig Dispensed Refills Start Date [...] by 0 06/20/2018 Active mouth daily. Insulin [place], Use as directed. 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
--- OUTSIDE RECORDS SUMMARY | 2020-04-17 14:51 | XMS REPORT | Summary of Care ---
:1990 Author Organization [facility] Address [address] [place] [address] Care Team Providers Name Role Phone MatRosemary Primary Care Provider Reason for Visit Reason Comments Forms Encounter Details Date Type Department Care Team Description 02/17/2020 Telephone [facility] Endocrinology- Christina Harris MD Forms [address] [address] [address] [place] [address] [phone] Allergies Active Allergy Reactions Severity Noted Date Comments Insulin Lispro Hives 01/15/2017 documented as of this encounter (statuses as of 02/17/2020) Medications Medication Sig Dispensed Refills Start Date [...] by 0 06/20/2018 Active mouth daily. Insulin [place], Use as directed. 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
--- OUTSIDE RECORDS SUMMARY | 2020-04-17 14:51 | XMS REPORT | Summary of Care ---
:1990 Author Organization [facility] Address [address] [place] [address] Care Team Providers Name Role Phone MatRosemary Primary Care Provider Reason for Visit Reason Comments Refill Request Encounter Details Date Type Department Care Team Description 02/25/2020 Refill [facility] Endocrinology- Christina [place] [address] [address] [place] [address] [phone] Allergies Active Allergy Reactions Severity Noted Date Comments Insulin Lispro Hives 01/15/2017 documented as of this encounter (statuses as of 02/25/2020) Medications Medication Sig Dispensed Refills Start Date [...] by 0 06/20/2018 Active mouth daily. Insulin [place], Use as directed. 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 Counseling for insulin pump 01/15/2017 documented as of this encounter (statuses as of 02/25/2020) Social History Tobacco Use Types Packs/Day Years [...] Diabetes & Gopi Harris MD Metabolism [address] [place] [address] [phone] Health Maintenance Due Date Last Done Comments VARICELLA VACCINES (1 of 2 - 1990 2-dose childhood series) PNEUMOCOCCAL 0-64 YEARS COMBINED 1995 SERIES (1 of 1 - PPSV23) EYE EXAM 1999 LDL-C 1999 URINE MICROALBUMIN 1999 DTaP,Tdap,and Td Vaccines (1 - 2000 Tdap) Depression Screening 2001 PAP SMEAR 2010 HgA1C 03/22/2020 09/22/2019, 11/11/2018, 07/09/2018, Additional history exists INFLUENZA VACCINE (#1) 2020 FOOT EXAM 09/22/2020 09/22/2019, 09/22/2019, 09/09/2018, [...] Group HIM AMBETTER FROM HIM AMBETTER FROM [id number] 2019-Present [facility] documented as of this encounter
[2020-04-17 15:34] LABS: Blood Gas Oxyhemoglobin 95.2 % (94-97)
[2020-04-17 15:41] LABS: Absolute Lymphocytes (CBC) 0.9 K/uL (0.7-4.9); Basophils % 0.2 % (0-1.3); Lymphocytes % 11.2 % (15.3-44.8); MPV 9.8 fL (7.6-11.3); RBC Red Blood Cell Count 4.03 M/uL (3.86-4.86)
[2020-04-17] MEDS ORDERED: NA CHLORIDE 0.9% 2,000 ML ONE (15:56)
[2020-04-17] MEDS ORDERED: INSULIN -REGULAR HUMAN 50 UNIT/0.5 ML ML ONE (15:56)
[2020-04-17 16:00] LABS: ALT/SGPT 16 U/L (12-78); AST/SGOT 13 U/L (15-37); Albumin 3.1 g/dL (3.4-5.0); Alkaline Phosphatase 70 U/L (45-117); BUN Blood Urea Nitrogen 17 mg/dL (7-18); Bicarbonate 19 mmol/L (21-32); Bilirubin Direct 0.2 mg/dL (0-0.2); Bilirubin Total 0.6 mg/dL (0.2-1.0); Lipase 40 U/L (73-393); Potassium 4.4 mmol/L (3.5-5.1); Protein, Total 6.7 g/dL (6.4-8.2); Sodium Level 130 mmol/L (136-145)
[2020-04-17 16:02] LABS: Glucose Level 748 mg/dL (74-106)
[2020-04-17] MEDS ORDERED: NA CHLORIDE 0.9% 1,000 ML IV ONE (16:16)
--- NOTE | 2020-04-17 16:16 | ER ---
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 Coronavirus screen: Client denies travel out of the [place] in the last 14 days. nausea, vomiting. At this time, the client does not indicate any symptoms associated with coronavirus-19. Ebola Screen: No symptoms or risks identified at this time. Initial Sepsis Screen: Does the patient meet any 2 criteria? No. Patient's initial sepsis screen is negative. Does the patient have a suspected source of infection? No. Patient's initial sepsis screen is negative. Risk Assessment: Do you want to hurt yourself or someone else? Patient reports no desire to harm self or others. Onset of symptoms was April 16, 2020. Care prior to arrival: None. Transition of care: patient was not received from another setting of care. 14:55 Method Of Arrival: Ambulatory [facility] 14:55 Acuity: LO 2 7 Triage Assessment: 15:05 General: Appears in no apparent distress. comfortable, Behavior is cooperative, bp appropriate for age, anxious. Pain: Denies pain. EENT: No deficits noted. Neuro: Level of Consciousness is awake, alert, obeys commands, Oriented to person, place, time, situation, Appropriate for age. Cardiovascular: Rhythm is sinus tachycardia. Respiratory: No deficits noted. GI: Reports nausea, vomiting. : No signs and/or symptoms were reported regarding the genitourinary system. Derm: No deficits noted. Musculoskeletal: No deficits noted. [employer]: 15:02 LMP 04/11/2020 7 Historical: - Allergies: 15:02 Humalog; jl7 - Home Meds: 15:02 Latuda 40 mg Oral tab 1 tab once daily for Depression associated with Bipolar Disorder jl7 [Active]; Novolog 100 unit/mL Sub-Q soln [Active]; Trintellix Oral [Active]; - PMHx: 15:02 Bipolar disorder; Depression; Diabetes - IDDM; Insulin pump; jl7 - PSHx: 15:02 None; jl7 - Immunization history:: Adult Immunizations unknown. - Social history:: Smoking status: Patient denies any tobacco usage or history of. Screenin:05 Abuse screen: Denies threats or abuse. Denies injuries from another. Nutritional bp screening: No deficits noted. Tuberculosis screening: No symptoms or risk factors identified. Fall Risk None identified. Assessment: 15:05 General: SEE TRIAGE NOTE. GI: Abdomen is non-distended. bp 16:00 Reassessment: ADMIT INITIATED. VS STABLE ON MONITOR. bp 18:00 Reassessment: ALL CURRENT ORDERS COMPLETED, ADMIT IN PROCESS. bp Vital Signs: 14:55 BP 107 / 69; Pulse 114; Resp 19 S; Temp 98.7(O); Pulse Ox 100% on R/A; Weight 88.45 kg jl7 (R); Height 5 ft. 10 in. (177.80 cm) (R); Pain 10/10; 16:00 BP 105 / 73; Pulse 92; Resp 16; Pulse Ox 100% ; bp 17:00 BP 112 / 78; Pulse 79; Resp 16; Pulse Ox 100% ; rb1 18:00 BP 115 / 79; Pulse 71; Resp 17; Pulse Ox 100% ; bp 18:30 BP 103 / 74; Pulse 70; Resp 17; Pulse Ox 100% ; rb1 14:55 Body Mass Index 27.98 (88.45 kg, 177.80 cm) jl7 ED Course: 14:50 Patient arrived in ED. as 15:01 Triage completed. jl7 15:02 Arm band placed on right wrist. jl7 15:05 Patient has correct armband on for positive identification. Bed in low position. Call bp light in reach. Side rails up X2. 15:06 Dell Garg PA is PHCP. malia 15:06 Frankie Mills MD is Attending Physician. [facility] 15:23 Yang Ya, JOSE is Primary Nurse. bp 15:31 Inserted saline lock: 20 gauge in right antecubital area, using aseptic technique. kj1 Blood collected. 15:33 Lab(s) recollected, by me, sent to lab. kj1 16:02 Notified Nurse Practitioner and/or Physician [employer]ic Strength Inspector of a critical lab result(s), aa5 Glucose 748. 16:15 Toni Erwin MD is Hospitalizing Provider. [facility] 19:30 Inserted saline lock: 20 gauge in left antecubital area, using aseptic technique. Blood mg2 collected. by JOSE Powell. 19:48 No provider procedures requiring assistance completed. Patient admitted, IV remains in mg2 place. Administered Medications: 15:45 Drug: NS 0.9% 3000 ml Route: IV; Rate: 1 bolus; Site: left antecubital; bp 19:00 Follow up: Response: No adverse reaction; IV Status: Completed infusion; IV Intake: mg2 3000ml 15:45 Drug: Zofran (Ondansetron) 4 mg Route: IVP; Site: left antecubital; bp 22:00 Follow up: Response: No adverse reaction mg2 15:45 Drug: Insulin Regular Human 10 units {Co-Signature: rb1 (Yesenia Vasquez RN).} Route: bp IVP; Site: right antecubital; 21:59 Follow up: Response: No adverse reaction; Blood sugar is lowered mg2 Intake: 19:00 IV: 3000ml; Total: 3000ml. mg2 Outcome: 16:15 Decision to Hospitalize by Provider. [facility] 19:48 Admitted to ER Hold. Please see [facility] for further documentation. mg2 19:49 Condition: good mg2 22:29 Admitted to Med/surg accompanied by tech, via wheelchair, room 225, with chart, Report mg2 called to JOSE Zuleta 22:29 Condition: good 22:29 Instructed on the need for admit, Demonstrated understanding of instructions. 22:36 Patient left the ED. mg2 Signatures: Dell Garg PA PA Lisa Kee Audri, RN RN aa5 Yesenia Vasquez RN RN rb1 Azra Gonzalez RN RN mick7 Yang Ya RN RN bp Todd Campuzano RN RN mg2 Nirmala Franklin kj1 Yesenia Vasquez RN rb1
--- NOTE | 2020-04-17 16:16 | EDPHYS ---
Physician Documentation [facility] Name: Teetee Hannah Age: 29 yrs Sex: Female : 1990 Arrival Date: 04/17/2020 Time: 14:50 Bed 8 Private MD: ED Physician Frankie Mills HPI: 04/17 15:23 This 29 yrs old Female presents to ER via Ambulatory with complaints of High jmm Blood Sugar, Vomiting. 15:23 Onset: The symptoms/episode began/occurred this morning. Associated signs and symptoms: jmm Pertinent positives: vomiting. This is a 29 year old female with a history of DM that presents to the ED with complaints of nausea, vomiting beginning this morning. Home BGL was elevated. Unable to control at home. . 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 - Social history:: Smoking status: Patient denies any tobacco usage or history of. ROS: 15:23 Constitutional: Negative for fever, chills, and weight loss, Cardiovascular: Negative jmm for chest pain, palpitations, and edema, Respiratory: Negative for shortness of breath, cough, wheezing, and pleuritic chest pain. 15:23 Abdomen/GI: Positive for vomiting. 15:23 All other systems are negative. Exam: 15:23 Constitutional: This is a well developed, well nourished patient who is awake, alert, jmm and in no acute distress. Head/Face: atraumatic. Eyes: EOMI, no conjunctival erythema appreciated ENT: Moist Mucus Membranes Neck: Trachea midline, Supple Chest/axilla: Normal chest wall appearance and motion. Cardiovascular: Regular rate and rhythm. No edema appreciated Respiratory: Normal respirations, no respiratory distress appreciated Abdomen/GI: Non distended, soft Back: Normal ROM Skin: General appearance color normal MS/ Extremity: Moves all extremities, no obvious deformities appreciated, no edema noted to the lower extremities Neuro: Awake and alert, normal gait Psych: Behavior is normal, Mood is normal, Patient is cooperative and pleasant Vital Signs: 14:55 BP 107 / 69; Pulse 114; Resp 19 S; Temp 98.7(O); Pulse Ox 100% on R/A; Weight 88.45 kg jl7 (R); Height 5 ft. 10 in. (177.80 cm) (R); Pain 10/10; 16:00 BP 105 / 73; Pulse 92; Resp 16; Pulse Ox 100% ; bp 17:00 BP 112 / 78; Pulse 79; Resp 16; Pulse Ox 100% ; rb1 18:00 BP 115 / 79; Pulse 71; Resp 17; Pulse Ox 100% ; bp 18:30 BP 103 / 74; Pulse 70; Resp 17; Pulse Ox 100% ; rb1 14:55 Body Mass Index 27.98 (88.45 kg, 177.80 cm) jl7 MDM: 15:15 Patient medically screened. [facility] 16:14 Data reviewed: vital signs, nurses notes. Counseling: I had a detailed discussion with colby the patient and/or guardian regarding: the historical points, exam findings, and any diagnostic results supporting the discharge/admit diagnosis, lab results. ED course: I discussed the patient with Dr. Erwin whom accepted admission. . 04/17 15:12 Order name: Glucose, Ancillary Testing; Complete Time: 15:18 [facility] 04/17 15:19 Order name: Basic Metabolic Panel; Complete Time: 16:03 [facility] 04/17 15:19 Order name: CBC with Diff; Complete Time: 16:00 [facility] 04/17 15:19 Order name: Hepatic Function; Complete Time: 16:03 [facility] 04/17 15:19 Order name: Lipase; Complete Time: 16:03 [facility] 04/17 15:19 Order name: ABG; Complete Time: 16:00 [facility] 04/17 15:19 Order name: Ketone, Serum; Complete Time: 16:03 [facility] 04/17 16:13 Order name: COVID-19 [facility] 04/17 16:21 Order name: Acetone Level [facility] 04/17 16:21 Order name: Acetone Level; Complete Time: 20:42 [facility] 04/17 16:21 Order name: Acetone Level [facility] 04/17 16:21 Order name: Acetone Level EDMS 04/17 16:21 Order name: CBC with Automated Diff EDMS 04/17 16:21 Order name: CBC with Automated Diff EDMS 04/17 16:21 Order name: CBC with Automated Diff EDMS 04/17 16:21 Order name: CBC with Automated Diff EDMS 04/17 16:21 Order name: Magnesium EDMS 04/17 16:21 Order name: Magnesium EDMS 04/17 16:21 Order name: Magnesium EDMS 04/17 16:21 Order name: Magnesium EDMS 04/17 16:28 Order name: Urine Dipstick--Ancillary (enter results) mt 04/17 16:30 Order name: Urine --Ancillary (enter results) mt 04/17 16:41 Order name: Urine Dipstick-Ancillary; Complete Time: 16:49 EDMS 04/17 16:41 Order name: Urine --Ancillary; Complete Time: 16:49 EDMS 04/17 17:07 Order name: Glucose, Ancillary Testing; Complete Time: 17:13 [facility] 04/17 19:42 Order name: BMP mg2 04/17 19:51 Order name: Glucose, Ancillary Testing; Complete Time: 19:55 EDMS 04/17 20:18 Order name: Basic Metabolic Panel; Complete Time: 20:42 [facility] 04/17 22:35 Order name: Glucose, Ancillary Testing EDDE 04/17 15:19 Order name: IV Saline Lock; Complete Time: 15:58 [facility] 04/17 15:19 Order name: Labs collected and sent; Complete Time: 15:58 [facility] 04/17 15:19 Order name: Urine Dipstick-Ancillary (obtain specimen); Complete Time: 15:56 [facility] 04/17 16:21 Order name: CONS Pharmacy Consult EDDE 04/17 16:21 Order name: Clear Liquid EDMS Administered Medications: 15:45 Drug: NS 0.9% 3000 ml Route: IV; Rate: 1 bolus; Site: left antecubital; bp 19:00 Follow up: Response: No adverse reaction; IV Status: Completed infusion; IV Intake: mg2 3000ml 15:45 Drug: Zofran (Ondansetron) 4 mg Route: IVP; Site: left antecubital; bp 22:00 Follow up: Response: No adverse reaction mg2 15:45 Drug: Insulin Regular Human 10 units {Co-Signature: rb1 (Yesenia Vasquez RN).} Route: bp IVP; Site: right antecubital; 21:59 Follow up: Response: No adverse reaction; Blood sugar is lowered mg2 Disposition: 04/18 11:58 Co-signature as Attending Physician, Frankie Mills MD I agree with the assessment and nima plan of care. Disposition: 04/17/20 16:15 Hospitalization ordered by Toni Erwin for Inpatient Admission. Preliminary diagnosis is Type 1 diabetes mellitus with ketoacidosis. - Bed requested for Telemetry/MedSurg (Inpatient). - Status is Inpatient Admission. mg2 - Condition is Stable. - Problem is an acute exacerbation. - Symptoms are unchanged. Signatures: Dispatcher [employer] [facility] Frankie Mills MD MD cha Mickail, Joel, PA PA jmm Garcia, Cindy, RN RN cg Azra Gonzalez RN RN jl7 Yang Ya RN RN Todd Campuzano RN RN mg2 Yesenia Vasquez RN rb1 Corrections: (The following items were deleted from the chart) 04/17 15:37 15:07 GLUCOSE+C.LAB.BRZ ordered. [facility] 19:09 16:15 Hospitalization Ordered by Toni Erwin MD for Inpatient Admission. cg Preliminary diagnosis is Type 1 diabetes mellitus with ketoacidosis. Bed requested for Telemetry/MedSurg (Inpatient). Status is Inpatient Admission. Condition is Stable. Problem is an acute exacerbation. Symptoms are unchanged. [facility] 22:14 19:09 04/17/2020 16:15 Hospitalization Ordered by Toni Erwin MD for Inpatient cg Admission. Preliminary diagnosis is Type 1 diabetes mellitus with ketoacidosis. Bed requested for [facility] ER HOLD. Status is Inpatient Admission. Condition is Stable. Problem is an acute exacerbation. Symptoms are unchanged. 22:36 22:14 04/17/2020 16:15 Hospitalization Ordered by Toni Erwin MD for Inpatient mg2 Admission. Preliminary diagnosis is Type 1 diabetes mellitus with ketoacidosis. Bed requested for Telemetry/MedSurg (Inpatient). Status is Inpatient Admission. Condition is Stable. Problem is an acute exacerbation. Symptoms are unchanged.
[2020-04-17] MEDS ORDERED: ONDANSETRON 4 MG/2 ML VIAL ONE (16:18)
--- NOTE | 2020-04-17 16:28 | P.HP ---
Certification for Inpatient Patient admitted to: Inpatient With expected LOS: >2 Midnights Patient will require the following post-hospital care: None Practitioner: I am a practitioner with admitting privileges, knowledge of patient current condition, hospital course, and medical plan of care. Services: Services provided to patient in accordance with Admission requirements found in Title 42 Section 412.3 of the Code of Federal Regulations Patient History Date of Service: 04/18/20 (Hospitalist) Reason for admission: Nausea vomiting DKA History of Present Illness: Pt is 29 yrs IDDM AW sudden onset of nausea and vomiting and BS >500. PT is insulin. Denies fever or UTI symptoms. LAst DKA 2 yrs ago. Pt has insulin pump. No obvious triggerign factor for DKA Allergies insulin lispro [From Humalog] Allergy (Verified 04/17/20 23:08) Hives/Rash Humalog U-100 Insul Allergy (Uncoded 04/17/20 23:08) Hives/Rash Humalog U-100 Insulin Allergy (Uncoded 04/17/20 23:08) Hives/Rash Home Medications: Insulin Aspart [Novolog*] 0 units IM SEECOM 01/09/15 Lurasidone HCl [Latuda] 80 mg PO BEDTIME 09/11/17 Vortioxetine Hydrobromide [Trintellix] 5 mg PO BEDTIME 03/12/18 - Past Medical/Surgical History Diabetic: Yes -: IDDM -: depression -: suicidal ideation - drug OD -: bipolar -: Gastric sleeve - Family History Mother -: Other (see notes) Notes: ETOH abuse Brother -: Other (see notes) Notes: Drug Addict Father -: Heart disease, Hypertension - Social History Alcohol use: Yes CD- Drugs: No Caffeine use: No Physical Examination - Vital Signs Temperature: 98.7 F Blood Pressure: 107/69 Pulse: 114 Respirations: 14 Pulse Ox (%): 100 - Physical Exam General: Alert, In no apparent distress, Oriented x3 Neck: Supple Respiratory: Clear to auscultation bilaterally Cardiovascular: No edema, Regular rate/rhythm, Normal S1 S2 Gastrointestinal: Normal bowel sounds, Soft and benign Musculoskeletal: No clubbing, No swelling Integumentary: No breakdown Neurological: Normal speech, Normal strength at 5/5 x4 extr, Cranial nerves 3-12 intact - Studies Laboratory Data (last 24 hrs) 04/17/20 15:31: WBC 7.8, Hgb 12.6, Hct 39.0, Plt Count 236 04/17/20 15:31: Sodium 130 L, Potassium 4.4, BUN 17, Creatinine 1.42 H, Glucose 748 H*, Total Bilirubin 0.6, AST 13 L, ALT 16, Alkaline Phosphatase 70, Lipase 40 L 04/17/20 15:06: Glucose Cancelled Assessment and Plan - Problems (Diagnosis) (1) DKA (diabetic ketoacidoses) Onset Date: 09/11/17 Current Visit: No Status: Acute Plan: Age 29 AW DKA and renal insufficency. Mild DKA. Admit for IV fluid and insulin. LAbs reviewed. COVID test pending NE of sepsis . Urinary acetone pos Qualifiers: Diabetes mellitus type: type 1 - Advance Directives Does patient have a Living Will: No Does patient have a Durable POA for Healthcare: No
[2020-04-17] MEDS ORDERED: INSULIN -REGULAR HUMAN 100 UNIT in NA CHLORIDE 0.9% 100 ML IV SCH (16:30)
[2020-04-17 16:40] LABS: Urine Blood 2+ (NEG); Urine Glucose 2+ (NEG); Urine Protein NEGATIVE (NEG)
[2020-04-17] MEDS ORDERED: D5 0.45 NS 1,000 ML IV SCH (17:00)
[2020-04-17] MEDS: NA CHLORIDE 0.9% 1,000 ML IV SCH (17:00)
[2020-04-17 20:09] LABS: Potassium 4.1 mmol/L (3.5-5.1)
[2020-04-17] MEDS ORDERED: HOME MED 1 EA UNK (Vortioxetine Hydrobromide [Trintellix] 10 MG) PO SCH (21:00)
[2020-04-17] MEDS ORDERED: LURASIDONE HCL 40 MG PO SCH (21:00)
[2020-04-17] MEDS ORDERED: NA CHLORIDE 0.9% 1,000 ML ONE (21:51)
[2020-04-17 22:19] VITALS: BMI 27.8
[2020-04-18] MEDS: NA CHLORIDE 0.9% 1,000 ML IV SCH (06:20)
[2020-04-18 06:25] LABS: Basophils % 0.5 % (0-1.3); Hematocrit 35.7 % (36.0-45.0); Lymphocytes % 40.9 % (15.3-44.8); MPV 9.6 fL (7.6-11.3); RBC Red Blood Cell Count 3.87 M/uL (3.86-4.86)
[2020-04-18 06:33] LABS: BUN Blood Urea Nitrogen 8 mg/dL (7-18); Bicarbonate 27 mmol/L (21-32); Glucose Level 177 mg/dL (74-106); Potassium 4.1 mmol/L (3.5-5.1); Sodium Level 143 mmol/L (136-145)
[2020-04-18] MEDS ORDERED: ENOXAPARIN 40 MG/0.4 ML SQ SCH (09:00)
[2020-04-18 09:12] VITALS: O2SAT 97
[2020-04-18] MEDS ORDERED: PNEUMOCOCCAL VACCINE 0.5 ML IMVAC ONE (11:00)
--- NOTE | 2020-04-18 11:57 | P.DS ---
Discharge Date: 04/18/20 Disposition: ROUTINE DISCHARGE Discharge Condition: GOOD Reason for Admission: Nausea; vomiting; DKA Brief History of Present Illness: Patient is a 29yo who was admitted to the hospital with DKA. Patient was started on insulin drip and monitored. Patient has done well and AG has closed. Patient will be admitted for further evaluation. Hospital Course: Patient is tolerated diet and resumed long acting insulin. At this time patient is stable for DC home Vital Signs/Physical Exam: Temp Pulse Resp BP Pulse Ox 97.0 F 76 18 121/72 97 04/18/20 08:00 04/18/20 08:00 04/18/20 08:00 04/18/20 08:00 04/18/20 08:00 General: Alert, In no apparent distress, Oriented x3 Laboratory Data at Discharge: WBC 4.9 K/uL (4.3-10.9) D 04/18/20 05:34 Hgb 12.1 g/dL (12.0-15.0) 04/18/20 05:34 Hct 35.7 % (36.0-45.0) L 04/18/20 05:34 Plt Count 233 K/uL (152-406) 04/18/20 05:34 Sodium 143 mmol/L (136-145) 04/18/20 05:34 Potassium 4.1 mmol/L (3.5-5.1) 04/18/20 05:34 BUN 8 mg/dL (7-18) 04/18/20 05:34 Creatinine 0.69 mg/dL (0.55-1.3) 04/18/20 05:34 Glucose 177 mg/dL (74-106) H 04/18/20 05:34 Magnesium 2.0 mg/dL (1.8-2.4) 04/18/20 05:34 Total Bilirubin 0.6 mg/dL (0.2-1.0) 04/17/20 15:31 AST 13 U/L (15-37) L 04/17/20 15:31 ALT 16 U/L (12-78) 04/17/20 15:31 Alkaline Phosphatase 70 U/L (45-117) 04/17/20 15:31 Lipase 40 U/L (73-393) L 04/17/20 15:31 Home Medications: Lurasidone HCl [Latuda] 80 mg PO BEDTIME 09/11/17 Vortioxetine Hydrobromide [Trintellix] 5 mg PO BEDTIME 03/12/18 Insulin 70/30 NPH/Reg Human [Novolin 70/30*] 20 unit SQ BID #2 vial 04/18/20 New Medications: Insulin 70/30 NPH/Reg Human [Novolin 70/30*] 20 unit SQ BID #2 vial Patient Discharge Instructions: OK TO DC IV AND DC HOME. FOLLOW-UP WITH PRIMARY CARE PROVIDER IN 1-2 WEEKS. RETURN TO THE ER IF SYMPTOMS WORSENS. CALL or TEXT DR. WAKEFIELD AT [phone] IF ANY QUESTIONS REGARDING HOSPITAL STAY. PLEASE CALL THE FLOOR AT [phone] IF ANY MEDICATION OR NURSING QUESTIONS. Diet: Regular Activity: Fall precautions Time spent managing pt's care (in minutes): 25
[2020-04-18 14:08] VITALS: BP 151/74; TEMP 97.3
== END 2020-04-18 13:09 | disposition home or self-care (01) | DRG 639 ==
LOC: ER 14:48 → ERHOLD 16:20 → 2ND 22:33
PROVIDERS: ADMIT Internal Medicine Sleep Medicine; ATTEND Hospitalist
DX: E10.10 Type 1 diabetes mellitus with ketoacidosis without coma (principal); F32.9 Major depressive disorder, single episode, unspecified; Z79.4 Long term (current) use of insulin; Z96.41 Presence of insulin pump (external) (internal); Z98.84 Bariatric surgery status
CPT/HCPCS: 36415; 80048; 80076; 81003; 81025; 82010; 82805; 82947; 83690; 83735; 85025; 99285; J1650; J2405; J7030; U0002

== ENCOUNTER 2023-02-03 21:34 | Emergency (ER) | payer OTHER, SELFPAY ==
--- OUTSIDE RECORDS SUMMARY | 2023-02-03 21:37 | XMS REPORT | Continuity of Care Document ---
:1990 Author Organization [facility] t Address [address] [facility]. [address] [place] [address] Care Team Providers Name Role Phone STEF GOMEZ Rosemary Primary Care Physician Unavailable [email or web address] Attending Clinician Unavailable Danieben_T Attending Clinician Unavailable SARAH LANDIN Attending Clinician Unavailable Sarah Landin MD Attending Clinician Nurse, Ang Endo/Diab Attending Clinician Unavailable Doctor Unassigned, Morganza Attending Clinician Unavailable MARIAM MONDRAGON Attending Clinician Unavailable Ramonita Davila MD Attending Clinician Mariam Mondragon MD Attending Clinician Ele Admitting Clinician Unavailable RAMONITA DAVILA Admitting Clinician Unavailable Payers Payer Name Policy Type Policy Number Effective Date Expiration Date S andry [employer] P [id number] 2012 INSURANCE COMPANY 00:00:00 [place] [id number] 2020 00:00:00 [id number] ACTED 00:00:00 CIGNA II [id number] 2017 00:00:00 Problems Condition Condition Condition Status Onset Resolution Last Treating Co mments Source Name Details Category Date Date Treatment Clinician Date Body mass Body Mass Problem Active [facility] ladi index Index 6-10 Family 25-29 - 25-29 - 00:00: Practic overweight Overweight 00 e Skin Skin Problem Active [facility] lesion Lesion 6-10 Family 00:00: Practic 00 e Type 1 Type 1 Problem Active [facility] diabetes Diabetes 4-09 Family mellitus Mellitus 00:00: Practi c 00 e Hypoglycem Hypoglycem Problem Active [facility] 409 Family 00:00: Practic 00 e Foot Foot Problem Active [facility] callus Callus 409 Family 00:00: Practic 00 e Allergies, Adverse Reactions, Alerts Allergy Allergy Status Severity Reaction(s) Onset Inactive Treating Comm ents Source Name Type Date Date Clinician Namenda Propensi Active - Oral ty to 5-31 adverse 00:00: reaction 00 to drug name Propensi Active ty to 5-16 adverse 00:00: reaction 00 to drug HumaLOG Propensi Active Mix ty to 3-08 50/50 adverse 00:00: KwikPen reaction 00 - to drug Subcutan eous Humalog Propensi Active Mix ty to 1-26 adverse 00:00: reaction 00 to drug INSULIN DRUG Active [facility] LISPRO INGREDI 5-23 ity of 00:00: [address] Branch Social History Smoking Status Start Date Stop Date Source Never Smoker [facility] Family P natasha Medications Ordered Filled Start Stop Current Ordering Indication Dosage Frequency Signature Comments Components Source Medication Medication Date Date Medication? Clinician (SIG) Name Name TAKE 08/27 TO 2021-08 No unit 1 TABLET AT 2-15 BEDTIME 00:00: NEEDED FOR 00 SLEEP. TAKE ONE 2021-08 No 20 (1) 2-15 TABLET(S) 00:00: BY MOUTH AT 00 BEDTIME. INJECT 2021-08 No BELOW THE 2-15 SKIN 00:00: DIRECTED ON 00 A SLIDING SCALE .MAX DOSE IS 25 UNITS. INSTILL ONE 2021-08 No SPRAY IN 2-15 EACH 00:00: NOSTRIL 00 TWICE A DAY. Dose No 20 Unknown 5- 00:00: 00 Dose No Unknown 5-10 00:00: 00 Dose No Unknown 5-10 00:00: 00 Dose 2022-0 No Unknown 5-10 00:00: 00 Dose 2022-0 No Unknown 5-10 00:00: 00 TAKE 1 2022-0 No TABLET 4-06 DAILY. 00:00: 00 Dose 2022-0 No Unknown 3-18 00:00: 00 Dose 2022-0 No Unknown 3-18 00:00: 00 Dose 2022-0 No Unknown 3-18 00:00: 00 Dose 2022-0 No Unknown 3-18 00:00: 00 Dose 2022-0 No Unknown 3-18 00:00: 00 Dose 2022-0 No Unknown 3-18 00:00: 00 Dose 2022-0 No Unknown 3-18 00:00: 00 Dose 2022-0 No Unknown 3-18 00:00: 00 Dose 2022-0 No Unknown 3-18 00:00: 00 Dose 2022-0 No Unknown 3-18 00:00: 00 Dose 2022-0 No Unknown 3-18 00:00: 00 Dose 2022-0 No Unknown 3-18 00:00: 00 Dose 2022-0 No Unknown 3-18 00:00: 00 Dose 2022-0 No Unknown 3-17 00:00: 00 Dose 2022-0 No Unknown 3-17 00:00: 00 Dose 2022-0 No Unknown 3-17 00:00: 00 Dose 2022-0 No Unknown 3-17 00:00: 00 Dose 2022-0 No Unknown 3-17 00:00: 00 Dose 2022-0 No Unknown 3-17 00:00: 00 Dose 2022-0 No Unknown 3-17 00:00: 00 Dose 2022-0 No Unknown 3-17 00:00: 00 Dose 2022-0 No Unknown 3-17 00:00: 00 Dose 2022-0 No Unknown 3-17 00:00: 00 Dose 2022-0 No Unknown 3-17 00:00: 00 Dose 2022-0 No Unknown 3-17 00:00: 00 Dose 2022-0 No Unknown 3-17 00:00: 00 Dose 2022-0 No Unknown 3-17 00:00: 00 Dose 2022-0 No Unknown 3-08 00:00: 00 Dose 2022-0 No Unknown 3-07 00:00: 00 Dose 2022-0 No Unknown 1-08 00:00: 00 Dose 2022-0 No Unknown 1-08 00:00: 00 Humalog 2020-1 No unit/mL U-100 2-25 Insulin 100 00:00: unit/mL 00 subcutaneou s solution Humalog 2020-1 No unit/mL U-100 2-25 Insulin 100 00:00: unit/mL 00 subcutaneou s solution Humalog 2020-1 No unit/mL U-100 1-23 Insulin 100 00:00: unit/mL 00 subcutaneou s solution Humalog 2020-1 No unit/mL U-100 0-31 Insulin 100 00:00: unit/mL 00 subcutaneou s solution Humalog 2020-1 No unit/mL U-100 0-23 Insulin 100 00:00: unit/mL 00 subcutaneou s solution Humalog 2020-1 No unit/mL U-100 0-22 Insulin 100 00:00: unit/mL 00 subcutaneou s solution Humalog 2020-1 No unit/mL U-100 0-08 Insulin 100 00:00: unit/mL 00 subcutaneou s solution Humalog 2020-1 No unit/mL U-100 0-08 Insulin 100 00:00: unit/mL 00 subcutaneou s solution Humalog 2020-1 No unit/mL U-100 0-08 Insulin 100 00:00: unit/mL 00 subcutaneou s solution Abilify 20 2020-0 No 1mg mg tablet 05-04 00:00: 00 Humalog 2021-0 No unit/mL U-100 8-19 Insulin 100 00:00: unit/mL 00 subcutaneou s solution Humalog 2020-0 No unit/mL U-100 8-19 Insulin 100 00:00: unit/mL 00 subcutaneou s solution Abilify 15 2020-0 No 1mg mg tablet 04-13 00:00: 00 Abilify 15 1-0 No 1mg mg tablet 04-13 00:00: 00 Toujeo 2020-1 No (1.5 SoloStar 2-30 mL) U-300 00:00: Insulin 300 00 unit/mL (1.5 mL) subcutaneou s pen Toujeo 2020-1 No (1.5 SoloStar 2-30 mL) U-300 00:00: Insulin 300 00 unit/mL (1.5 mL) subcutaneou s pen Novolog 2020-1 No (3 mL) Flexpen 2-30 U-100 00:00: Insulin 00 aspart 100 unit/mL (3 mL) subcutaneou s Toujeo 2020-1 No (1.5 SoloStar 1-11 mL) U-300 00:00: Insulin 300 00 unit/mL (1.5 mL) subcutaneou s pen Novolog 2020-1 No (3 mL) Flexpen 1-11 U-100 00:00: Insulin 00 aspart 100 unit/mL (3 mL) subcutaneou s Trintellix 2020-1 No 1mg 10 mg 1-04 tablet 00:00: 00 Latuda 80 2020-1 No 1mg mg tablet 1-04 00:00: 00 Trintellix 2020-1 No 1mg 10 mg 0-19 tablet 00:00: 00 Abilify 5 2019-1 No 1mg mg tablet 0-19 00:00: 00 Latuda 80 2020-0 No 1mg mg tablet 8-28 00:00: 00 Trintellix 2020-0 No 1mg 5 mg tablet 8-28 00:00: 00 Toujeo 2020-0 No (1.5 SoloStar 8-28 mL) U-300 00:00: Insulin 300 00 unit/mL (1.5 mL) subcutaneou s pen Novolog 2020-0 No 1unit/m U-100 8-28 L Insulin 00:00: aspart 100 00 unit/mL subcutaneou s solution Novolog 2020-0 No (3 mL) Flexpen 8-28 U-100 00:00: Insulin 00 aspart 100 unit/mL (3 mL) subcutaneou s FreeStyle FreeStyle No FreeStyle [place] [facility] 14 Carmel 14 Carmel 14 Fam haim Day Sensor Day Sensor Day Sensor Practic kit USE kit USE kit USE e DIRECTED DIRECTED DIRECTED EVERY 14 EVERY 14 EVERY 14 DAYS. DAYS. DAYS. Humalog Humalog No Humalog Villag e U-100 U-100 U-100 Family Insulin 100 Insulin 100 Insulin Practic unit/mL unit/mL 100 e subcutaneou subcutaneou unit/mL s solution s solution subcutaneo INJECT 78 INJECT 78 us UNITS EVERY UNITS EVERY solution DAY BY DAY BY INJECT 78 SUBCUTANEOU SUBCUTANEOU UNITS S ROUTE S ROUTE EVERY DAY DIRECTED. DIRECTED. BY SUBCUTANEO US ROUTE DIRECTED. methylpheni methylpheni No methylphen [place] date ER 36 date ER 36 idate ER Family mg mg 36 mg Practic tablet,exte tablet,exte tablet,ext e nded nded ended release 24 release 24 release 24 hr hr hr Omnipod Omnipod No Omnipod Villag e Dash 5 Pack Dash 5 Pack Dash 5 Family Insulin Pod Insulin Pod Pack P ractic subcutaneou subcutaneou Insulin e s cartridge s cartridge Pod Inject 1 Inject 1 subcutaneo cartridge cartridge us every 72 every 72 cartridge hours by hours by Inject 1 subcutaneou subcutaneou cartridge s route as s route as every 72 directed. directed. hours by subcutaneo us route as directed. Trintellix Trintellix No Trintellix Village 5 mg tablet 5 mg tablet 5 mg F amily TAKE 1 TAKE 1 tablet Practic TABLET BY TABLET BY TAKE 1 e MOUTH EVERY MOUTH EVERY TABLET BY DAY FOR 7 DAY FOR 7 MOUTH DAYS DAYS EVERY DAY FOR 7 DAYS Unifine Unifine No Unifine Villag e Pentips Pentips Pentips Family Plus 31 Plus 31 Plus 31 Practi c gauge x gauge x gauge x e 316" 16" 11/08" needle USE needle USE needle USE FOUR TIMES FOUR TIMES FOUR TIMES A DAY A DAY A DAY DIRECTED. DIRECTED. DIRECTED. Abilify 10 Abilify 10 No 1 Q1D Abilify 10 Village mg tablet mg tablet mg tablet Family Take 1 Take 1 Take 1 Practic tablet tablet tablet e every day every day every day by oral by oral by oral route. route. route. Baqsimi 3 Baqsimi 3 No Baqsimi 3 Village mg/actuatio mg/actuatio mg/actuati Family n nasal n nasal on nasal Pract ic spray spray spray e INSTILL ONE INSTILL ONE INSTILL (1) (1) ONE (1) SPRAY(S) SPRAY(S) SPRAY(S) INTO EACH INTO EACH INTO EACH NOSTRIL NOSTRIL NOSTRIL NEEDED. NEEDED. NEEDED. Immunizations Ordered Immunization Filled Immunization Date Status Commen ts Source Name Name COVID-19, mRNA, COVID-19, mRNA, 2020-11-30 Completed Vill age Family LNP-S, PF, 100 LNP-S, PF, 100 00:00:00 Practi ce mcg/0.5 mL dose mcg/0.5 mL dose Moderna COVID-19 2020-11-30 Completed Vaccine 00:00:00 Moderna COVID-19 2020-10-01 Completed Vaccine 00:00:00 Vital Signs Vital Name Observation Time Observation Value Comments Source BP Diastolic 2021-02-02 00:00:00 76 mm[Hg] [facility] Height 2021-02-02 00:00:00 70 [in_i] [facility] BMI (Body Mass Index) 2021-02-02 00:00:00 27.3 kg/m2 [facility] BP Systolic 2021-02-02 00:00:00 118 mm[Hg] [facility] Body Weight 2021-02-02 00:00:00 190.6 [lb_av] [facility] BP Diastolic 2020-12-02 00:00:00 86 mm[Hg] [facility] Height 2020-12-02 00:00:00 70 [in_i] [facility] BMI (Body Mass Index) 2020-12-02 00:00:00 26.3 kg/m2 [facility] BP Systolic 2020-12-02 00:00:00 123 mm[Hg] [facility] Body Weight 2020-12-02 00:00:00 183 [lb_av] [facility] BP Systolic 2022-09-20 09:45:00 127 mm[Hg] BP Diastolic 2022-09-20 09:45:00 85 mm[Hg] Weight Measured 2022-09-20 09:45:00 185.60 pounds Height Measured 2022-09-20 09:45:00 60.10 inches Body Temperature 2022-09-20 09:45:00 98.30 degrees Heart Rate 2022-09-20 09:45:00 99.00 /min Respiratory Rate 2022-09-20 09:45:00 18.00 /min BP Systolic 2022-01-02 15:30:00 117 mm[Hg] BP Diastolic 2022-01-02 15:30:00 74 mm[Hg] Weight Measured 2022-01-02 15:30:00 200.20 pounds Height Measured 2022-01-02 15:30:00 60.10 inches Body Temperature 2022-01-02 15:30:00 97.60 degrees Heart Rate 2022-01-02 15:30:00 88.00 /min Respiratory Rate 2022-01-02 15:30:00 BP Systolic 2021-10-30 13:16:00 120 mm[Hg] BP Diastolic 2021-10-30 13:16:00 80 mm[Hg] Weight Measured 2021-10-30 13:16:00 199.20 pounds Height Measured 2021-10-30 13:16:00 60.10 inches Body Temperature 2021-10-30 13:16:00 98.00 degrees Heart Rate 2021-10-30 13:16:00 125.00 /min Respiratory Rate 2021-10-30 13:16:00 16.00 /min BP Systolic 2021-09-02 08:09:00 116 mm[Hg] BP Diastolic 2021-09-02 08:09:00 81 mm[Hg] Weight Measured 2021-09-02 08:09:00 192.80 pounds Height Measured 2021-09-02 08:09:00 60.10 inches Body Temperature 2021-09-02 08:09:00 98.10 degrees Heart Rate 2021-09-02 08:09:00 83.00 /min Respiratory Rate 2021-09-02 08:09:00 BP Systolic 2021-04-13 16:49:00 124 mm[Hg] BP Diastolic 2021-04-13 16:49:00 77 mm[Hg] Weight Measured 2021-04-13 16:49:00 192.70 pounds Height Measured 2021-04-13 16:49:00 60.10 inches Body Temperature 2021-04-13 16:49:00 98.20 degrees Heart Rate 2021-04-13 16:49:00 96.00 /min Respiratory Rate 2021-04-13 16:49:00 16.00 /min BP Systolic 2020-11-21 09:23:00 121 mm[Hg] BP Diastolic 2020-11-21 09:23:00 85 mm[Hg] Weight Measured 2020-11-21 09:23:00 182.80 pounds Height Measured 2020-11-21 09:23:00 60.10 inches Body Temperature 2020-11-21 09:23:00 97.10 degrees Heart Rate 2020-11-21 09:23:00 89.00 /min Respiratory Rate 2020-11-21 09:23:00 16.00 /min BP Systolic 2020-08-24 11:33:00 122 mm[Hg] BP Diastolic 2020-08-24 11:33:00 82 mm[Hg] Weight Measured 2020-08-24 11:33:00 181.60 pounds Height Measured 2020-08-24 11:33:00 60.10 inches Body Temperature 2020-08-24 11:33:00 98.30 degrees Heart Rate 2020-08-24 11:33:00 89.00 /min Respiratory Rate 2020-08-24 11:33:00 BP Systolic 2020-04-22 14:06:00 107 mm[Hg] BP Diastolic 2020-04-22 14:06:00 77 mm[Hg] Weight Measured 2020-04-22 14:06:00 198.40 pounds Height Measured 2020-04-22 14:06:00 60.10 inches Body Temperature 2020-04-22 14:06:00 98.40 degrees Heart Rate 2020-04-22 14:06:00 87.00 /min Respiratory Rate 2020-04-22 14:06:00 16.00 /min Procedures This patient has no known procedures. Plan of Care Planned Activity Planned Date Details Comments Source Diagnostic Test 2021-02-02 glucose, Village Fami ly Pending 00:00:00 fingerstick, blood Practice [code = glucose, fingerstick, blood] Goal Plan of Care Note [code = 04692-7] Goal Plan of Care Note [code = 99109-9] Goal Plan of Care Note [code = 55865-9] Goal Plan of Care Note [code = 10468-4] Goal Plan of Care Note [code = 54707-9] Goal Plan of Care Note [code = 09007-2] Goal Plan of Care Note [code = 48674-4] Goal Plan of Care Note [code = 22615-9] Goal Plan of Care Note [code = 53890-2] Goal Plan of Care Note [code = 49001-6] Encounters Start End Encounter Admission Attending Care Care Encounter Source Date/Time Date/Time Type Type Clinicians Facility Department ID 2021-06-16 Outpatient guillermina [facility] [id number] [facility] 13:08:01 g [id number] [facility] 2022-10-16 2022-10-16 Outpatient SFA SFA [id number] Milad 15:37:47 15:37:47 0221 [facility] [place] 2022-09-21 2022-09-21 Outpatient SFA SFA [id number] Milad 08:42:06 08:42:06 [id number] F [place] 2022-09-20 2022-09-20 Outpatient SFA SFA [id number] Milad 09:36:44 09:36:44 0126 F [place] 2022-09-20 2022-09-20 Outpatient [id number] 00:00:00 00:00:00 Visit [id number] 2021-07-14 2021-07-14 Outpatient Daniel_T VFP VFP [id number] 620 [facility] 01:49:00 01:49:00 [id number] Family Practic e 2021-06-09 2021-06-09 Outpatient Daniel_T VFP VFP [id number] 620 [facility] 02:34:00 02:34:00 [id number] Family Practic e 2021-05-06 2021-05-06 Outpatient Daniel_T VFP VFP [id number] 620 [facility] 01:01:00 01:01:00 [id number] Family Practic e 2021-04-01 2021-04-01 Outpatient Daniel_T VFP VFP [id number] 6-20 [facility] 01:01:00 01:01:00 [id number] Family Practic e 2021-02-24 2021-02-24 Outpatient Daniel_T VFP VFP [id number] 6-20 [facility] 01:52:00 01:52:00 [id number] Family Practic e 2021-02-24 2021-02-24 Outpatient Daniel_T VFP VFP [id number] 6-20 [facility] 01:52:00 01:52:00 [id number] Family Practic e 2021-02-09 2021-02-09 Outpatient Daniel_T VFP VFP [id number] [address] [place] [address] 02:47:00 02:47:00 [id number] Family Practic e 2021-02-09 2021-02-09 Outpatient Daniel_T VFP VFP [id number] [address] [place] [address] 02:47:00 02:47:00 [id number] Family Practic e 2021-02-08 2021-02-08 Outpatient Daniel_T VFP VFP [id number] [address] [place] [address] 02:58:00 02:58:00 [id number] Family Practic e 2021-02-07 2021-02-07 Outpatient Daniel_T VFP VFP [id number] [address] [place] [address] 05:17:00 05:17:00 [id number] Family Practic e 2021-02-02 2021-02-02 Outpatient Daniel_T VFP VFP [id number] [address] [place] [address] 06:20:00 06:20:00 [id number] Family Practic e 2021-02-02 2021-02-02 Outpatient Daniel_T VFP VFP [id number] [address] [place] [address] 06:20:00 06:20:00 [id number] Family Practic e 2021-02-02 2021-02-02 Dameon VFP [place] - [id number] V illage 00:00:00 00:00:00 [facility] Family DingLizz - Tommy sawyer MD: [id number] VM_HOU_Shafadi e [facility], [address], [place] [address] , Ph. 2021-01-18 2021-01-18 Outpatient Daniel_T VFP VFP [id number] [address] [place] [address] 01:01:00 01:01:00 [id number] Family Practic e 2021-01-18 2021-01-18 Outpatient Daniel_T VFP VFP [id number] [address] [place] [address] 01:01:00 01:01:00 [id number] Family Practic e 2021-01-11 2021-01-11 Outpatient Daniel_T VFP VFP [id number] [address] [place] [address] 01:30:00 01:30:00 [id number] Family Practic e 2020-12-06 2020-12-06 Outpatient Daniel_T VFP VFP [id number] [address] [place] [address] 10:26:00 10:26:00 [id number] Family Practic e 2020-12-06 2020-12-06 Outpatient Daniel_T VFP VFP [id number] [address] [place] [address] 10:26:00 10:26:00 [id number] Family Practic e 2020-12-06 2020-12-06 Outpatient Daniel_T VFP VFP [id number] [address] [place] [address] 10:26:00 10:26:00 [id number] Family Practic e 2020-12-06 2020-12-06 Outpatient Daniel_T VFP VFP [id number] [address] [place] [address] 10:26:00 10:26:00 [id number] Family Practic e 2020-12-02 2020-12-02 Outpatient Daniel_T VFP VFP [id number] [address] [place] [address] 05:21:00 05:21:00 [id number] Family Practic e 2020-12-02 2020-12-02 Dameon VFP [place] - [id number] V illage 00:00:00 00:00:00 [facility] Family Ding, Medical - Pracsheldon sawyer MD: [id number] VM_HOU_Shafadi e [facility], [address], [place] [address] , Ph. 2020-11-29 2020-11-29 Outpatient Daniel_T VFP VFP [id number] [address] [place] [address] 05:41:00 05:41:00 [id number] Family Practic e 2020-11-29 2020-11-29 Outpatient Daniel_T VFP VFP [id number] [address] [place] [address] 05:40:00 05:40:00 [id number] Family Practic e 2020-04-20 2020-04-20 Outpatient R MUSHTAQ [facility] [id number] Univers 10:00:00 10:00:00 SARAH armas [facility] 2020-02-25 2020-02-25 Refill Mushtaq [facility] [id number] 00:00:00 00:00:00 Sarah [place] 350.1.13.10 Laura 4.2.7.2.686 Profl[place] [id number] [address] 2020-02-17 2020-02-17 Telephone Landin, [facility] [id number] 00:00:00 00:00:00 Wentong [place] 350.1.13.10 [place] 4.2.7.2.686 Professio [id number] [address] 2020-02-11 2020-02-11 Outpatient R [facility] [id number] Univers 09:00:00 09:00:00 ity [facility] 2020-02-11 2020-02-11 Nurse Nurse, Benito [facility] [id number] 08:28:20 08:58:20 Visit Endo/Diab [place] 350.1.13.10 [place] 4.2.7.2.686 Professio [id number] [address] 2020-02-11 2020-02-11 Orders Doctor JOIE [id number] 00:00:00 00:00:00 Only Unassigned, BERTA 350.1.13.10 Morganza [facility] 4.2.7.2.686 [id number] 2020-02-11 2020-02-11 Telephone Landin, [facility] [id number] 00:00:00 00:00:00 Sarah [place] 350.1.13.10 [place] 4.2.7.2.686 Professio [id number] [address] 2020-02-09 2020-02-09 Telephone Landin, [facility] [id number] 00:00:00 00:00:00 Scarlettong [place] 350.1.13.10 [place] 4.2.7.2.686 Professio [phone] [address] 2020-02-05 2020-02-05 Refill Landin, [facility] [id number] 00:00:00 00:00:00 Scarlettong [place] 350.1.13.10 [place] 4.2.7.2.686 Professio [id number] [address] 2020-01-31 2020-01-31 Emergency X CHU [facility] ERT [id number] Univers 17:31:47 20:25:00 MARIAM [facility] 2020-01-31 2020-01-31 Emergency Ramonita Davila [facility] 1.2.840. [id number] 17:31:47 20:25:00 Mariam Mondragon 350.1.13.10 [place] 4.2.7.2.686 [place] [id number] 2020-01-28 2020-01-28 [facility] [id number] 00:00:00 00:00:00 Sarah [place] 350.1.13.10 [place] 4.2.7.2.686 Professio [id number] [address] 2020-01-20 2020-01-20 Outpatient R MUSHTAQ [facility] [id number] Univers 14:00:00 14:00:00 [facility] 2020-01-20 2020-01-20 Telephone [facility] [id number] 00:00:00 00:00:00 Sarah [place] 350.1.13.10 [place] 4.2.7.2.686 Professio [phone] [address] 2020-01-12 2020-01-12 [facility]phone [facility] [id number] 00:00:00 00:00:00 Sarah [place] 350.1.13.10 [place] 4.2.7.2.686 Professio [id number] [address] 2019-12-29 2019-12-29 Outpatient R MUSHTAQ [facility] [id number] Univers 14:30:00 14:30:00 [facility] 2019-12-29 2019-12-29 [facility]medici [facility] [id number] 08:07:36 08:37:36 ne Visit Sarah [place] 350.1.13.10 [place] 4.2.7.2.686 Professio [id number] [address] 2019-10-27 2019-10-27 [facility] [id number] 00:00:00 00:00:00 Sarah [place] 350.1.13.10 [place] 4.2.7.2.686 Proflily [id number] formerly [facility] [address] [facility] 2019-10-23 2019-10-23 Telephone LISETH aLndin [id number] 00:00:00 00:00:00 Sarah [place] 350.1.13.10 [place] 4.2.7.2.686 [place] [phone] [address] 2019-09-22 2019-09-22 Office Mushtaq [facility] [id number] 10:59:01 11:59:40 Visit Sarah [place] 350.1.13.10 [place] 4.2.7.2.686 [place] [id number] [address] Results Test Description Test Time Test Comments Results Result Comments Source HEMOGLOBIN A1c 2022-10-18 03:23:20 Test Item Value Reference Range Interpretation Comme nts HEMOGLOBIN A1c (test 8.9 % 4.2-5.6 H [employer] GUIDELINES FOR code = 59963) HGB A1C: PREDI ABETES/INCREASED RISK . . . . . . . 5.7-6.4% DI AGNOSIS OF DIABETES . . . . . . . . . >=6.5% WITH CONFIRMATION OR APPROPRIATE SYM PTOMS NOTE: ASSAY MAY BE AFFECTED BY HEM OGLOBINOPATHIES (SICKLE CELL ANEMIA, S-C DIS EASE, OTHERS) OR ARTIFICIALLY LOWERED BY DECR EASED RED CELL SURVIVAL (HEMOLYTIC ANEM IAS, BLOOD LOSS, ETC.). CONSIDER ALTERN ATE TESTING OR LABORATORY CONSULTATION. * [facility] has important pathology staff changes e ffective 10/24/2022. New pathology staff will provide uninterrupted, excellent patie nt care and clinical consultation. S ee URL: [email or web address]. UNLESS OTHERWISE INDIC ATED, ALL TESTING PERFORMED AT [employer] [address] [place] [address] [employer] MECHANIC: GABRIELLA WALTERS M.D. CLIA NUMBER [id number] [place]. [id number] COMPREHENSIVE METABOLIC [id number] 05:24:16 Test Item Value Reference Range Interpretation Comments GLUCOSE (test code = 110 MG/DL 70-99 H 2216) BUN (test code = 12 MG/DL 6-20 2207) CREATININE (test 0.85 MG/DL 0.60-1.30 code = 2213) eGFR (2020 CKD-EPI) 93 ML/MIN/1.73 >60 (test code = 46274) CALC BUN/CREAT (test 14 RATIO 6-28 code = 223) SODIUM (test code = 144 MEQ/L 203-062 0206) POTASSIUM (test code 5.1 MEQ/L 3.5-5.4 = 2227) CHLORIDE (test code 108 MEQ/L 95-107 H = 2214) CARBON DIOXIDE (test 24 MEQ/L 19-31 code = 2205) CALCIUM (test code = 9.5 MG/DL 8.5-10.5 2208) PROTEIN, TOTAL (test 7.1 G/DL 6.1-8.3 code = 2228) ALBUMIN (test code = 3.8 G/DL 3.5-5.2 2200) CALC GLOBULIN (test 3.3 G/DL 1.9-3.7 code = 2239) CALC A/G RATIO (test 1.2 RATIO 1.0-2.6 code = 2233) BILIRUBIN, TOTAL 0.6 MG/DL See_Comment [Automated message] (test code = 2206) The syste m which generated this result transmit talia reference range : <=1.2. The refe rence range was not u sed to interpret th is result as normal/abnormal . ALKALINE PHOSPHATASE 68 U/L 40-114 (test code = 2203) AST (test code = 15 U/L 9-40 2217) ALT (test code = 10 U/L 5-40 2218) ALBUMIN/CREATININE RATIO, URINE, [id number] 03:15:12 Test Item Value Reference Range Interpretation Comments CREATININE, URINE, 152.7 MG/DL NOT ESTAB CONC. (test code = 2071) ALBUMIN, URINE, 0.3 MG/DL NOT ESTAB RANDOM (test code = 47102) CALC 2 MG/G <30 Note: ALBUMIN/CREAT, RND Albumin/C reatinine ratio (test code = reference inter maria e 00718) reflects ADA an d NKF guidelines. UNL ESS OTHERWISE INDIC ATED, ALL TESTING PERFORM ED ATCLINICAL PATH OLOGY LABORATORIES, I [address]. [address] [place] [address] LABORATORY DIRE CTOR: GABRIELLA WALTERS M.D. CLIA NUMBER [id number] [place] [id number] HEMOGLOBIN [id number] 02:33:28 Test Item Value Reference Range Interpretation Comments HEMOGLOBIN A1c (test 9.1 % 4.2-5.6 H AMERIC AN DIABETES code = 43217) ASSOCIATION IDELINES FOR HGB A1C: PREDIABETES/INC REASED RISK . . . . . . . 5.7 -6.4% DIAGNOSIS OF DI ABETES . . . . . . . . . >=6 .5% WITH CONFIRMATION OR APPROPRIATE SYMPTOMS NOTE: ASSAY MAY BE AFFECTED BY HEMOGLOBINOPATH IES (SICKLE CELL ANEMIA, S- C DISEASE, OTHERS) OR JEOVANNY FICIALLY LOWERED BY DECR EASED RED CELL SURVIVAL ( HEMOLYTIC ANEMIAS, BLOOD LOSS, ETC.). CONSIDER ALTERN ATE TESTING OR LABORATORY C ONSULTATION. COMPREHENSIVE METABOLIC [id number] 07:18:10 Test Item Value Reference Range Interpretation Comments GLUCOSE (test code = 146 MG/DL 70-99 H 2216) BUN (test code = 12 MG/DL 6-20 2207) CREATININE (test 0.95 MG/DL 0.60-1.30 code = 2214) eGFR (2020 CKD-EPI) 82 ML/MIN/1.73 >60 (test code = 74303) CALC BUN/CREAT (test 13 RATIO 6-28 code = 2235) SODIUM (test code = 144 MEQ/L 766-605 0137) POTASSIUM (test code 5.4 MEQ/L 3.5-5.4 = 2227) CHLORIDE (test code 106 MEQ/L 95-107 = 2215) CARBON DIOXIDE (test 29 MEQ/L 19-31 code = 2206) CALCIUM (test code = 9.9 MG/DL 8.5-10.5 2208) PROTEIN, TOTAL (test 7.2 G/DL 6.1-8.3 code = 2229) ALBUMIN (test code = 4.2 G/DL 3.5-5.2 2200) CALC GLOBULIN (test 3.0 G/DL 1.9-3.7 code = 2240) CALC A/G RATIO (test 1.4 RATIO 1.0-2.6 code = 2234) BILIRUBIN, TOTAL 0.5 MG/DL See_Comment [Automated message] (test code = 2207) The syste m which generated this result transmit talia reference range : <=1.2. The refe rence range was not u sed to interpret th is result as normal/abnormal . ALKALINE PHOSPHATASE 74 U/L 40-114 (test code = 2203) AST (test code = 12 U/L 9-40 2217) ALT (test code = 10 U/L 5-40 2218) LIPID [id number] 07:18:10 Test Item Value Reference Range Interpretation Comments CHOLESTEROL (test 149 MG/DL <200 code = 2210) TRIGLYCERIDES (test 45 MG/DL <150 code = 2232) HDL CHOLESTEROL (test 60 MG/DL >39 code = 2220) CALC LDL CHOL (test 76 MG/DL <100 NOTE: C ALCULATED LDL code = 2237) IS BASED ON SIRISHA-FLORES METHOD WHICHINCLUDES ADJUSTABLE TRIGLYCERIDE:VL DL CHOLESTEROL RAT IO.THIS FACTOR VARIES B Y MEASURED TRIGLY CERIDE AND NON-HDLCHOL ESTEROL CONCENTRATIONS WITH INCREASED CALCU LATED LDL SEENIN HIGH ER TRIGLYCERIDE OR LOWER NON-HDL SPECIME NS. FOR MOREINFORMATION , SEE CLIENT ANNOUNCE MENT AT [email or web address] RISK RATIO LDL/HDL 1.27 RATIO <3.22 (test code = 2238) HEMOGLOBIN [id number] 05:17:57 Test Item Value Reference Range Interpretation Comments HEMOGLOBIN A1c (test 7.7 % 4.2-5.6 H AMERIC AN DIABETES code = 27259) ASSOCIATION IDELINES FOR HGB A1C: PREDIABETES/INC REASED RISK . . . . . . . 5.7 -6.4% DIAGNOSIS OF DI ABETES . . . . . . . . . >=6 .5% WITH CONFIRMATION OR APPROPRIATE SYMPTOMS NOTE: ASSAY MAY BE AFFECTED BY HEMOGLOBINOPATH IES (SICKLE CELL ANEMIA, S- C DISEASE, OTHERS) OR JEOVANNY FICIALLY LOWERED BY DECR EASED RED CELL SURVIVAL ( HEMOLYTIC ANEMIAS, BLOOD LOSS, ETC.). CONSIDER ALTERN ATE TESTING OR LABORATORY C ONSULTATION. UNLESS OTHERWIS E INDICATED, ALL TESTING PER FORMED ATCLINICAL PATH OLcuaQeaY LABORATORIES, I [address] [place] [address] LABORATORY DIRE CTOR: GABRIELLA RUSSELL M.D. CLIA NUMBER [id number] [facility] [place]. [id number] HEMOGLOBIN [id number] 00:00:00 Test Item Value Reference Range Interpretation Comments HEMOGLOBIN A1c (test code = 19730) 7.7 % COMPREHENSIVE METABOLIC [id number] 00:00:00 Test Item Value Reference Range Interpretation Comments GLUCOSE (test code = 2217) 146 MG/DL BUN (test code = 2208) 12 MG/DL CREATININE (test code = 2214) 0.95 MG/DL eGFR (2020 CKD-EPI) (test code 82 ML/MIN/1.73 = 12984) CALC BUN/CREAT (test code = 13 RATIO 2235) SODIUM (test code = 2231) 144 MEQ/L POTASSIUM (test code = 2228) 5.4 MEQ/L CHLORIDE (test code = 2215) 106 MEQ/L CARBON DIOXIDE (test code = 29 MEQ/L 2205) CALCIUM (test code = 2209) 9.9 MG/DL PROTEIN, TOTAL (test code = 7.2 G/DL 2228) ALBUMIN (test code = 2201) 4.2 G/DL CALC GLOBULIN (test code = 3.0 G/DL 2239) CALC A/G RATIO (test code = 1.4 RATIO 2233) BILIRUBIN, TOTAL (test code = 0.5 MG/DL 2206) ALKALINE PHOSPHATASE (test 74 U/L code = 2204) AST (test code = 2218) 12 U/L ALT (test code = 2219) 10 U/L COMPREHENSIVE METABOLIC [id number] 00:00:00 Test Item Value Reference Range Interpretation Comments GLUCOSE (test code = 2217) 146 MG/DL BUN (test code = 2208) 12 MG/DL CREATININE (test code = 2214) 0.95 MG/DL eGFR (2020 CKD-EPI) (test code 82 ML/MIN/1.73 = 62860) CALC BUN/CREAT (test code = 13 RATIO 2235) SODIUM (test code = 2231) 144 MEQ/L POTASSIUM (test code = 2228) 5.4 MEQ/L CHLORIDE (test code = 2215) 106 MEQ/L CARBON DIOXIDE (test code = 29 MEQ/L 2205) CALCIUM (test code = 2209) 9.9 MG/DL PROTEIN, TOTAL (test code = 7.2 G/DL 2228) ALBUMIN (test code = 2201) 4.2 G/DL CALC GLOBULIN (test code = 3.0 G/DL 2240) CALC A/G RATIO (test code = 1.4 RATIO 2234) BILIRUBIN, TOTAL (test code = 0.5 MG/DL 2206) ALKALINE PHOSPHATASE (test 74 U/L code = 2204) AST (test code = 2218) 12 U/L ALT (test code = 2219) 10 U/L LIPID [id number] 00:00:00 Test Item Value Reference Range Interpretation Comments CHOLESTEROL (test code = 2210) 149 MG/DL TRIGLYCERIDES (test code = 2232) 45 MG/DL HDL CHOLESTEROL (test code = 2220) 60 MG/DL CALC LDL CHOL (test code = 2237) 76 MG/DL RISK RATIO LDL/HDL (test code = 1.27 RATIO 2238) LIPID [id number] 00:00:00 Test Item Value Reference Range Interpretation Comments CHOLESTEROL (test code = 2210) 149 MG/DL TRIGLYCERIDES (test code = 2232) 45 MG/DL HDL CHOLESTEROL (test code = 2220) 60 MG/DL CALC LDL CHOL (test code = 2237) 76 MG/DL RISK RATIO LDL/HDL (test code = 1.27 RATIO 2238) HEMOGLOBIN [id number] 00:00:00 Test Item Value Reference Range Interpretation Comments HEMOGLOBIN A1c (test code = 25517) 7.7 % HEMOGLOBIN [id number] 00:00:00 Test Item Value Reference Range Interpretation Comments HEMOGLOBIN A1c (test code = 52347) 7.7 % HEMOGLOBIN [id number] 00:00:00 Test Item Value Reference Range Interpretation Comments HEMOGLOBIN A1c (test code = 34976) 8.0 % HEMOGLOBIN [id number] 00:00:00 Test Item Value Reference Range Interpretation Comments HEMOGLOBIN A1c (test code = 75698) 8.0 % HEMOGLOBIN [id number] 00:00:00 Test Item Value Reference Range Interpretation Comments HEMOGLOBIN A1c (test code = 79811) 8.0 % HEMOGLOBIN [id number] 00:00:00 Test Item Value Reference Range Interpretation Comments HEMOGLOBIN A1c (test code = 99073) 8.1 % HEMOGLOBIN [id number] 00:00:00 Test Item Value Reference Range Interpretation Comments HEMOGLOBIN A1c (test code = 98813) 8.1 % HEMOGLOBIN [id number] 00:00:00 Test Item Value Reference Range Interpretation Comments HEMOGLOBIN A1c (test code = 31893) 8.1 % HEMOGLOBIN [id number] 00:00:00 Test Item Value Reference Range Interpretation Comments HEMOGLOBIN A1c (test code = 68911) 8.6 % HEMOGLOBIN [id number] 00:00:00 Test Item Value Reference Range Interpretation Comments HEMOGLOBIN A1c (test code = 27192) 8.6 % HEMOGLOBIN [id number] 00:00:00 Test Item Value Reference Range Interpretation Comments HEMOGLOBIN A1c (test code = 83575) 8.6 % COMPREHENSIVE METABOLIC [id number] 00:00:00 Test Item Value Reference Range Interpretation Comments GLUCOSE (test code = 2217) 39 MG/DL BUN (test code = 2208) 12 MG/DL CREATININE (test code = 2214) 0.78 MG/DL eGFR AMER. (test code 117 ML/MIN/1.73 = 90127) eGFR NON- AMER. (test 101 ML/MIN/1.73 code = 51901) CALC BUN/CREAT (test code = 15 RATIO 2235) SODIUM (test code = 2231) 142 MEQ/L POTASSIUM (test code = 2228) 5.1 MEQ/L CHLORIDE (test code = 2215) 106 MEQ/L CARBON DIOXIDE (test code = 26 MEQ/L 2205) CALCIUM (test code = 2209) 9.3 MG/DL PROTEIN, TOTAL (test code = 7.1 G/DL 2228) ALBUMIN (test code = 2201) 4.5 G/DL CALC GLOBULIN (test code = 2.6 G/DL 2240) CALC A/G RATIO (test code = 1.7 RATIO 2234) BILIRUBIN, TOTAL (test code = 0.2 MG/DL 2206) ALKALINE PHOSPHATASE (test 56 U/L code = 2204) AST (test code = 2218) 18 U/L ALT (test code = 2219) 11 U/L COMPREHENSIVE METABOLIC [id number] 00:00:00 Test Item Value Reference Range Interpretation Comments GLUCOSE (test code = 2217) 39 MG/DL BUN (test code = 2208) 12 MG/DL CREATININE (test code = 2214) 0.78 MG/DL eGFR AMER. (test code 117 ML/MIN/1.73 = 93496) eGFR NON- AMER. (test 101 ML/MIN/1.73 code = 69623) CALC BUN/CREAT (test code = 15 RATIO 2235) SODIUM (test code = 2231) 142 MEQ/L POTASSIUM (test code = 2228) 5.1 MEQ/L CHLORIDE (test code = 2215) 106 MEQ/L CARBON DIOXIDE (test code = 26 MEQ/L 2205) CALCIUM (test code = 2209) 9.3 MG/DL PROTEIN, TOTAL (test code = 7.1 G/DL 2228) ALBUMIN (test code = 2201) 4.5 G/DL CALC GLOBULIN (test code = 2.6 G/DL 2239) CALC A/G RATIO (test code = 1.7 RATIO 2233) BILIRUBIN, TOTAL (test code = 0.2 MG/DL 2206) ALKALINE PHOSPHATASE (test 56 U/L code = 2204) AST (test code = 2218) 18 U/L ALT (test code = 2219) 11 U/L HEMOGLOBIN [id number] 00:00:00 Test Item Value Reference Range Interpretation Comments HEMOGLOBIN A1c (test code = 83651) 8.9 % HEMOGLOBIN [id number] 00:00:00 Test Item Value Reference Range Interpretation Comments HEMOGLOBIN A1c (test code = 28222) 8.9 % COMPREHENSIVE METABOLIC [id number] 00:00:00 Test Item Value Reference Range Interpretation Comments GLUCOSE (test code = 2217) 296 MG/DL BUN (test code = 2208) 15 MG/DL CREATININE (test code = 2214) 0.95 MG/DL eGFR AMER. (test code 93 ML/MIN/1.73 = 50438) eGFR NON- AMER. (test 80 ML/MIN/1.73 code = 06383) CALC BUN/CREAT (test code = 16 RATIO 2235) SODIUM (test code = 2231) 139 MEQ/L POTASSIUM (test code = 2228) 5.0 MEQ/L CHLORIDE (test code = 2215) 104 MEQ/L CARBON DIOXIDE (test code = 26 MEQ/L 2205) CALCIUM (test code = 2209) 9.5 MG/DL PROTEIN, TOTAL (test code = 6.7 G/DL 2228) ALBUMIN (test code = 2201) 4.1 G/DL CALC GLOBULIN (test code = 2.6 G/DL 2240) CALC A/G RATIO (test code = 1.6 RATIO 2234) BILIRUBIN, TOTAL (test code = <0.2 MG/DL 220) ALKALINE PHOSPHATASE (test 74 U/L code = 2204) AST (test code = 2218) 15 U/L ALT (test code = 2219) 15 U/L COMPREHENSIVE METABOLIC [id number] 00:00:00 Test Item Value Reference Range Interpretation Comments GLUCOSE (test code = 2217) 296 MG/DL BUN (test code = 2208) 15 MG/DL CREATININE (test code = 2214) 0.95 MG/DL eGFR AMER. (test code 93 ML/MIN/1.73 = 64622) eGFR NON- AMER. (test 80 ML/MIN/1.73 code = 43279) CALC BUN/CREAT (test code = 16 RATIO 2235) SODIUM (test code = 2231) 139 MEQ/L POTASSIUM (test code = 2228) 5.0 MEQ/L CHLORIDE (test code = 2215) 104 MEQ/L CARBON DIOXIDE (test code = 26 MEQ/L 2205) CALCIUM (test code = 2209) 9.5 MG/DL PROTEIN, TOTAL (test code = 6.7 G/DL 2228) ALBUMIN (test code = 2201) 4.1 G/DL CALC GLOBULIN (test code = 2.6 G/DL 2240) CALC A/G RATIO (test code = 1.6 RATIO 2234) BILIRUBIN, TOTAL (test code = <0.2 MG/DL 2206) ALKALINE PHOSPHATASE (test 74 U/L code = 2204) AST (test code = 2218) 15 U/L ALT (test code = 2219) 15 U/L LIPID [id number] 00:00:00 Test Item Value Reference Range Interpretation Comments CHOLESTEROL (test code = 2210) 164 MG/DL TRIGLYCERIDES (test code = 2232) 114 MG/DL HDL CHOLESTEROL (test code = 2220) 63 MG/DL CALC LDL CHOL (test code = 2237) 80 MG/DL RISK RATIO LDL/HDL (test code = 1.27 RATIO 2238) LIPID [id number] 00:00:00 Test Item Value Reference Range Interpretation Comments CHOLESTEROL (test code = 2210) 164 MG/DL TRIGLYCERIDES (test code = 2232) 114 MG/DL HDL CHOLESTEROL (test code = 2220) 63 MG/DL CALC LDL CHOL (test code = 2237) 80 MG/DL RISK RATIO LDL/HDL (test code = 1.27 RATIO 2238) HEMOGLOBIN [id number] 00:00:00 Test Item Value Reference Range Interpretation Comments HEMOGLOBIN A1c (test code = 29398) 8.9 %
[2023-02-03] MEDS ORDERED: FAMOTIDINE 20 MG/2 ML VIAL IV ONE (22:30)
[2023-02-03] MEDS ORDERED: NA CHLORIDE 0.9% 1,000 ML ONE (22:30)
[2023-02-03] MEDS ORDERED: KETOROLAC 30 MG/ML INJ ONE (22:30)
[2023-02-03 22:33] LABS: Urine Bilirubin NEGATIVE (Negative); Urine Blood Negative (Negative); Urine Clarity Clear (Clear); Urine Color Yellow (Yellow); Urine Glucose 4+ (Over) (Negative); Urine Protein NEGATIVE (Negative); Urine Urobilinogen Normal (Normal); Urine pH 5.5 (5.0-7.0)
[2023-02-03 22:37] LABS: Absolute Lymphocytes (CBC) 2.5 K/uL (0.7-4.9); Lymphocytes % 31.2 % (15.3-44.8); MCV 84.7 fL (80-100); MPV 8.5 fL (7.6-11.3); RBC Red Blood Cell Count 4.37 M/uL (3.86-4.86)
--- NOTE | 2023-02-03 22:41 | RAD REPORT ---
EXAM DESCRIPTION: US - Abdomen Exam Limited - 02/03/2023 10:23 pm CLINICAL HISTORY: Abdominal pain. COMPARISON: 2014 FINDINGS: The gallbladder wall is not thickened. A gallstone is not seen. Small amount of gallbladder sludge The biliary tree is normal caliber. IMPRESSION: Small amount of gallbladder sludge
[2023-02-03 22:50] LABS: Albumin 3.4 g/dL (3.4-5.0); Bilirubin Total 0.4 mg/dL (0.2-1.0); Potassium 4.1 mEq/L (3.5-5.1); Protein, Total 7.4 g/dL (6.4-8.2)
--- NOTE | 2023-02-03 23:38 | ER ---
Nurse's Notes [facility] Name: Teetee Hannah Age: 32 yrs Sex: Female : 1990 Arrival Date: 02/03/2023 Time: 21:34 Bed 16 Private MD: Diagnosis: Upper abdominal pain, unspecified Presentation: 02/03 21:42 Chief complaint: Patient states: right flank pain of 10,onset 0700 this AM. Patient pf1 denies any other symptoms. 21:42 Coronavirus screen: Vaccine status: Patient reports receiving the 2nd dose of the covid pf1 vaccine. Moderna Client denies travel out of the [place] in the last 14 days. At this time, the client does not indicate any symptoms associated with coronavirus-19. Ebola Screen: Patient negative for fever greater than or equal to 101.5 degrees Fahrenheit, and additional compatible Ebola Virus Disease symptoms. Initial Sepsis Screen: Does the patient meet any 2 criteria? No. Patient's initial sepsis screen is negative. Does the patient have a suspected source of infection? No. Patient's initial sepsis screen is negative. Risk Assessment: Do you want to hurt yourself or someone else? Patient reports no desire to harm self or others. 21:42 Method Of Arrival: Ambulatory pf1 21:42 Acuity: LO 3 pf1 Historical: - Allergies: 21:45 No Known Allergies; pf1 - PMHx: 22:11 Bipolar disorder; Depression; Diabetes - IDDM; pf1 - Immunization history:: Adult Immunizations up to date, Client reports receiving the 2nd dose of the Covid vaccine, Moderna Last tetanus immunization: > 10 years ago Flu vaccine is up to date. - Social history:: Smoking status: Reported history of juuling and/or vaping. Patient uses alcohol, occasionally. Patient/guardian denies using street drugs. Screenin:45 [facility] ED Fall Risk Assessment (Adult) History of falling in the last 3 months, pf1 including since admission No falls in past 3 months (0 pts) Confusion or Disorientation No (0 pts) Intoxicated or Sedated No (0 pts) Impaired Gait No (0 pts) Mobility Assist Device Used No (0 pt) Altered Elimination No (0 pt) Score/Fall Risk Level 0 - 2 = Low Risk Oriented to surroundings, Maintained a safe environment, Educated pt \T\ family on fall prevention, incl call for assistance when getting out of bed, Assessed \T\ reinforced patient's understanding of fall precautions, Provided non-skid footwear, Hourly rounding (assess needs \T\ fall precautionary measures) done, Used ambulatory aids as needed (educated on \T\ assisted with), Used gait belt as appropriate. 21:45 Abuse screen: Denies threats or abuse. Nutritional screening: No deficits noted. pf1 Tuberculosis screening: No symptoms or risk factors identified. Assessment: 21:42 General: Appears in no apparent distress. comfortable, well groomed, well developed, pf1 Behavior is calm, cooperative, appropriate for age, quiet. 21:42 Pain: Complains of pain in right flank Pain currently is 10 out of 10 on a pain scale. pf1 Neuro: No deficits noted. Level of Consciousness is awake, alert, obeys commands, Oriented to person, place, time, situation. Cardiovascular: No deficits noted. Capillary refill < 3 seconds Patient's skin is warm and dry. Respiratory: No deficits noted. Airway is patent Respiratory effort is even, unlabored, Respiratory pattern is regular, symmetrical, Breath sounds are clear bilaterally. GI: No deficits noted. Abdomen is flat, non-distended, Bowel sounds present X 4 quads. Abd is soft and non tender X 4 quads. : No deficits noted. No signs and/or symptoms were reported regarding the genitourinary system. EENT: No deficits noted. No signs and/or symptoms were reported regarding the EENT system. Derm: No deficits noted. No signs and/or symptoms reported regarding the dermatologic system. Musculoskeletal: Reports pain in right flank Pain is 10 out of 10 on a pain scale. 22:45 Reassessment: Patient appears in no apparent distress at this time. No changes from pf1 previously documented assessment. Patient is alert, oriented x 3, equal unlabored respirations, skin warm/dry/pink. Patient states symptoms have improved. 23:47 Reassessment: Upon D/C patient, patient diaphoretic and lethargic, then checked a FSBGL.pf1 23:50 Reassessment: FSBGL 25, notified Nadya Franklin NP,. Patient alert and talking, pf1 provided patient with orange juice x 4. /12 00:35 Reassessment: Patient eating a peanut butter and jelly sandwich and drank 2 more orange pf1 juices. . 01:05 Reassessment: Patient appears in no apparent distress at this time. No changes from pf1 previously documented assessment. Patient is alert, oriented x 3, equal unlabored respirations, skin warm/dry/pink. Patient states feeling better. Patient states symptoms have improved. Patient alert and orientated x 4, non-diaphoretic. Repeat FSBGL 188. Notified Dr. Chavis, Patient to be discharged. . Vital Signs: 02/03 21:42 BP 111 / 76; Pulse 74; Resp 18; Temp 97.7; Pulse Ox 100% on R/A; Weight 87.54 kg; pf1 Height 5 ft. 10 in. ; Pain 10/10; 22:30 BP 111 / 72; Pulse 74; Resp 18; Pulse Ox 100% on R/A; Pain 4/10; pf1 23:30 BP 128 / 71; Pulse 88; Resp 16; Pulse Ox 98% on R/A; pf1 02/04 00:30 BP 130 / 80; Pulse 80; Resp 15; Pulse Ox 100% on R/A; pf1 01:00 BP 117 / 81; Pulse 80; Resp 16; Pulse Ox 100% on R/A; pf1 02/03 21:42 Body Mass Index 27.69 (87.54 kg, 177.8 cm) pf1 02/03 21:42 Pain Scale: Adult pf1 22:30 Pain Scale: Adult pf1 ED Course: 02/03 21:38 Patient arrived in ED. ja2 21:39 Nadya Franklin [facility]-C [facility]. kb 21:39 Oscar Chavis MD is Attending Physician. kb 21:45 Patient has correct armband on for positive identification. Bed in low position. Call pf1 light in reach. 21:45 Arm band placed on right wrist. pf1 22:11 Triage completed. pf1 22:15 No provider procedures requiring assistance completed. Inserted saline lock: 22 gauge pf1 in left antecubital area, using aseptic technique. Blood collected. 22:24 Abdomen Limited US In Process Unspecified. EDMS 22:27 Corrina Atkins, RN is Primary Nurse. pf1 22:27 CBC with Diff Sent. pf1 22:27 CMP Sent. pf1 22:27 Lipase Sent. pf1 22:27 Test, Urine Sent. pf1 22:27 Urinalysis w/ reflexes Sent. pf1 02/04 01:11 IV discontinued, intact, bleeding controlled, No redness/swelling at site. Pressure pf1 dressing applied. Administered Medications: 02/03 22:32 Drug: NS 0.9% IV 1000 ml Route: IV; Rate: 1 bolus; Site: left antecubital; pf1 23:30 Follow up: Response: No adverse reaction; Marked relief of symptoms; IV Status: pf1 Completed infusion; IV Intake: 1000ml 22:32 Drug: Famotidine IVP 20 mg Route: IVP; Site: left antecubital; pf1 02/04 00:30 Follow up: Response: No adverse reaction; Marked relief of symptoms; Pain is decreased pf1 02/03 22:32 Drug: TORadol - Ketorolac IVP 15 mg Route: IVP; Site: left antecubital; pf1 23:30 Follow up: Response: No adverse reaction; Marked relief of symptoms; Pain is decreased pf1 02/04 00:10 Drug: D10 in Water IVP 250 ml Route: IVP; Site: left antecubital; pf1 00:45 Follow up: Response: No adverse reaction; Marked relief of symptoms pf1 Medication: 00:45 VIS not applicable for this client. pf1 Intake: 02/03 23:30 IV: 1000ml; Total: 1000ml. pf1 Outcome: 23:38 Discharge ordered by MD. calero 02/04 01:11 Discharged to home ambulatory, with family. pf1 Condition: improved Discharge instructions given to patient, family, Instructed on discharge instructions, follow up and referral plans. Demonstrated understanding of instructions, follow-up care, medications, Prescriptions given X 1. 01:11 Patient left the ED. pf1 Signatures: Dispatcher [employer] EDMS Nadya Franklin, WAYNEC PORTABLE IRRIGATION OPERATOR-Samara Fuentes Pamala, RN RN pf1 Corrections: (The following items were deleted from the chart) 06:44 06 21:42 Chief complaint: Patient states: left flank pain of 10,onset 0700 this AM. pf1 Patient denies any other symptoms pf1 02/04 06:48 02/03 22:11 Allergies: Humalog; pf1 pf1 02/04 06:48 06/11 21:45 PMHx: Insulin pump; pf1 pf1
--- NOTE | 2023-02-03 23:39 | EDPHYS ---
Physician Documentation [facility] Name: Teetee Hannah Age: 32 yrs Sex: Female : 1990 Arrival Date: 02/03/2023 Time: 21:34 Bed 16 Private MD: ED Physician Oscar Chavis HPI: 02/04 00:25 This 32 yrs old Female presents to ER via Ambulatory with complaints of Flank Pain. kb 00:25 The patient presents with abdominal pain in the right upper quadrant. Onset: The kb symptoms/episode began/occurred this morning. The symptoms do not radiate. Associated signs and symptoms: none. The symptoms are described as constant. Modifying factors: The symptoms are alleviated by nothing, the symptoms are aggravated by nothing. Severity of pain: At its worst the pain was mild moderate in the emergency department the pain is unchanged. The patient has not experienced similar symptoms in the past. The patient has not recently seen a physician. Historical: - Allergies: 02/03 21:45 No Known Allergies; pf1 - PMHx: 22:11 Bipolar disorder; Depression; Diabetes - IDDM; pf1 - Immunization history:: Adult Immunizations up to date, Client reports receiving the 2nd dose of the Covid vaccine, Moderna Last tetanus immunization: > 10 years ago Flu vaccine is up to date. - Social history:: Smoking status: Reported history of juuling and/or vaping. Patient uses alcohol, occasionally. Patient/guardian denies using street drugs. ROS: 02/04 00:25 Constitutional: Negative for fever, chills, and weight loss. kb Abdomen/GI: Positive for abdominal pain, Negative for nausea, vomiting, and diarrhea. All other systems are negative. Exam: 00:25 Constitutional: This is a well developed, well nourished patient who is awake, alert, kb and in no acute distress. Head/Face: Normocephalic, atraumatic. ENT: Moist Mucous membranes Cardiovascular: Regular rate and rhythm with a normal S1 and S2. No gallops, murmurs, or rubs. No pulse deficits. Respiratory: Respirations even and unlabored. No increased work of breathing. Talking in full sentences Abdomen/GI: Soft, non-tender. No distention Skin: Warm, dry with normal turgor. Normal color. MS/ Extremity: Pulses equal, no cyanosis. Neurovascular intact. Full, normal range of motion. Neuro: Awake and alert, GCS 15, oriented to person, place, time, and situation. Moves all extremities. Normal gait. Vital Signs: 02/03 21:42 BP 111 / 76; Pulse 74; Resp 18; Temp 97.7; Pulse Ox 100% on R/A; Weight 87.54 kg; pf1 Height 5 ft. 10 in. ; Pain 10/10; 22:30 BP 111 / 72; Pulse 74; Resp 18; Pulse Ox 100% on R/A; Pain 4/10; pf1 23:30 BP 128 / 71; Pulse 88; Resp 16; Pulse Ox 98% on R/A; pf1 02/04 00:30 BP 130 / 80; Pulse 80; Resp 15; Pulse Ox 100% on R/A; pf1 01:00 BP 117 / 81; Pulse 80; Resp 16; Pulse Ox 100% on R/A; pf1 02/03 21:42 Body Mass Index 27.69 (87.54 kg, 177.8 cm) pf1 02/03 21:42 Pain Scale: Adult pf1 22:30 Pain Scale: Adult pf1 MDM: 02/03 21:42 Patient medically screened. kb 02/04 00:25 Differential diagnosis: cholecystitis, Cholelithiasis, gastritis, gastroesophageal kb reflux disease. Data reviewed: vital signs, nurses notes. Counseling: I had a detailed discussion with the patient and/or guardian regarding: the historical points, exam findings, and any diagnostic results supporting the discharge/admit diagnosis, lab results, radiology results, the need for outpatient follow up, a family practitioner, a general surgeon, a supervisor pigment making, to return to the emergency department if symptoms worsen or persist or if there are any questions or concerns that arise at home. 00:26 Response to treatment: the patient's symptoms have markedly improved after treatment. kb 02/03 21:46 Order name: CBC with Diff; Complete Time: 22:54 kb 02/03 21:46 Order name: CMP; Complete Time: 22:51 kb 02/03 21:46 Order name: Lipase; Complete Time: 22:51 kb 02/03 21:46 Order name: Test, Urine; Complete Time: 22:51 kb 02/03 21:46 Order name: Urinalysis w/ reflexes; Complete Time: 22:51 kb 02/04 00:21 Order name: Glucose, Ancillary Testing; Complete Time: 00:25 EDMS 02/03 21:46 Order name: Abdomen Limited US; Complete Time: 22:51 kb 02/03 21:46 Order name: IV Saline Lock; Complete Time: 22:27 kb 02/03 21:46 Order name: Labs collected and sent; Complete Time: 22:27 kb Administered Medications: 02/03 22:32 Drug: NS 0.9% IV 1000 ml Route: IV; Rate: 1 bolus; Site: left antecubital; pf1 23:30 Follow up: Response: No adverse reaction; Marked relief of symptoms; IV Status: pf1 Completed infusion; IV Intake: 1000ml 22:32 Drug: Famotidine IVP 20 mg Route: IVP; Site: left antecubital; pf1 02/04 00:30 Follow up: Response: No adverse reaction; Marked relief of symptoms; Pain is decreased pf1 02/03 22:32 Drug: TORadol - Ketorolac IVP 15 mg Route: IVP; Site: left antecubital; pf1 23:30 Follow up: Response: No adverse reaction; Marked relief of symptoms; Pain is decreased pf1 02/04 00:10 Drug: D10 in Water IVP 250 ml Route: IVP; Site: left antecubital; pf1 00:45 Follow up: Response: No adverse reaction; Marked relief of symptoms pf1 Disposition Summary: 02/03/23 23:38 Discharge Ordered Location: Home kb Condition: Stable kb Diagnosis - Upper abdominal pain, unspecified kb Followup: kb - With: Emergency Department - When: As needed - Reason: Worsening of condition Followup: kb - With: Private Physician - When: 2 - 3 days - Reason: Recheck today's complaints, Continuance of care, Re-evaluation by your physician Discharge Instructions: - Discharge Summary Sheet kb - Abdominal Pain, Adult, [id number] kb Forms: - Medication Reconciliation Form kb - Thank You Letter kb - Antibiotic Education kb - Prescription Opioid Use kb Prescriptions: - Diclofenac Sodium 75 mg Oral tablet,delayed release (DR/EC) - take 1 tablet by ORAL route 2 times per day As needed; 30 tablet; Refills: 0, kb Product Selection Permitted Signatures: Dispatcher [employer] EDNadya Santos, HEAD CORRECTION OFFICER-C [facility]-Corrina Hall, RN RN pf1 Corrections: (The following items were deleted from the chart) 02/03 22:11 Allergies: Humalog; pf1 pf1 02/04 06:02/03 21:45 PMHx: Insulin pump; pf1 pf1
[2023-02-04] MEDS ORDERED: D10W 250 ML IV ONE (00:14)
[2023-02-04 01:16] VITALS: BP 111/76; TEMP 97.7; O2SAT 100
== END 2023-02-04 01:11 | disposition home or self-care (01) ==
LOC: ER 21:34
DX: R10.11 Right upper quadrant pain (principal)
CPT/HCPCS: 96361; 85025; 36415; 81025; 82947 ×2; 81003; 83690; 80053; 76705; 96375; 96374; 99284; J7030